=== PATIENT | female | born 1945 | race Hispanic/Latino ===

== ENCOUNTER → 2018-06-07 | Day surgery (SDC) | payer MEDICARE, OTHER ==
[2018-06-05 11:22] LABS: BASOPHILS # (AUTO) 0.1 (0.0-0.1); BASOPHILS % 0.6 % (0.0-1.0); EOSINOPHILS # (AUTO) 0.2 (0.0-0.4); EOSINOPHILS % 2.2 % (0.0-6.0); HEMATOCRIT 37.6 % (34.2-44.1); HEMOGLOBIN 12.5 g/dL (12.0-16.0); LYMPHOCYTES # (AUTO) 2.5 (1.0-3.2); LYMPHOCYTES % 31.5 % (18.0-39.1); MEAN CORPUSCULAR HEMOGLOBIN 33.2 pg (28-32); MEAN CORPUSCULAR HGB CONC 33.2 g/dL (31-35); MONOCYTES # (AUTO) 0.6 (0.2-0.8); MONOCYTES % 8.1 % (4.4-11.3); NEUTROPHILS # (AUTO) 4.5 (2.1-6.9); NEUTROPHILS % 57.3 % (38.7-80.0); PLATELET COUNT 207 x10e3/uL (140-360); RED BLOOD COUNT 3.76 x10e6/uL (3.6-5.1); RED CELL DISTRIBUTION WIDTH 12.2 % (11.7-14.4)
--- NOTE | 2018-06-05 11:22 | Diagnostic Imaging Report ---
EXAMINATION: PA and lateral views of the chest. COMPARISON: None CLINICAL HISTORY: Preoperative evaluation, urologic surgery DISCUSSION: Lines/tubes: None. Lungs: The lungs are well inflated and clear. No pneumonia or pulmonary edema. Pleura: No pleural effusion or pneumothorax. Heart and mediastinum: The cardiomediastinal silhouette is normal. Bones and soft tissues: No acute bony abnormalities. IMPRESSION: No acute cardiopulmonary abnormalities. Signed by: Dr. Taqueria Daniels M.D. on 06/05/2018 11:18 AM
[2018-06-05 11:39] LABS: ANION GAP 15.4 mmol/L (8-16); CALCIUM 9.4 mg/dL (8.4-10.2); CREATININE, SERUM 1.09 mg/dL (0.57-1.11); POTASSIUM 4.4 mmol/L (3.5-5.1)
[~2018-06-07] MED LIST: ATORVASTATIN CA20 MG PO; CALCIUM CARBON500 MG PO; CEFTRIAXONE SOD 1 GM VIAL ONE; CIPRO500 MG PO; DEXILANT60 MG PO; FAMOTIDINE20 MG PO; FOLIC ACID1 MG PO; GABAPENTIN600 MG PO; GLIMEPIRIDE2 MG PO; IOPAMIDOL 610MG/1ML 300 MG/ML VIAL IV ONE; LANTUS 3ML100 UNITS/ SC; PROPOFOL IV EMULSION 10 MG/ML 20 ML VIAL ONE; SEVOFLURANE INHAL SOLN 250 ML PEN BTL ONE; VITAMIN B-12500 MCG PO; VITAMIN D250000 UNIT PO
--- NOTE | 2018-06-07 07:34 | Operative Report ---
DATE OF PROCEDURE: June 07, 2018 PREOPERATIVE DIAGNOSES 1. Multiple chronic urinary tract infections. 2. Clinical signs and symptoms of interstitial cystitis without hematuria. POSTOPERATIVE DIAGNOSES 1. Multiple chronic urinary tract infections. 2. Clinical signs and symptoms of interstitial cystitis without hematuria. 3. Grade 2 cystocele. 4. Vaginal atrophy. PROCEDURES 1. Cystourethroscopy with hydrodistention (entirely separate procedure for the clinical signs and symptoms of interstitial cystitis). 2. Cystourethroscopy with left ureter catheterization and left retrograde pyelogram (separate procedure for multiple chronic urinary tract infections). 3. Cystoscopy with right ureteral catheterization and right retrograde pyelogram (separate procedure for the multiple chronic urinary tract infections). 4. Supervision of fluoroscopy. 5. Interpretation of retrograde pyelography. ANESTHESIA: General. ESTIMATED BLOOD LOSS: Minimal. COMPLICATIONS: None. INDICATIONS FOR PROCEDURE: Ms. Bone is a 72-year-old female with multiple chronic urinary tract infections. She and I had a long discussion about alternatives, risks and benefits including doing nothing, cystoscopy, IVP, retrograde pyelograms, renal ultrasound, and hydrodistention. She voiced understanding of the options, alternatives, risks, and benefits, and nephrotoxic risk of dye. She elected to avoid intravenous dye. PROCEDURE IN DETAIL: After informed consent was obtained, the patient was taken to the operating suite and placed supine on the table, and underwent general anesthesia by the anesthesia service. She was then placed in the dorsal lithotomy position and sterilely prepped and draped in the standard fashion for cystoscopy. Severe vaginal atrophy was noted, as well as introital stenosis. There was a grade 2 cystocele. The urethra was catheterized with a 22.5-Portuguese cystoscope, and panendoscopy of the bladder revealed some squamous metaplasia, mild cystitis cystica. There were no tumors. There were no stones. Hydrodistention was performed and revealed a capacity of 800 mL. No glomerulations. No Orestes's ulcers. Bilateral retrograde pyelograms were performed, which were normal. The bladder was drained. The patient was awakened from anesthesia and transported to the recovery room in excellent condition. SUPERVISION OF FLUOROSCOPY, INTERPRETATION OF RETROGRADE URETERAL PYELOGRAPHY: I was present throughout the entire procedure and I supervised the use of fluoroscopy as there was no radiologist present at any time during this procedure. Attention was turned toward the left and right ureteral orifices. They were catheterized with an 8-Portuguese cone-tipped catheter. Bilateral retrograde pyelograms were performed revealing delicate ureters, delicate pelviceal systems. No evidence of filling defects. No evidence of hydronephrosis. IMPRESSION: Normal retrograde pyelograms. Job#: [id number]
[2018-06-07 08:20] VITALS: BP 141/73
--- OUTSIDE RECORDS SUMMARY | 2018-06-18 11:04 | XMS REPORT | Continuity of Care Document ---
Author Author [facility] Interface Address Unknown Phone Unavailable Problems Problem Status Onset Date Classification Date Reported Comments Source ABDOMINAL PAI0, ACUTE, NAUSEA, VOMITING Active 03/24/2017 [facility] ABDOMINAL PAIN Active 03/24/2017 [facility] DIAPHRAGMATIC HERNIA WITHOUT OBSTRUCTIO Active 03/01/2017 [facility] K44.9 DIAPHRAGMATIC HERNIA WITHOUT OBSTR Active 11/07/2016 [facility] K44.9 DIAPHRAGMATIC HERNIA, K21.9 GERD Active 11/07/2016 [facility] GERD K21.9, ABD PAIN R10.13, K22.70 MONTEZ Active 09/18/2016 [facility] CHRONIC K21.9, ABD PAIN R10.13 Active 09/18/2016 [facility] Z12.31 SCREENING MAMMOGRAM Active 08/25/2016 [facility] ABDOMINAL PAIN EPIGASTRIC, R10.13 Active 07/05/2016 [facility] ABDOMINAL PAIN EPIGASTRIC Active 07/05/2016 [facility] ABD PAIN Active 07/05/2016 [facility] M25.519 / Active 05/18/2016 [facility] HYPOTENSION Active 03/13/2016 [facility] FALL Active 03/13/2016 [facility] FALL, DEHYDRATION, URINARY TRACT INFECTI Active 03/13/2016 [facility] LEFT LOWER QUAD ABDOMINAL PAIN Active 02/20/2014 [facility] CHEST PAIN Active 08/14/2012 [facility] FALL, VARIOUS INJURY Active 05/19/2012 [facility] 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 [facility] BILATERAL KNEE ARTHRITIS Active 05/16/2011 [facility] Knee replacement<sup>1</sup> Active 05/16/2011 Problem 08/16/2012 1right total knee replacement [facility] Knee replacement<sup>1</sup> Active 05/16/2011 Problem 02/23/2014 1right total knee replacement [facility] Knee replacement<sup>2</sup> Active 05/16/2011 Problem 03/29/2017 right total knee replacement [facility] Osteoarthritis of knee<sup>3</sup> Active 02/06/2011 Problem 03/29/2017 Data migrated from [facility] on 01/30/15. [facility] CHANGE IN BOWEL HABITS, ABDOMINAL PAIN Active 03/03/2010 [facility] RT DISTAL URETERAL OBSTRUCTION Active 01/03/2010 [facility] Diabetes mellitus Active Problem 08/16/2012 [facility] GERD - Gastro-esophageal reflux disease Active Problem 08/16/2012 [facility] Hypercholesterolemia Active Problem 08/16/2012 [facility] Pain Active Problem 08/16/2012 [facility] Diabetes mellitus Active Problem 03/29/2017 [facility] GERD - Gastro-esophageal reflux disease Active Problem 03/29/2017 [facility] Hypercholesterolemia Active Problem 03/29/2017 [facility] Pain Active Problem 03/29/2017 [facility] Diabetes Active Problem 03/29/2017 [facility] Diverticulitis Resolved Problem 03/29/2017 [facility] Esophageal hernia Resolved Problem 03/29/2017 [facility] Hypercholesteremia Active Problem 03/29/2017 [facility] Anemia Active Problem 03/29/2017 [facility] Acid reflux Active Problem 03/29/2017 [facility] Hernia, hiatal Active Problem 03/29/2017 [facility] Peripheral neuropathy Active Problem 03/29/2017 [facility] Type 2 diabetes mellitus without complication, without long-term current use of insulin Active Diagnosis 02/21/2017 [facility] Hypercholesterolemia Active Diagnosis 02/21/2017 [facility] Obesity Active Diagnosis 02/21/2017 [facility] PVD Active Diagnosis 02/21/2017 [facility] Abnormal ECG Active Diagnosis 02/21/2017 [facility] Preop cardiovascular exam Active Diagnosis 02/21/2017 [facility] Nonrheumatic mitral valve regurgitation Active Diagnosis 02/21/2017 [facility] ANEMIA NOS Active [facility] GLUTATHIONE DIS ANEMIA Active [facility] URIN TRACT INFECTION NOS Active [facility] ARTHROPATHY NEC-UNSPEC Active [facility] ADMINISTRTVE ENCOUNT NOS Active [facility] ABDMNAL PAIN LT LWR QUAD Active [facility] HYPOTENSION, UNSPECIFIED Active [facility] PAIN IN UNSPECIFIED SHOULDER Active [facility] PAIN IN RIGHT KNEE Active [facility] PAIN IN LEFT KNEE Active [facility] EPIGASTRIC PAIN Active [facility] ENCNTR SCREEN MAMMOGRAM FOR MALIGNANT NE Active [facility] GASTRO-ESOPHAGEAL REFLUX DISEASE WITHOUT Active [facility] 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2017 [facility] Metronidazole 500 MG Oral Tablet [Flagyl] 500 mg=1 tab, PO, Q8H, X 7 day, # 21 tab, 0 Refill(s), Pharmacy: [facility]/pharmacy #[id number] Active 03/26/2017 [facility] Magnesium Oxide 400 mg, 1 tab, Route: PO, Drug form: TAB, Daily, Dosing Weight 66.818, kg, Start date: 03/26/17 9:00:00 CDT, Duration: 30 day, Stop date: 04/24/17 9:00:00 CDTNotes: (Same as: Mag-Ox 400) Magnesium ox gerhard [id number] elemental magnesium Dose=____mg magnesium oxide (___mg elemental magnesium) Inactive 03/26/2017 [facility] heparin 5,000 unit, 1 mL, Route: SUB-Q, Drug form: INJ, Q12H, Dosing Weight 66.818, kg, Start date: 03/25/17 9:00:00 CDT, Duration: 30 day, Stop date: 04/23/17 21:00:00 CDTNotes: porcine heparin No Longer Active 03/25/2017 [facility] Metronidazole 500 mg, 100 mL, Route: IVPB, Drug form: INJ, [id number], Dosing Weight 67.727, kg, Start date: 03/25/17 9:00:00 CDT, Duration: 10 day, Stop date: 04/04/17 1:00:00 CDT, ABX Indication: Infectious Diarrhea Notes: (Same as: Flagyl) Avoid alcohol. No Longer Active 03/25/2017 [facility] Insulin, Aspart, Human 4 unit, 0.04 mL, Route: SUB-Q, Drug form: SOLN, Sliding Scale, Dosing Weight 66.818, kg, PRN Blood Glucose Results, Start date: 03/25/17 6:41:00 CDT, Duration: 30 day, Stop date: 04/24/17 6:40:00 CDTNotes: Roll in palms of hands gently; Do not shake vigorously. (Same as: NovoLOG) "single patient use only" WASTE: F/P - Black; E - Municipal Trash Bin Stable for 28 days at room temperature. Expires in days from Date No Longer Active 03/25/2017 [facility] Dextrose 50% Syringe 12.5 gm, 25 mL, Route: IVP, Drug Form: INJ, Dosing Weight 66.818, kg, PRN, PRN Blood Glucose Results, Start date: 03/25/17 6:41:00 CDT, Duration: 30 day, Stop date: 04/24/17 6:40:00 CDT No Longer Active 03/25/2017 [facility] Glucagon 1 mg, Route: IM, Drug form: PDR/INJ, PRN, Dosing Weight 66.818, kg, PRN Blood Glucose Results, Start date: 03/25/17 6:41:00 CDT, Duration: 30 day, Stop date: 04/24/17 6:40:00 CDT No Longer Active 03/25/2017 [facility] Magnesium Sulfate 2 gm, 50 mL, Route: IV, Drug form: INJ, ONCE, Dosing Weight 66.818, kg, Priority: Routine, Start date: 03/25/17 6:39:00 CDT, Stop date: 03/25/17 6:39:00 CDTNotes: WASTE: F/P - Sink; E - Municipal Tra sh Bin Inactive 03/25/2017 [facility] Acetaminophen 650 mg, 2 tab, Route: PO, Drug form: TAB, Q4H, Dosing Weight 67.727, kg, PRN Pain 1-3/Temp > 100.4 F, Start date: 03/25/17 2:07:00 CDT, Duration: 30 day, Stop date: 04/24/17 2:06:00 CDTNotes: Do not exceed 4 gm/day. (Same as: Tylenol) No Longer Active 03/25/2017 [facility] Morphine 2 mg, 1 mL, Route: IVP, Drug form: INJ, Q4H, Dosing Weight 67.727, kg, PRN Pain Score 7-10, Start date: 03/25/17 2:07:00 CDT, Duration: 30 day, Stop date: 04/24/17 2:06:00 CDTNotes: (Same as:MORPhine Sulfate) No Longer Active 03/25/2017 [facility] Saline Flush 0.9% 10 ml, Route: IVP, Drug Form: INJ, Dosing Weight 67.727, kg, PRN, PRN Line Flush, Start date: 03/25/17 2:07:00 CDT, Duration: 30 day, Stop date: 04/24/17 2:06:00 CDTNotes: Same as: BD Posiflush Sterile No Longer Active 03/25/2017 [facility] sodium chloride 0.9% 1000 ml INJ 1,000 mL 1,000 mL, Rate: 100 ml/hr, Infuse over: 10 hr, Route: IV, Dosing Weight 67.727 kg, Total Volume: 1,000, Start date: 03/25/17 2:07:00 CDT, Duration: 1 day, Stop date: 03/26/17 2:06:00 CDT No Longer Active 03/25/2017 [facility] Ceftriaxone 1 gm, Route: IVPB, Drug form: PDR/INJ, [id number], Dosing Weight 67.727, kg, Start date: 03/25/17 2:00:00 CDT, Duration: 10 day, Stop date: 04/03/17 2:00:00 CDT, ABX Indication: Infectious DiarrheaNotes: (Same As: Rocephin). Use with 100 mL NS and infuse over 30 min MEDICATION WASTE Product Size: 1000 mg Product Wasted: ___ mg No Longer Active 03/25/2017 [facility] Zofran 4 mg, 2 mL, Route: IV, Drug form: INJ, Q4H, Dosing Weight 67.727, kg, PRN as needed for nausea/vomiting, Start date: 03/25/17 1:09:00 CDT, Duration: 30 day, Stop date: 04/24/17 1:08:00 CDTNotes: (Same as: Zofran) MEDICATION WASTE Product Size: 4 mg Product Wasted: ___ mg No Longer Active 03/25/2017 [facility] Flagyl 500 mg, 100 mL, Route: IVPB, Drug form: INJ, ONCE, Dosing Weight 67.727, kg, Priority: STAT, Start date: 03/25/17 1:07:00 CDT, Duration: 1 doses or times, Stop date: 03/25/17 1:07:00 CDT, ABX Indication: Intra-abdominal InfectionNotes: (Same as: Flagyl) Avoid alcohol. Inactive 03/25/2017 [facility] sodium chloride 0.9% 1000 ml INJ 1,000 mL 1,000 mL, Rate: 125 ml/hr, Infuse over: 8 hr, Route: IV, Dosing Weight 67.727 kg, Total Volume: 1,000, Start date: 03/25/17 0:33:00 CDT, Duration: 30 day, Stop date: 04/24/17 0:32:00 CDT Inactive 03/25/2017 [facility] Cipro 400 mg, 200 mL, Route: IVPB, Drug form: INJ, ONCE, Dosing Weight 67.727, kg, Priority: STAT, Start date: 03/24/17 22:40:00 CDT, Duration: 1 doses or times, Stop date: 03/24/17 22:40:00 CDT, ABX Indication: Urinary Tract InfectionNotes: Do not refrigerate Inactive 03/25/2017 [facility] Zofran 4 mg, 2 mL, Route: IVP, Drug form: INJ, ONCE, Dosing Weight 67.727, kg, Priority: STAT, Start date: 03/24/17 21:13:00 CDT, Stop date: 03/24/17 21:13:00 CDTNotes: (Same as: Zofran) MEDICATION WASTE Product Size: 4 mg Product Wasted: ___ mg Inactive 03/25/2017 [facility] Morphine 2 mg, 1 mL, Route: IVP, Drug form: INJ, ONCE, Dosing Weight 67.727, kg, Priority: STAT, Start date: 03/24/17 21:12:00 CDT, Stop date: 03/24/17 21:12:00 CDTNotes: (Same as:MORPhine Sulfate) Inactive 03/25/2017 [facility] NS (Bolus) IV 1,000 mL, 1,000 ml/hr, Infuse Over: 1 hr, Route: IV, 1,000, Drug form: INJ, ONCE, Priority: STAT, Dosing Weight 67.727 kg, Start date: 03/24/17 21:12:00 CDT, Duration: 1 doses or times, Stop date: 21:12:00 CDT Inactive 03/25/2017 [facility] potassium chloride 20 mEq oral tablet, extended release 20 mEq, 1 tab, Route: PO, Drug form: ERTAB, ONCE, Dosing Weight 72.045, kg, Start date: 03/14/17 10:59:00 CDT, Stop date: 03/14/17 10:59:00 CDTNotes: (Same as: K-Dur 20) "Do Not Crush" With food and full glass of water Inactive 03/14/2017 [facility] Magnesium Sulfate 4 gm, 100 mL, Route: IVPB, Drug form: INJ, ONCE, Dosing Weight 72.045, kg, Start date: 03/14/17 10:54:00 CDT, Duration: 2 hr, Stop date: 03/14/17 10:54:00 CDTNotes: WASTE: F/P - Sink; E - Municipal Trash Bin Inactive 03/14/2017 [facility] Docusate Sodium 100 MG Oral Capsule [Colace] 100 mg, 1 cap, Route: PO, Drug form: CAP, BID, Dosing Weight 72.045, kg, Start date: 03/14/17 9:00:00 CDT, Duration: 30 day, Stop date: 04/12/17 17:00:00 CDTNotes: (Same as: Colace) (Do Not Crush) Inactive 03/14/2017 [facility] Tylenol with Codeine 120 mg-12 mg/5 mL oral liquid 15 ml, Route: PO, Drug Form: LIQ, Dosing Weight 72.045, kg, Q6H, PRN Pain Score 1-3, Start date: 03/13/17 20:34:00 CDT, Duration: 30 day, Stop date: 04/12/17 20:33:00 CDTNotes: (acetaminophen-codeine 120-12 mg/5 ml oral liq) Do not exceed 4gm/day of acetaminophen. (Same as: Tylenol w/Codeine) No Longer Active 03/14/2017 [facility] Reglan 10 mg, 2 mL, Route: IVP, Drug form: INJ, Q6H, Dosing Weight 72.045, kg, Start date: 03/13/17 18:00:00 CDT, Duration: 30 day, Stop date: 04/12/17 12:00:00 CDTNotes: (Same as: Reglan) No Longer Active 03/13/2017 [facility] phenol 1 spray, Route: TOP, Daily, Drug form: SPRY, PRN Sore Throat, Start date: 03/13/17 14:27:00 CDT, Duration: 30 day, Stop date: 04/12/17 14:26:00 CDTNotes: Chloraseptic [place] (Same as: Chloraseptic, Sore Throat [place]) WASTE: F/P - Black; E - Municipal Trash Bin No Longer Active 03/13/2017 [facility] Dextrose 50% in Water IV 50 mL, Route: IVP, Start date: 03/13/17 12:42:00 CDT, Duration: 30 day, Stop date: 04/12/17 12:41:00 CDT, PRN Blood Glucose Results No Longer Active 03/13/2017 [facility] insulin aspart 10 unit, 0.1 mL, Route: SUB-Q, Drug form: SOLN, Sliding Scale, PRN Blood Glucose Results, Start date: 03/13/17 12:42:00 CDT, Duration: 30 day, Stop date: 04/12/17 12:41:00 CDTNotes: Roll in palms of hands gently; Do not shake vigorously. (Same as: NovoLOG) "single patient use only" WASTE: F/P - Black; E - Municipal Trash Bin Stable for 28 days at room temperature. Expires in days from Date No Longer Active 03/13/2017 [facility] insulin aspart 2 unit, 0.02 mL, Route: SUB-Q, Drug form: SOLN, Sliding Scale, PRN Blood Glucose Results, Start date: 03/13/17 12:41:00 CDT, Duration: 30 day, Stop date: 04/12/17 12:40:00 CDTNotes: Roll in palms of hands gently; Do not shake vigorously. (Same as: NovoLOG) "single patient use only" WASTE: F/P - Black; E - Municipal Trash Bin Stable for 28 days at room temperature. Expires in days from Date No Longer Active 03/13/2017 [facility] Tylenol 650 mg, 20.3 mL, Route: PO, Drug form: LIQ, Q6H, PRN Pain Score 1-3, Start date: 03/13/17 12:27:00 CDT, Duration: 30 day, Stop date: 04/12/17 12:26:00 CDT No Longer Active 03/13/2017 [facility] Tylenol 650 mg, 2 tab, Route: PO, Drug form: TAB, Q6H, Dosing Weight 72.045, kg, PRN Pain Score 1-3, Start date: 03/13/17 11:11:00 CDT, Duration: 30 day, Stop date: 04/12/17 11:10:00 CDTNotes: Do not exceed 4 gm/day. (Same as: Tylenol) Inactive 03/13/2017 [facility] pantoprazole 40 mg, 1 tab, Route: PO, Drug form: ECTAB, Daily, Dosing Weight 72.045, kg, Start date: 03/13/17 9:00:00 CDT, Duration: 30 day, Stop date: 04/11/17 9:00:00 CDTNotes: Tablet should not be chewed or cr ushed. (Same as: Protonix) No Longer Active 03/13/2017 [facility] Enoxaparin 40 mg, 0.4 mL, Route: SUB-Q, Drug form: INJ, [id number], Dosing Weight 72.045, kg, Start date: 03/13/17 8:00:00 CDT, Duration: 30 day, Stop date: 04/11/17 8:00:00 CDTNotes: (Same as: Lovenox) No Longer Active 03/13/2017 [facility] Cefoxitin 2 gm, Route: IVPB, [id number], Dosing Weight 72.045, kg, Start date: 03/12/17 18:00:00 CDT, Duration: 24 hr, Stop date: 03/13/17 6:00:00 CDT, ABX Indication: Surgical ProphylaxisNotes: (Same As: Mefoxin) MEDICATION WASTE Product Size: 2000 mg Product Wasted: ___ mg No Longer Active 03/12/2017 [facility] Morphine 2 mg, 1 mL, Route: IVP, Drug form: INJ, ONCE, Dosing Weight 72.045, kg, Start date: 03/12/17 16:42:00 CDT, Stop date: 03/12/17 16:42:00 CDTNotes: (Same as:MORPhine Sulfate) Inactive 03/12/2017 [facility] Ondansetron 4 mg, 2 mL, Route: IVP, Drug form: INJ, ONCE, Dosing Weight 72.045, kg, PRN Nausea & Vomiting, Start date: 03/12/17 16:36:00 CDTNotes: (Same as: Zofran) MEDICATION WASTE Product Size: 4 mg Product Wasted: ___ mg Inactive 03/12/2017 [facility] Promethazine 6.25 mg, 0.25 mL, Route: IVPB, ONCE, Dosing Weight 72.045, kg, PRN Nausea & Vomiting, Start date: 03/12/17 16:36:00 CDTNotes: Do not give IV push. (Same as: Phenergan) Inactive 03/12/2017 [facility] Meperidine 12.5 mg, 0.5 mL, Route: IVP, Drug form: INJ, Q30Min, Dosing Weight 72.045, kg, PRN Other -See Comment, For shivering, Start date: 03/12/17 16:36:00 CDT, Duration: 2 doses or times, Stop date: Limited # of timesNotes: (Same as: Demerol) "Use Precaution in Elderly, Seizure disorders, and Renal impairment" Inactive 03/12/2017 [facility] Diphenhydramine 12.5 mg, 0.25 mL, Route: IVP, Drug form: INJ, Q6H, Dosing Weight 72.045, kg, PRN Itching, Start date: 03/12/17 16:36:00 CDT, Duration: 30 day, Stop date: 04/11/17 16:35:00 CDTNotes: (Same as: Ciara yeung) Inactive 03/12/2017 [facility] Albuterol 0.83 MG/ML Inhalant Solution 2.49 mg, 3 mL, Route: NEB, Drug form: SOLN, Q20Min, Dosing Weight 72.045, kg, PRN Wheezing, Priority: STAT, Start date: 03/12/17 16:36:00 CDT, Duration: 30 day, Stop date: 04/11/17 16:35:00 CDTNotes: SEE RT DOCUMENTATION (Same as: Proventil) Inactive 03/12/2017 [facility] Naloxone 0.4 mg, 1 mL, Route: IVP, Drug form: INJ, Q2MIN, Dosing Weight 72.045, kg, PRN Narcotic Reversal, Start date: 03/12/17 16:36:00 CDT, Duration: 8 doses or times, Stop date: Limited # of timesNotes: Same as Narcan Inactive 03/12/2017 [facility] Flumazenil 0.2 mg, 2 mL, Route: IVP, Drug form: INJ, PRN, Dosing Weight 72.045, kg, PRN Benzodiazepine Reversal, Initial dose, Start date: 03/12/17 16:36:00 CDT, Duration: 30 day, Stop date: 04/11/17 16:35:00 C DTNotes: (Same as: Romazicon) Inactive 03/12/2017 [facility] Morphine 4 mg, 1 mL, Route: IVP, Drug form: INJ, Q5Min, Dosing Weight 72.045, kg, PRN Pain Score 7-10, Start date: 03/12/17 16:36:00 CDT, Duration: 3 doses or times, Stop date: Limited # of timesNotes: (Same as:MORPhine Sulfate) Inactive 03/12/2017 [facility] Fentanyl 25 microgram, 0.5 mL, Route: IVP, Drug form: INJ, Q5Min, Dosing Weight 72.045, kg, PRN Pain Score 4-6, Priority: Routine, Start date: 03/12/17 16:36:00 CDT, Duration: 4 doses or times, Stop date: Limited # of timesNotes: (Same as: Sublimaze) Preservative free. Inactive 03/12/2017 [facility] Labetalol 10 mg, 2 mL, Route: IVP, Drug form: INJ, Q5Min, Dosing Weight 72.045, kg, PRN Elevated BP, Start date: 03/12/17 16:36:00 CDT, Duration: 5 doses or times, Stop date: Limited # of times Inactive 03/12/2017 [facility] esmolol 10 mg, 1 mL, Route: IVP, Drug form: INJ, Q5Min, Dosing Weight 72.045, kg, PRN Other -See Comment, Start date: 03/12/17 16:36:00 CDT, Duration: 5 doses or times, Stop date: Limited # of timesNotes: (Same as: Brevibloc) Inactive 03/12/2017 [facility] Hydralazine 10 mg, 0.5 mL, Route: IVP, Drug form: INJ, Q20Min, Dosing Weight 72.045, kg, PRN Elevated BP, Start date: 03/12/17 16:36:00 CDT, Duration: 2 doses or times, Stop date: Limited # of timesNotes: (Same as: Apresoline) Push over 5 minutes Inactive 03/12/2017 [facility] Calcium Chloride 0.0014 MEQ/ML / Potassium Chloride 0.004 MEQ/ML / Sodium Chloride 0.103 MEQ/ML / Sodium Lactate 0.028 MEQ/ML Injectable Solution 1,000 mL, Rate: 125 ml/hr, Infuse over: 8 hr, Route: IV, Dosing Weight 72.045 kg, Total Volume: 1,000, Start date: 03/12/17 16:36:00 CDT, Duration: 30 day, Stop date: 04/11/17 16:35:00 CDT Inactive 03/12/2017 [facility] Ondansetron 4 mg, 2 mL, Route: IVP, Drug form: INJ, Q6H, Dosing Weight 72.045, kg, PRN Nausea & Vomiting, Start date: 03/12/17 16:01:00 CDT, Duration: 30 day, Stop date: 04/11/17 16:00:00 CDTNotes: (Same as: Zofran) MEDICATION WASTE Product Size: 4 mg Product Wasted: ___ mg No Longer Active 03/12/2017 [facility] Morphine 4 mg, 1 mL, Route: IVP, Drug form: INJ, Q3H, Dosing Weight 72.045, kg, PRN Pain Score 4-6, Start date: 03/12/17 16:01:00 CDT, Duration: 30 day, Stop date: 04/11/17 16:00:00 CDTNotes: (Same as:MORPhine Sulfate) No Longer Active 03/12/2017 [facility] Calcium Chloride 0.0014 MEQ/ML / Potassium Chloride 0.004 MEQ/ML / Sodium Chloride 0.103 MEQ/ML / Sodium Lactate 0.028 MEQ/ML Injectable Solution 1,000 mL, Rate: 125 ml/hr, Infuse over: 8 hr, Route: IV, Dosing Weight 72.045 kg, Total Volume: 1,000, Start date: 03/12/17 16:01:00 CDT, Duration: 30 day, Stop date: 04/11/17 16:00:00 CDT No Longer Active 03/12/2017 [facility] ondansetron (ANES) Route: IV, Drug form: INJ, ONCE, Stop date: 03/12/17 15:29:00 CDT Inactive 03/12/2017 [facility] glycopyrrolate (ANES) Route: IV, Drug form: INJ, ONCE, Stop date: 03/12/17 15:29:00 CDT Inactive 03/12/2017 [facility] morphine Sulfate (ANES) Route: IV, Drug form: INJ, ONCE, Stop date: 03/12/17 15:29:00 CDT Inactive 03/12/2017 [facility] neostigmine (ANES) Route: IV, Drug form: INJ, ONCE, Stop date: 03/12/17 15:29:00 CDT Inactive 03/12/2017 [facility] fentaNYL (ANES) Route: IV, Drug form: INJ, ONCE, Stop date: 03/12/17 12:38:00 CDT Inactive 03/12/2017 [facility] norepinephrine (ANES) Route: IV, Drug form: INJ, ONCE, Stop date: 03/12/17 12:23:00 CDT Inactive 03/12/2017 [facility] acetaminophen (ANES) Route: IV, Drug form: INJ, ONCE, Stop date: 03/12/17 12:06:00 CDT Inactive 03/12/2017 [facility] norepinephrine (ANES) Route: IV, Drug form: INJ, ONCE, Stop date: 03/12/17 11:56:00 CDT Inactive 03/12/2017 [facility] propofol (ANES) Route: IV, Drug form: INJ, ONCE, Stop date: 03/12/17 11:51:00 CDT Inactive 03/12/2017 [facility] fentaNYL (ANES) Route: IV, Drug form: INJ, ONCE, Stop date: 03/12/17 11:51:00 CDT Inactive 03/12/2017 [facility] vecuronium (ANES) Route: IV, Drug form: INJ, ONCE, Stop date: 03/12/17 11:51:00 CDT Inactive 03/12/2017 [facility] lidocaine (ANES) Route: IV, Drug form: INJ, ONCE, Stop date: 03/12/17 11:46:00 CDT Inactive 03/12/2017 [facility] famotidine (ANES) Route: IV, Drug form: INJ, ONCE, Stop date: 03/12/17 11:41:00 CDT Inactive 03/12/2017 [facility] metoclopramide (ANES) Route: IV, Drug form: INJ, ONCE, Stop date: 03/12/17 11:41:00 CDT Inactive 03/12/2017 [facility] piperacillin-tazobactam (ANES) (ANES) Route: IV, Drug form: INJ, Start date: 03/12/17 10:50:00 CDT, Stop date: 03/12/17 11:50:00 CDT Inactive 03/12/2017 [facility] LR 1000 mL INJ (ANES) Route: IV, Total Volume: 1,000, Start date: 03/12/17 10:45:00 CDT, Stop date: 03/12/17 11:45:00 CDT Inactive 03/12/2017 [facility] Albuterol 0.833 MG/ML / Ipratropium [place] 0.167 MG/ML Inhalant Solution 3 mL, Route: NEB, Drug Form: SOLN, Dosing Weight 72.045, kg, ONCE, STAT, Start date: 03/12/17 7:20:00 CDT, Stop date: 03/12/17 7:20:00 CDTNotes: (Same as: Duoneb) Inactive 03/12/2017 [facility] Calcium Chloride 0.0014 MEQ/ML / Potassium Chloride 0.004 MEQ/ML / Sodium Chloride 0.103 MEQ/ML / Sodium Lactate 0.028 MEQ/ML Injectable Solution 1,000 mL, Rate: 25 ml/hr, Infuse over: 40 hr, Route: IV, Dosing Weight 72.045 kg, Total Volume: 1,000, Start date: 03/12/17 7:20:00 CDT, Duration: 1 day, Stop date: 03/13/17 7:19:00 CDT Inactive 03/12/2017 [facility] Vitamin D2 50,000 intl units oral capsule 50,000 IntlUnit=1 cap, PO, every other week, 0 Refill(s) Active 03/08/2017 [facility] gabapentin 300 MG Oral Capsule 300 mg=1 cap, PO, QAM, 0 Refill(s) Active 03/08/2017 [facility] glimepiride 4 MG Oral Tablet [Amaryl] 4 mg=1 tab, PO, BID, # 30 tab, 0 Refill(s) Active 03/08/2017 [facility] B Complex 100 1 tab, PO, Daily, 0 Refill(s) Active 03/08/2017 [facility] omeprazole 40 mg oral delayed release capsule 40 mg=1 cap, PO, Daily, # 30 cap, 0 Refill(s) Active 03/08/2017 [facility] atorvastatin 40 MG Oral Tablet [Lipitor] 40 mg=1 tab, PO, Bedtime, # 30 tab, 0 Refill(s) Active 03/08/2017 [facility] 24 HR Metformin hydrochloride 1000 MG / sitagliptin 50 MG Extended Release Tablet [Janumet ] 1 tab, PO, BID-Meals, # 60 tab, 3 Refill(s) Active 03/08/2017 [facility] Omnipaque 300 100 mL, 100 ml/hr, Route: IV, Drug Form: LEELA MORGANALL, Start date: 07/21/16 15:00:00 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 WASTE: F/P - Black; E - Municipal Trash Bin Inactive 07/21/2016 [facility] Potassium Chloride 20 MEQ Extended Release Tablet 20 mEq=1 tab, PO, Daily, # 7 tab, 0 Refill(s) Active 03/17/2016 [facility] magnesium oxide 500 mg oral tablet 500 mg=1 tab, PO, Daily, X 7 day, # 7 tab, 0 Refill(s) Active 03/17/2016 [facility] ciprofloxacin 500 mg oral tablet 500 mg=1 tab, PO, [id number], X 10 day, # 20 tab, 0 Refill(s) Active 03/17/2016 [facility] Calcium Carbonate 1500 MG / Cholecalciferol 400 UNT Oral Tablet 1 tab, Route: PO, Drug Form: TAB, Dosing Weight 81.818, kg, BID, Start date: 03/17/16 9:00:00 CDT, Duration: 30 day, Stop date: 04/15/16 17:00:00 CDTNotes: (Same As: Citracal Caplets Plus D) Inactive 03/17/2016 [facility] Magnesium Sulfate 2 gm, 50 mL, Route: IVPB, Drug form: INJ, ONCE, Dosing Weight 81.818, kg, Total dose=2 gm, Start date: 03/17/16 8:29:00 CDT, Duration: 1 doses or times, Stop date: 03/17/16 8:29:00 CDTNotes: WASTE: F/P - Sink; E - [employer] Trash Bin Inactive 03/17/2016 [facility] Ciprofloxacin 500 mg, 1 tab, Route: PO, Drug form: TAB, [id number], Dosing Weight 81.818, kg, Start date: 03/16/16 18:00:00 CDT, Duration: 10 day, Stop date: 03/26/16 6:00:00 CDTNotes: May interfere w/enteral feedings - Take 1 hr before or 2 hrs after antacids, dairy pdt & minerals. On empty stomach. No Longer Active 03/16/2016 [facility] Ibuprofen 400 MG Oral Tablet 400 mg, 1 tab, Route: PO, Drug form: TAB, Q4H, Dosing Weight 81.818, kg, PRN See Nurse's Notes, Start date: 03/16/16 17:28:00 CDT, Duration: 30 day, Stop date: 04/15/16 17:27:00 CDT, Headache 4-10Notes: (Same as: Motrin) "Do Not Crush" Give with food. No Longer Active 03/16/2016 [facility] Potassium Chloride 20 MEQ Extended Release Tablet 40 mEq, 2 tab, Route: PO, Drug form: ERTAB, ONCE, Dosing Weight 81.818, kg, Start date: 03/16/16 11:24:00 CDT, Stop date: 03/16/16 11:24:00 CDTNotes: (Same as: K-Dur 20) "Do Not Crush" With food and full glass of water Inactive 03/16/2016 [facility] Methocarbamol 500 mg, 1 tab, Route: PO, Drug form: TAB, TID, Dosing Weight 81.818, kg, PRN Muscle Spasms, Start date: 03/16/16 11:16:00 CDT, Duration: 30 day, Stop date: 04/15/16 11:15:00 CDTNotes: (Same as:Robaxin) No Longer Active 03/16/2016 [facility] Neutra-Phos 1 pkt, Route: PO, Drug Form: PDR/REC, Dosing Weight 81.818, kg, BID-Meals, Start date: 03/15/16 14:30:00 CDT, Duration: 2 day, Stop date: 03/17/16 8:00:00 CDTNotes: (Same as: Neutra-Phos) Each 1.25 gm pkt has 250mg phosphorous. Mix w/2.5oz water and stir. No Longer Active 03/15/2016 [facility] Potassium Chloride 20 MEQ Extended Release Tablet 40 mEq, 2 tab, Route: PO, Drug form: ERTAB, ONCE, Dosing Weight 81.818, kg, Start date: 03/15/16 13:26:00 CDT, Stop date: 03/15/16 13:26:00 CDTNotes: (Same as: K-Dur 20) "Do Not Crush" With food and full glass of water Inactive 03/15/2016 [facility] cefepime 1 gm, Route: IVPB, Drug form: INJ, [id number], Dosing Weight 81.818, kg, (CrCl >/=50 ml/min), Start date: 03/14/16 23:00:00 CDT, Duration: 30 day, Stop date: 04/13/16 15:00:00 CDTNotes: (Same As: Maxipime) MEDICATION WASTE Product Size: 1000 mg Product Wasted: ___ mg No Longer Active 03/15/2016 [facility] insulin detemir 15 unit, 0.15 mL, Route: SUB-Q, Drug form: INJ, Daily, Dosing Weight 81.818, kg, Start date: 03/14/16 9:00:00 CDT, Duration: 30 day, Stop date: 04/12/16 9:00:00 CDTNotes: Same as Levemir Do not hold insulin without contacting prescriber WASTE: F/P - Black; E - [employer] Trash Bin "single patient use only" No Longer Active 03/14/2016 [facility] Magnesium Sulfate 2 gm, 50 mL, Route: IVPB, Drug form: INJ, ONCE, Dosing Weight 81.818, kg, Start date: 03/14/16 5:36:00 CDT, Duration: 2 hr, Stop date: 03/14/16 5:36:00 CDTNotes: WASTE: F/P - Sink; E - [employer] Trash Bin Inactive 03/14/2016 [facility] Monobasic potassium phosphate 155 MG / Sodium Phosphate, Monobasic 350 MG Oral Tablet 2 tab, Route: PO, Drug Form: PDR/REC, Dosing Weight 81.818, kg, ONCE, Start date: 03/14/16 5:36:00 CDT, Stop date: 03/14/16 5:36:00 CDTNotes: (Same as: Neutra-Phos) Each 1.25 gm pkt has 250mg phosphorous. Mix w/2.5oz water and stir. Inactive 03/14/2016 [facility] Insulin, Aspart, Human 8 unit, 0.08 mL, Route: SUB-Q, Drug form: SOLN, TID-Before Meals, Dosing Weight 81.818, kg, PRN Blood Glucose Results, Start date: 03/14/16 2:12:00 CDT, Duration: 30 day, Stop date: 04/13/16 2:11:00 CDTNotes: Roll in palms of hands gently; Do not shake vigorously. (Same as: NovoLOG) "single patient use only" WASTE: F/P - Black; E - [employer] Trash Bin Stable for 28 days at room temperature. Expires in days from Date No Longer Active 03/14/2016 [facility] Dextrose 50% Syringe 25 gm, 50 mL, Route: IVP, Drug Form: INJ, Dosing Weight 81.818, kg, PRN, PRN Blood Glucose Results, Start date: 03/14/16 2:12:00 CDT, Duration: 30 day, Stop date: 04/13/16 2:11:00 CDT No Longer Active 03/14/2016 [facility] Glucagon 1 mg, Route: IM, Drug form: PDR/INJ, PRN, Dosing Weight 81.818, kg, PRN Blood Glucose Results, Start date: 03/14/16 2:12:00 CDT, Duration: 30 day, Stop date: 04/13/16 2:11:00 CDT No Longer Active 03/14/2016 [facility] Esomeprazole 40 mg, PO, Daily, 0 Refill(s) Active 03/14/2016 [facility] ranitidine 300 mg oral tablet 300 mg=1 tab, PO, Bedtime, 0 Refill(s) Active 03/14/2016 [facility] ferrous sulfate 325 mg, PO, TID, 0 Refill(s) Active 03/14/2016 [facility] Metformin hydrochloride 1000 MG Oral Tablet 1,000 mg=1 tab, PO, BID, 0 Refill(s) Active 03/14/2016 [facility] Calcium 600 +D oral tablet 1 tab, PO, Daily, 0 Refill(s) Active 03/14/2016 [facility] Simvastatin 20 mg, 1 tab, Route: PO, Drug form: TAB, Bedtime, Dosing Weight 81.818, kg, Priority: NOW, Start date: 03/14/16 2:11:00 CDT, Duration: 30 day, Stop date: 04/12/16 21:00:00 CDTNotes: (Same as: Zocor) No Longer Active 03/14/2016 [facility] tolterodine 2 mg, PO, BID, 0 Refill(s) Active 03/14/2016 [facility] gabapentin 100 MG Oral Capsule 200 mg=2 cap, PO, TID, 0 Refill(s) Active 03/14/2016 [facility] Aspirin 325 MG Enteric Coated Tablet 325 mg, 1 tab, Route: PO, Drug form: ECTAB, Daily, Dosing Weight 81.818, kg, Priority: NOW, Start date: 03/14/16 2:10:00 CDT, Duration: 30 day, Stop date: 04/12/16 9:00:00 CDTNotes: (Do Not Crush) Do not crush or chew. No Longer Active 03/14/2016 [facility] Enoxaparin 40 mg, 0.4 mL, Route: SUB-Q, Drug form: INJ, [id number], Dosing Weight 81.818, kg, Start date: 03/14/16 2:00:00 CDT, Duration: 30 day, Stop date: 04/12/16 2:00:00 CDTNotes: (Same as: Lovenox) No Longer Active 03/14/2016 [facility] Sodium Chloride 0.154 MEQ/ML Injectable Solution 1,000 mL, Rate: 125 ml/hr, Infuse over: 8 hr, Route: IV, Dosing Weight 81.818 kg, Total Volume: 1,000, Start date: 03/14/16 1:44:00 CDT, Duration: 30 day, Stop date: 04/13/16 1:43:00 CDT No Longer Active 03/14/2016 [facility] Saline Flush 0.9% 10 ml, Route: IVP, Drug Form: INJ, Dosing Weight 81.818, kg, PRN, PRN Line Flush, Start date: 03/14/16 1:44:00 CDT, Duration: 30 day, Stop date: 04/13/16 1:43:00 CDTNotes: Same as: BD Posiflush Sterile No Longer Active 03/14/2016 [facility] Acetaminophen 325 MG / Hydrocodone Bitartrate 5 MG Oral Tablet 1 tab, Route: PO, Drug Form: TAB, Dosing Weight 81.818, kg, Q4H, PRN Pain Score 4-6, Start date: 03/14/16 1:44:00 CDT, Duration: 30 day, Stop date: 04/13/16 1:43:00 CDTNotes: (Same as: [place] 325/5) Do not exceed 4gm/day of acetaminophen. No Longer Active 03/14/2016 [facility] Acetaminophen 650 mg, 2 tab, Route: PO, Drug form: TAB, Q4H, Dosing Weight 81.818, kg, PRN Pain 1-3/Temp > 100.4 F, Start date: 03/14/16 1:44:00 CDT, Duration: 30 day, Stop date: 04/13/16 1:43:00 CDTNotes: Do not exceed 4 gm/day. (Same as: Tylenol) No Longer Active 03/14/2016 [facility] Ondansetron 4 mg, 2 mL, Route: IVP, Drug form: INJ, Q6H, Dosing Weight 81.818, kg, PRN Nausea & Vomiting, Start date: 03/14/16 1:44:00 CDT, Duration: 30 day, Stop date: 04/13/16 1:43:00 CDTNotes: (Same as: Barron) MEDICATION WASTE Product Size: 4 mg Product Wasted: ___ mg No Longer Active 03/14/2016 [facility] Docusate 100 mg, 1 cap, Route: PO, Drug form: CAP, BID, Dosing Weight 81.818, kg, PRN Constipation, Start date: 03/14/16 1:44:00 CDT, Duration: 30 day, Stop date: 04/13/16 1:43:00 CDTNotes: (Same as: Colace) (Do Not Crush) No Longer Active 03/14/2016 [facility] Acetaminophen 650 mg, 2 tab, Route: PO, Drug form: TAB, Q4H, Dosing Weight 81.818, kg, PRN Pain 1-3/Temp > 100.4 F, Start date: 03/14/16 0:32:00 CDT, Duration: 30 day, Stop date: 04/13/16 0:31:00 CDTNotes: Do not exceed 4 gm/day. (Same as: Tylenol) Inactive 03/14/2016 [facility] Acetaminophen 325 MG / Hydrocodone Bitartrate 5 MG Oral Tablet 1 tab, Route: PO, Drug Form: TAB, Dosing Weight 81.818, kg, Q4H, PRN Pain Score 4-6, Start date: 03/14/16 0:32:00 CDT, Duration: 30 day, Stop date: 04/13/16 0:31:00 CDTNotes: (Same as: [place] 325/5) Do not exceed 4gm/day of acetaminophen. Inactive 03/14/2016 [facility] Ondansetron 4 mg, 2 mL, Route: IVP, Drug form: INJ, Q6H, Dosing Weight 81.818, kg, PRN Nausea & Vomiting, Start date: 03/14/16 0:32:00 CDT, Duration: 30 day, Stop date: 04/13/16 0:31:00 CDTNotes: (Same as: Zofran) MEDICATION WASTE Product Size: 4 mg Product Wasted: ___ mg Inactive 03/14/2016 [facility] Morphine 2 mg, 1 mL, Route: IVP, Drug form: INJ, Q4H, Dosing Weight 81.818, kg, PRN Pain Score 7-10, Start date: 03/14/16 0:32:00 CDT, Duration: 30 day, Stop date: 04/13/16 0:31:00 CDTNotes: (Same as:MORPhine Sulfate) Inactive 03/14/2016 [facility] Ceftriaxone 1 gm, Route: IVPB, Drug form: PDR/INJ, Daily, Dosing Weight 81.818, kg, Priority: STAT, Start date: 03/13/16 22:35:00 CDT, Duration: 30 day, Stop date: 04/12/16 9:00:00 CDTNotes: (Same As: Rocephin). U se with 100 mL NS and infuse over 30 min MEDICATION WASTE Product Size: 1000 mg Product Wasted: ___ mg No Longer Active 03/14/2016 [facility] Sodium Chloride 0.154 MEQ/ML Injectable Solution 1,000 mL, 1,000 ml/hr, Infuse Over: 1 hr, Route: IV, 1,000, Drug form: INJ, ONCE, Priority: STAT, Dosing Weight 81.818 kg, Start date: 03/13/16 18:49:00 CDT, Duration: 1 doses or times, Stop date: 03/13/16 18:49:00 CDT Inactive 03/13/2016 [facility] Carafate 1 g oral tablet 1 gm, 1 tab, PO, QID-Before Meals, 120 tab, Substitution Allowed PO Active [place] 08/14/2012 [facility] acetaminophen 975 mg, 30.45 mL, Route: PO, Drug form: LIQ, ONCE, Dosing Weight 75.455, kg, Priority: STAT, Start date: 05/19/12 9:37:00, Stop date: 05/19/12 9:37:00 PO No Longer Active Yo[place] 05/19/2012 [facility] Glucophage 1,000 mg, 2 tab, Route: PO, Drug form: TAB, BID, Start date: 05/24/11 8:00:00, Duration: 30 day, Stop date: 06/22/11 20:00:00 PO No Longer Active [facility] 05/24/2011 [facility] acetaminophen-hydrocodone 325 mg-7.5 mg oral tablet 2 tab, Route: PO, Drug Form: TAB, BID, Start date: 05/22/11 12:00:00, Stop date: 06/21/11 7:00:00 PO No Longer Active [facility] 05/22/2011 [facility] ferrous sulfate 325 mg, 1 tab, Route: PO, Drug form: ECTAB, BID-Meals, Start date: 05/21/11 8:00:00, Duration: 30 day, Stop date: 06/20/11 7:00:00 PO No Longer Active Marisol 05/21/2011 [facility] Senokot S 2 tab, Route: PO, Drug Form: TAB, Bedtime, Start date: 05/20/11 21:00:00, Duration: 30 day, Stop date: 06/18/11 21:00:00 PO No Longer Active [facility] 05/21/2011 [facility] Protonix 40 mg, 1 tab, Route: PO, Drug form: ECTAB, Before Dinner, Start date: 05/20/11 16:30:00, Duration: 30 day, Stop date: 06/18/11 16:30:00 PO No Longer Active [facility] 05/20/2011 [facility] aspirin 81 mg tablet, enteric coated 81 mg, 1 tab, Route: PO, Drug form: ECTAB, Daily, Start date: 05/20/11 8:00:00, Duration: 30 day, Stop date: 06/18/11 8:00:00 PO No Longer Active [facility] 05/20/2011 [facility] DiaBeta 10 mg, 2 tab, Route: PO, Drug form: TAB, Daily, Start date: 05/20/11 8:00:00, Duration: 30 day, Stop date: 06/18/11 8:00:00 PO No Longer Active [facility] 05/20/2011 [facility] Actos 30 mg, 1 tab, Route: PO, Drug form: TAB, Daily, Start date: 05/20/11 8:00:00, Duration: 30 day, Stop date: 06/18/11 8:00:00 PO No Longer Active [facility] 05/20/2011 [facility] Glucophage 1,000 mg, 2 tab, Route: PO, Drug form: TAB, Daily, Start date: 05/20/11 8:00:00, Duration: 30 day, Stop date: 06/18/11 8:00:00 PO No Longer Active [facility] 05/20/2011 [facility] Neurontin 300 mg, 1 cap, Route: PO, Drug form: CAP, TID, Start date: 05/20/11 8:00:00, Duration: 30 day, Stop date: 06/18/11 17:00:00 PO No Longer Active [facility] 05/20/2011 [facility] TriCor 145 mg, 1 tab, Route: PO, Drug form: TAB, Daily, Start date: 05/20/11 8:00:00, Duration: 30 day, Stop date: 06/18/11 8:00:00 PO No Longer Active [facility] 05/20/2011 [facility] Lovenox 40 mg, 0.4 mL, Route: SUB-Q, Drug form: INJ, [id number], Start date: 05/20/11 8:00:00, Duration: 30 day, Stop date: 06/18/11 8:00:00 SUB-Q No Longer Active [facility] 05/20/2011 [facility] docusate sodium 100 mg oral capsule 100 mg, 1 cap, Route: PO, Drug form: CAP, Daily, Start date: 05/20/11 8:00:00, Duration: 30 day, Stop date: 06/18/11 8:00:00 PO No Longer Active [facility] 05/20/2011 [facility] ketorolac 30 mg/mL injectable solution 15 mg, 0.5 mL, Route: IV, Drug form: INJ, Q6H, Start date: 05/20/11 0:00:00, Stop date: 05/22/11 6:00:00 IV No Longer Active [facility] 05/20/2011 [facility] bimatoprost 0.03% ophthalmic solution 1 drp, Route: BOTH EYES, Bedtime, Drug form: SOLN, Start date: 05/19/11 22:00:00, Duration: 30 day, Stop date: 06/18/11 21:00:00 BOTH EYES No Longer Active [facility] 05/20/2011 [facility] Zocor 10 mg, 1 tab, Route: PO, Drug form: TAB, Bedtime, Start date: 05/19/11 22:00:00, Duration: 30 day, Stop date: 06/18/11 21:00:00 PO No Longer Active [facility] 05/20/2011 [facility] Restoril 15 mg, 1 cap, Route: PO, Drug form: CAP, Bedtime, PRN Sleep, Start date: 05/19/11 21:52:00, Duration: 30 day, Stop date: 06/18/11 21:51:00 PO No Longer Active [facility] 05/20/2011 [facility] Zofran ODT 4 mg, 1 tab, Route: SL, Drug form: TABDIS, Q6H, PRN Nausea, Start date: 05/19/11 21:51:00, Duration: 30 day, Stop date: 06/18/11 21:50:00 SL No Longer Active [facility] 05/20/2011 [facility] Benadryl 25 mg, 0.5 mL, Route: IV, Drug form: INJ, Q6H, PRN Itching, Start date: 05/19/11 21:50:00, Duration: 30 day, Stop date: 06/18/11 21:49:00 IV No Longer Active [facility] 05/20/2011 [facility] acetaminophen-hydrocodone 325 mg-7.5 mg oral tablet 2 tab, Route: PO, Drug Form: TAB, Q4H, PRN Pain Score 4-6, Start date: 05/19/11 21:49:00, Duration: 30 day, Stop date: 06/18/11 21:48:00 PO No Longer Active [facility] 05/20/2011 [facility] acetaminophen-hydrocodone 325 mg-7.5 mg oral tablet 1 tab, Route: PO, Drug Form: TAB, Q4H, PRN Pain Score 4-6, Start date: 05/19/11 21:48:00, Duration: 30 day, Stop date: 06/18/11 21:47:00 PO No Longer Active [facility] 05/20/2011 [facility] Dextrose 50% in Water IV 50 mL, Route: IVP, PRN, Blood Glucose Results, Start date: 05/19/11 21:47:00, Duration: 30 day, Stop date: 06/18/11 21:46:00 IVP No Longer Active [facility] 05/20/2011 [facility] NovoLog FlexPen 15 unit, 0.15 mL, Route: SUB-Q, Drug form: SOLN, Sliding Scale, PRN Blood Glucose Results, Start date: 05/19/11 21:46:00, Duration: 30 day, Stop date: 06/18/11 21:45:00 SUB-Q No Longer Active [facility] 05/20/2011 [facility] Tylenol 650 mg, 2 tab, Route: PO, Drug form: TAB, Q4H, PRN Pain, Start date: 05/19/11 21:45:00, Duration: 30 day, Stop date: 06/18/11 21:44:00 PO No Longer Active [facility] 05/20/2011 [facility] Maalox Plus 30 mL, Route: PO, Drug Form: SUSP, Q4H, PRN Indigestion, Start date: 05/19/11 21:45:00, Duration: 30 day, Stop date: 06/18/11 21:44:00 PO No Longer Active [facility] 05/20/2011 [facility] Dulcolax Laxative 10 mg, 1 supp, Route: NJ, Drug form: SUPP, PRN, PRN Constipation, Start date: 05/19/11 21:45:00, Duration: 30 day, Stop date: 06/18/11 21:44:00 NJ No Longer Active [facility] 05/20/2011 [facility] Milk of Magnesia 30 mL, Route: PO, Drug Form: SUSP, Bedtime, PRN Constipation, Start date: 05/19/11 21:45:00, Duration: 30 day, Stop date: 06/18/11 21:44:00 PO No Longer Active Michelle Fair 05/20/2011 [facility] Milk of Magnesia 30 mL, Route: PO, Drug Form: SUSP, ONCE, Start date: 05/18/11 16:00:00, Stop date: 05/18/11 16:00:00 PO No Longer Active Anish 05/18/2011 [facility] ketorolac 30 mg/mL injectable solution 30 mg, 1 mL, Route: IV, Drug form: INJ, ONCE, Start date: 05/18/11 11:00:00, Stop date: 05/18/11 11:00:00 IV No Longer Active Anish 05/18/2011 [facility] ketorolac 30 mg/mL injectable solution 15 mg, 0.5 mL, Route: IV, Drug form: INJ, Q6H, Start date: 05/17/11 18:00:00, Stop date: 05/19/11 12:00:00 IV No Longer Active Anish 05/17/2011 [facility] ketorolac 30 mg/mL injectable solution 30 mg, 1 mL, Route: IM, Drug form: INJ, ONCE, Start date: 05/17/11 14:00:00, Stop date: 05/17/11 14:00:00 IM No Longer Active Anish 05/17/2011 [facility] TriCor 145 mg, 1 tab, Route: PO, Drug form: TAB, Daily, Start date: 05/17/11 9:00:00, Duration: 30 day, Stop date: 06/15/11 9:00:00 PO No Longer Active Anish 05/17/2011 [facility] Actos 30 mg, 1 tab, Route: PO, Drug form: TAB, Daily, Start date: 05/17/11 9:00:00, Duration: 30 day, Stop date: 06/15/11 9:00:00 PO No Longer Active Anish 05/17/2011 [facility] aspirin 81 mg tablet, enteric coated 81 mg, 1 tab, Route: PO, Drug form: ECTAB, Daily, Start date: 05/17/11 9:00:00, Duration: 30 day, Stop date: 06/15/11 9:00:00 PO No Longer Active Anish 05/17/2011 [facility] Glucophage 1,000 mg, 2 tab, Route: PO, Drug form: TAB, Daily, Start date: 05/17/11 9:00:00, Duration: 30 day, Stop date: 06/15/11 9:00:00 PO No Longer Active [place] 05/17/2011 [facility] Lovenox 40 mg, 0.4 mL, Route: SUB-Q, Drug form: INJ, Daily, Start date: 05/17/11 8:00:00, Duration: 30 day, Stop date: 06/15/11 8:00:00 SUB-Q No Longer Active [facility] 05/17/2011 [facility] Senokot S 2 tab, Route: PO, Drug Form: TAB, Bedtime, Start date: 05/16/11 21:00:00, Duration: 30 day, Stop date: 06/14/11 21:00:00 PO No Longer Active [facility] 05/17/2011 [facility] Zocor 10 mg, 1 tab, Route: PO, Drug form: TAB, Bedtime, Start date: 05/16/11 21:00:00, Duration: 30 day, Stop date: 06/14/11 21:00:00 PO No Longer Active [facility] 05/17/2011 [facility] bimatoprost 0.03% ophthalmic solution 1 drp, Route: BOTH EYES, Bedtime, Drug form: SOLN, Start date: 05/16/11 21:00:00, Duration: 30 day, Stop date: 06/14/11 21:00:00 BOTH EYES No Longer Active [place] 05/17/2011 [facility] Cyklokapron 1,000 mg, 10 mL, Route: IV, Drug form: INJ, ONCE, Start date: 05/16/11 20:00:00, Stop date: 05/16/11 20:00:00 IV No Longer Active [place] 05/17/2011 [facility] docusate sodium 100 mg oral capsule 100 mg, 1 cap, Route: PO, Drug form: CAP, BID, Start date: 05/16/11 17:00:00, Duration: 30 day, Stop date: 06/15/11 9:00:00 PO No Longer Active [place] 05/16/2011 [facility] Neurontin 300 mg, 1 cap, Route: PO, Drug form: CAP, TID, Start date: 05/16/11 17:00:00, Duration: 30 day, Stop date: 06/15/11 13:00:00 PO No Longer Active [place] 05/16/2011 [facility] Protonix 40 mg + BD Posiflush SF 5 mL Route: IVP, Before Dinner, Start date: 05/16/11 16:30:00, Duration: 30 day, Stop date: 06/14/11 16:30:00 IVP No Longer Active [place] 05/16/2011 [facility] Protonix 40 mg, 1 tab, Route: PO, Drug form: ECTAB, Before Dinner, Start date: 05/16/11 16:30:00, Duration: 30 day, Stop date: 06/14/11 16:30:00 PO No Longer Active [place] 05/16/2011 [facility] cefazolin 1 gm, Route: IVPB, [id number], Start date: 05/16/11 16:00:00, Duration: 3 doses or times, Stop date: 05/17/11 8:00:00 IVPB No Longer Active [place] 05/16/2011 [facility] Dextrose 50% in Water IV 25 mL, Route: IVP, PRN, Blood Glucose Results, Start date: 05/16/11 15:02:00, Duration: 30 day, Stop date: 06/15/11 15:01:00 IVP No Longer Active [place] 05/16/2011 [facility] NovoLog FlexPen 15 unit, 0.15 mL, Route: SUB-Q, Drug form: SOLN, Sliding Scale, PRN Blood Glucose Results, Start date: 05/16/11 15:01:00, Duration: 30 day, Stop date: 06/15/11 15:00:00 SUB-Q No Longer Active [place] 05/16/2011 [facility] NovoLog FlexPen 6 unit, 0.06 mL, Route: SUB-Q, Drug form: SOLN, Sliding Scale, PRN Blood Glucose Results, Start date: 05/16/11 15:00:00, Duration: 30 day, Stop date: 06/15/11 14:59:00 SUB-Q No Longer Active [place] 05/16/2011 [facility] NovoLog FlexPen 4 unit, 0.04 mL, Route: SUB-Q, Drug form: SOLN, Sliding Scale, PRN Blood Glucose Results, Start date: 05/16/11 14:59:00, Duration: 30 day, Stop date: 06/15/11 14:58:00 SUB-Q No Longer Active [place] 05/16/2011 [facility] Lactated Ringers Injection IV 1,000 mL 1,000 mL, Rate: 80 ml/hr, Infuse over: 12.5 hr, Route: IV, Total Volume: 1,000, Start date: 05/16/11 14:34:00, Duration: 30 day, Stop date: 06/15/11 14:33:00 IV No Longer Active [place] 05/16/2011 [facility] Zofran 4 mg, 1 tab, Route: PO, Drug form: TAB, Q6H, PRN Nausea & Vomiting, Start date: 05/16/11 14:19:00, Duration: 30 day, Stop date: 06/15/11 14:18:00 PO No Longer Active [place] 05/16/2011 [facility] Tylenol 650 mg, 1 supp, Route: NJ, Drug form: SUPP, Q4H, PRN Pain Score 1-3, Start date: 05/16/11 14:18:00, Duration: 30 day, Stop date: 06/15/11 14:17:00 NJ No Longer Active [place] 05/16/2011 [facility] Zofran 4 mg, 1 tab, Route: PO, Drug form: TAB, Q6H, PRN Nausea, Start date: 05/16/11 14:17:00, Duration: 30 day, Stop date: 06/15/11 14:16:00 PO No Longer Active [place] 05/16/2011 [facility] Cepastat 1 lozenge, Route: MUCOUS MEM, PRN, Drug form: JERONIMO PRN Sore Throat, Start date: 05/16/11 14:14:00, Duration: 30 day, Stop date: 06/15/11 14:13:00 MUCOUS MEM No Longer Active [place] 05/16/2011 [facility] Dulcolax Laxative 10 mg, 1 supp, Route: NJ, Drug form: SUPP, Daily, PRN Constipation, Start date: 05/16/11 14:12:00, Duration: 30 day, Stop date: 06/15/11 14:11:00 NJ No Longer Active [place] 05/16/2011 [facility] Milk of Magnesia 30 mL, Route: PO, Drug Form: SUSP, Q12H, PRN Constipation, Start date: 05/16/11 14:10:00, Duration: 30 day, Stop date: 06/15/11 14:09:00 PO No Longer Active [place] 05/16/2011 [facility] Maalox Plus 30 mL, Route: PO, Drug Form: SUSP, Q4H, PRN Indigestion, Start date: 05/16/11 14:10:00, Duration: 30 day, Stop date: 06/15/11 14:09:00 PO No Longer Active [place] 05/16/2011 [facility] Restoril 15 mg, 1 cap, Route: PO, Drug form: CAP, Bedtime, PRN Sleep, Start date: 05/16/11 14:09:00, Duration: 30 day, Stop date: 06/15/11 14:08:00 PO No Longer Active [place] 05/16/2011 [facility] Restoril 30 mg, 1 cap, Route: PO, Drug form: CAP, Bedtime, PRN Sleep, Start date: 05/16/11 14:08:00, Duration: 30 day, Stop date: 06/15/11 14:07:00 PO No Longer Active [place] 05/16/2011 [facility] Tylenol 650 mg, 2 tab, Route: PO, Drug form: TAB, Q4H, PRN Pain Score 1-3, Start date: 05/16/11 14:05:00, Duration: 30 day, Stop date: 06/15/11 14:04:00 PO No Longer Active [place] 05/16/2011 [facility] Benadryl 25 mg, 0.5 mL, Route: IV, Drug form: INJ, Q6H, PRN Itching, Start date: 05/16/11 14:03:00, Duration: 30 day, Stop date: 06/15/11 14:02:00 IV No Longer Active [place] 05/16/2011 [facility] Zofran 4 mg, 2 mL, Route: IVP, Drug form: INJ, Q6H, PRN Nausea, Start date: 05/16/11 14:01:00, Duration: 30 day, Stop date: 06/15/11 14:00:00 IVP No Longer Active [place] 05/16/2011 [facility] acetaminophen-hydrocodone 325 mg-7.5 mg oral tablet 2 tab, Route: PO, Drug Form: TAB, Q4H, PRN Pain Score 4-6, Start date: 05/16/11 14:00:00, Duration: 30 day, Stop date: 06/15/11 13:59:00 PO No Longer Active [place] 05/16/2011 [facility] DiaBeta 10 mg, 2 tab, Route: PO, Drug form: TAB, Daily, Start date: 05/16/11 14:00:00, Duration: 30 day, Stop date: 06/15/11 9:00:00 PO No Longer Active [place] 05/16/2011 [facility] pneumococcal 23-valent vaccine 0.5 ml, Route: IM, Drug Form: INJ, ONCALL, Start date: 05/16/11 13:57:09, Stop date: 06/15/11 13:52:09 IM No Longer Active [facility] 05/16/2011 [facility] morphine Sulfate 4 mg, 1 mL, Route: IVP, Drug form: INJ, Q2H, PRN Breakthrough Pain, Start date: 05/16/11 13:54:00, Duration: 30 day, Stop date: 06/15/11 13:53:00 IVP No Longer Active [place] 05/16/2011 [facility] morphine Sulfate 2 mg, Route: IVP, ONCE, Start date: 05/16/11 12:05:00, Stop date: 05/16/11 12:05:00 IVP No Longer Active [facility] 05/16/2011 [facility] ketorolac 15 mg, Route: IVP, ONCE, Start date: 05/16/11 12:04:00, Stop date: 05/16/11 12:04:00 IVP No Longer Active [facility] 05/16/2011 [facility] morphine Sulfate 2 mg, 1 mL, Route: IVP, Drug form: INJ, ONCE, Start date: 05/16/11 11:40:00, Stop date: 05/16/11 11:40:00 IVP Active [facility] 05/16/2011 [facility] morphine Sulfate 2 mg, Route: IVP, ONCE, Start date: 05/16/11 11:38:00, Stop date: 05/16/11 11:38:00 IVP No Longer Active [place] 05/16/2011 [facility] morphine Sulfate 2 mg, Route: IVP, ONCE, Start date: 05/16/11 11:25:00, Stop date: 05/16/11 11:25:00 IVP No Longer Active [facility] 05/16/2011 [facility] Cyklokapron 1,000 mg, 10 mL, Route: IV, Drug form: INJ, ONCE, Start date: 05/16/11 7:16:00, Stop date: 05/16/11 7:16:00 IV Active [place] 05/16/2011 [facility] Vitamin D (Ergocalciferol) 1 capsule Orally Active [address] [facility] Cardiology Cons Gabapentin 1 capsule Orally Active 300 MG Orally Once a day [facility] Cardiology Cons Atorvastatin Calcium 1 tablet Orally Active 40 MG Orally Once a day [facility] Cardiology Cons B Complete not defined Orally Active - Orally [facility] Cardiology Cons Janumet XR 1 tablet with evening meal Orally Active 50-1000 MG Orally twice a day [facility] Cons Glimepiride 1 tablet with breakfast or the first main meal of the day Orally Active 4 MG Orally Twice a day [facility] Cardiology Cons Pantoprazole Sodium 1 tablet Orally Active 40 MG Orally Once a day [facility] Cardiology Cons Allergies, Adverse Reactions, Alerts Substance Category Reaction Severity Reaction type Status Date Reported Comments Source N.K.D.A. Adverse Reaction Info Not Available Adverse Reaction Active 02/20/2017 Cardiology Cons Immunizations Immunization Date Given Site Status Last Updated Comments Source pneumococcal 13-valent vaccine 03/14/2017 Not Given [facility] pneumococcal 23-valent vaccine 05/18/2011 jose l Saez [facility] pneumococcal 23-valent vaccine 05/18/2011 Left deltoid completed Se [facility] Results Order Name Results Value Reference Range Date Interpretation Comments Source MOLECULAR DIAGNOSTIC C difficile DNA Negative (03/26/17 10:03 AM) Negative 03/26/2017 [facility] URINE AND STOOL Fecal Leukocyte None Seen (03/26/17 9:22 AM) 03/26/2017 [facility] CHEM PANEL Phosphorus 2.7 mg/dL 2.5 - 4.5 03/25/2017 [facility] CHEM PANEL Magnesium Lvl 1.4 mg/dL 1.8 - 2.4 03/25/2017 [facility] CHEM PANEL eGFR 43 mL/min/1.73m2 03/25/2017 Result Comment: The eGFR is calculated using the CKD-EPI formula. In most young, healthy individuals the eGFR will be >90 mL/min/1.73m2. The eGFR declines with age. An eGFR of 60-89 may be normal in some populations, particularly the elderly, for whom the CKD-EPI formula has not been extensively validated. Use of the eGFR is not recommended in the following populations: Individuals with unstable creatinine concentrations, including patients and those with serious co-morbid conditions. Patients with extremes in muscle mass or diet. The data above are obtained from the National Kidney Disease Education Program (NKDEP) which additionally recommends that when the eGFR is used in patients with extremes of body mass index for purposes of drug dosing, the eGFR should be multiplied by the estimated BMI. [facility] CHEM PANEL Potassium Lvl 3.7 meq/L 3.5 - 5.1 03/25/2017 [facility] CHEM PANEL Creatinine Lvl 1.26 mg/dL 0.50 - 1.40 03/25/2017 [facility] CHEM PANEL Chloride Lvl 109 meq/L 95 - 109 03/25/2017 [facility] CHEM PANEL AGAP 13.7 meq/L 10.0 - 20.0 03/25/2017 [facility] CHEM PANEL Calcium Lvl 7.4 mg/dL 8.5 - 10.5 03/25/2017 [facility] CHEM PANEL BUN 20 mg/dL 7 - 22 03/25/2017 [facility] CHEM PANEL Glucose Lvl 90 mg/dL 70 - 99 03/25/2017 [facility] CHEM PANEL Sodium Lvl 141 meq/L 135 - 145 03/25/2017 [facility] CHEM PANEL CO2 22 meq/L 24 - 32 03/25/2017 [facility] HEMATOLOGY MPV 8.3 fL 7.4 - 10.4 03/25/2017 [facility] HEMATOLOGY RDW 13.1 % 11.5 - 14.5 03/25/2017 [facility] HEMATOLOGY Platelet 365 K/CMM 133 - 450 03/25/2017 [facility] HEMATOLOGY MCV 97.9 fL 80.0 - 98.0 03/25/2017 [facility] HEMATOLOGY Hct 31.0 % 36.0 - 48.0 03/25/2017 [facility] HEMATOLOGY MCHC 34.9 g/dL 32.0 - 36.0 03/25/2017 [facility] HEMATOLOGY RBC 3.17 M/CMM 4.20 - 5.40 03/25/2017 [facility] HEMATOLOGY Hgb 10.8 g/dL 12.0 - 16.0 03/25/2017 [facility] HEMATOLOGY MCH 34.1 pg 27.0 - 31.0 03/25/2017 [facility] HEMATOLOGY WBC 10.7 K/CMM 3.7 - 10.4 03/25/2017 [facility] HEMATOLOGY Monocytes # 0.7 K/CMM 0.0 - 0.8 03/25/2017 [facility] HEMATOLOGY Eosinophils # 0.3 K/CMM 0.0 - 0.5 03/25/2017 [facility] HEMATOLOGY Basophils # 0.1 K/CMM 0.0 - 0.2 03/25/2017 [facility] HEMATOLOGY Basophils 0.5 % 0.0 - 1.0 03/25/2017 [facility] HEMATOLOGY Segs-Bands # 7.1 K/CMM 1.5 - 8.1 03/25/2017 [facility] HEMATOLOGY Eosinophils 2.6 % 0.0 - 4.0 03/25/2017 [facility] HEMATOLOGY Lymphocytes # 2.5 K/CMM 1.0 - 5.5 03/25/2017 [facility] HEMATOLOGY Segs 66.3 % 45.0 - 75.0 03/25/2017 [facility] HEMATOLOGY Monocytes 6.9 % 2.0 - 12.0 03/25/2017 [facility] HEMATOLOGY Lymphocytes 23.7 % 20.0 - 40.0 03/25/2017 [facility] CHEM PANEL Lipase Lvl 472 unit/L 73 - 393 03/25/2017 [facility] CHEM PANEL ALT 40 unit/L 0 - 65 03/25/2017 [facility] CHEM PANEL CO2 21 meq/L 24 - 32 03/25/2017 [facility] CHEM PANEL Chloride Lvl 104 meq/L 95 - 109 03/25/2017 [facility] CHEM PANEL Total Protein 8.2 g/dL 6.4 - 8.4 03/25/2017 [facility] CHEM PANEL Calcium Lvl 9.4 mg/dL 8.5 - 10.5 03/25/2017 [facility] CHEM PANEL Bili Total 0.4 mg/dL 0.2 - 1.3 03/25/2017 [facility] CHEM PANEL Alk Phos 84 unit/L 39 - 136 03/25/2017 [facility] CHEM PANEL AST 25 unit/L 0 - 37 03/25/2017 [facility] CHEM PANEL Potassium Lvl 4.0 meq/L 3.5 - 5.1 03/25/2017 [facility] CHEM PANEL BUN 26 mg/dL 7 - 22 03/25/2017 [facility] CHEM PANEL Sodium Lvl 138 meq/L 135 - 145 03/25/2017 [facility] CHEM PANEL Creatinine Lvl 1.79 mg/dL 0.50 - 1.40 03/25/2017 [facility] CHEM PANEL Albumin Lvl 3.2 g/dL 3.5 - 5.0 03/25/2017 [facility] CHEM PANEL eGFR 28 mL/min/1.73m2 03/25/2017 Result Comment: The eGFR is calculated using the CKD-EPI formula. In most young, healthy individuals the eGFR will be >90 mL/min/1.73m2. The eGFR declines with age. An eGFR of 60-89 may be normal in some populations, particularly the elderly, for whom the CKD-EPI formula has not been extensively validated. Use of the eGFR is not recommended in the following populations: Individuals with unstable creatinine concentrations, including patients and those with serious co-morbid conditions. Patients with extremes in muscle mass or diet. The data above are obtained from the National Kidney Disease Education Program (NKDEP) which additionally recommends that when the eGFR is used in patients with extremes of body mass index for purposes of drug dosing, the eGFR should be multiplied by the estimated BMI. [facility] CHEM PANEL Glucose Lvl 142 mg/dL 70 - 99 03/25/2017 [facility] CHEM PANEL AGAP 17.0 meq/L 10.0 - 20.0 03/25/2017 [facility] CHEM PANEL Globulin 5.0 g/dL 2.7 - 4.2 03/25/2017 [facility] CHEM PANEL B/C Ratio 15 6 - 25 03/25/2017 [facility] CHEM PANEL A/G Ratio 0.6 0.7 - 1.6 03/25/2017 [facility] HEMATOLOGY Basophils # 0.1 K/CMM 0.0 - 0.2 03/25/2017 [facility] HEMATOLOGY Eosinophils # 0.2 K/CMM 0.0 - 0.5 03/25/2017 [facility] HEMATOLOGY Monocytes # 0.7 K/CMM 0.0 - 0.8 03/25/2017 [facility] HEMATOLOGY Lymphocytes # 1.9 K/CMM 1.0 - 5.5 03/25/2017 [facility] HEMATOLOGY Segs-Bands # 10.2 K/CMM 1.5 - 8.1 03/25/2017 [facility] HEMATOLOGY Basophils 0.6 % 0.0 - 1.0 03/25/2017 [facility] HEMATOLOGY Eosinophils 1.5 % 0.0 - 4.0 03/25/2017 [facility] HEMATOLOGY Monocytes 5.4 % 2.0 - 12.0 03/25/2017 [facility] HEMATOLOGY Lymphocytes 14.7 % 20.0 - 40.0 03/25/2017 [facility] HEMATOLOGY Segs 77.8 % 45.0 - 75.0 03/25/2017 [facility] HEMATOLOGY MPV 8.5 fL 7.4 - 10.4 03/25/2017 [facility] HEMATOLOGY Platelet 427 K/CMM 133 - 450 03/25/2017 [facility] HEMATOLOGY RDW 12.9 % 11.5 - 14.5 03/25/2017 [facility] HEMATOLOGY MCHC 34.0 g/dL 32.0 - 36.0 03/25/2017 [facility] HEMATOLOGY MCH 33.1 pg 27.0 - 31.0 03/25/2017 [facility] HEMATOLOGY MCV 97.6 fL 80.0 - 98.0 03/25/2017 [facility] HEMATOLOGY Hct 36.9 % 36.0 - 48.0 03/25/2017 [facility] HEMATOLOGY Hgb 12.5 g/dL 12.0 - 16.0 03/25/2017 [facility] HEMATOLOGY RBC 3.78 M/CMM 4.20 - 5.40 03/25/2017 [facility] HEMATOLOGY WBC 13.1 K/CMM 3.7 - 10.4 03/25/2017 [facility] URINE AND STOOL UA Bacteria Moderate /HPF None Seen /HPF 03/25/2017 [facility] URINE AND STOOL UA WBC 11-20 /HPF None Seen /HPF 03/25/2017 [facility] URINE AND STOOL UA Mucus Few /LPF None Seen /LPF 03/25/2017 [facility] URINE AND STOOL UA Color Yellow *NA* (03/24/17 9:32 PM) Yellow 03/25/2017 [facility] URINE AND STOOL UA Spec Grav 1.025 <=1.030 03/25/2017 [facility] URINE AND STOOL UA Turbidity Slight Cloudy (03/24/17 9:32 PM) Clear 03/25/2017 [facility] URINE AND STOOL UA Protein 100 mg/dL Negative mg/dL 03/25/2017 [facility] URINE AND STOOL UA pH 5.5 5.0 - 8.0 03/25/2017 [facility] URINE AND STOOL UA Ketones Trace *ABN* (03/24/17 9:32 PM) Negative 03/25/2017 [facility] URINE AND STOOL UA Glucose Negative (03/24/17 9:32 PM) Negative 03/25/2017 [facility] URINE AND STOOL UA Blood Trace *ABN* (03/24/17 9:32 PM) Negative 03/25/2017 [facility] URINE AND STOOL UA Bili Small 1 *ABN* (03/24/17 9:32 PM) Negative 03/25/2017 Result Comment: Interpret positive bilirubin results with caution. Confirmatory testing not possible due to the unavailability of reagent. Correlation with serum chemistry results recommended. [facility] URINE AND STOOL UA Urobilinogen 0.2 EU/dL 0.1 - 1.0 03/25/2017 [facility] URINE AND STOOL UA Nitrite Negative (03/24/17 9:32 PM) Negative 03/25/2017 [facility] URINE AND STOOL Micro? Performed (03/24/17 9:32 PM) 03/25/2017 [facility] URINE AND STOOL UA RBC 0-2 /HPF 0 - 2 03/25/2017 [facility] URINE AND STOOL UA Sq Epi Moderate /LPF Few /LPF 03/25/2017 [facility] URINE AND STOOL UA Leuk Est Moderate *ABN* (03/24/17 9:32 PM) Negative 03/25/2017 [facility] Abdomen/Pelvis wo IV contrast CT Abdomen/Pelvis wo IV contrast CT CT ABD PELVIS W/O Study: CT of the abdomen and pelvis without intravenous contrast History: Nausea and vomiting. Comments: CT of the abdomen and pelvis was obtained utilizing multiple axial images from the lung bases to the ishial tuberosities. Intravenous contrast was not given. Lack of intravenous contrast limits evaluation of solid organ, vessels and certain processes. Total exam DLP is 1184 mgy-cm. Lower chest: The lung bases are free of pneumonia. The heart is normal in size. Abdomen: The unenhanced liver, spleen, pancreas and adrenal glands are within normal limits. Tiny high density lesion in the right kidney may be due to hemorrhagic cyst. Cholecystectomy The small and large bowel loops are nondilated. No evidence of appendicitis or diverticulitis. The urinary bladder is within normal limits. There is no free air or fluid collections. Degenerative changes in the spine Impression: Colonic diverticulosis without acute diverticulitis. 03/24/2017 - - Read by: Sonja Hazel MD Dictated Date/time: 03/24/17 23:57 Electronically Signed by: Sonja Hazel MD 03/25/17 00:05 FINAL REPORT [facility] CHEM PANEL Magnesium Lvl 1.3 mg/dL 1.8 - 2.4 03/14/2017 [facility] CHEM PANEL eGFR 77 mL/min/1.73m2 03/14/2017 Result Comment: The eGFR is calculated using the CKD-EPI formula. In most young, healthy individuals the eGFR will be >90 mL/min/1.73m2. The eGFR declines with age. An eGFR of 60-89 may be normal in some populations, particularly the elderly, for whom the CKD-EPI formula has not been extensively validated. Use of the eGFR is not recommended in the following populations: Individuals with unstable creatinine concentrations, including patients and those with serious co-morbid conditions. Patients with extremes in muscle mass or diet. The data above are obtained from the National Kidney Disease Education Program (NKDEP) which additionally recommends that when the eGFR is used in patients with extremes of body mass index for purposes of drug dosing, the eGFR should be multiplied by the estimated BMI. [facility] CHEM PANEL AGAP 12.4 meq/L 10.0 - 20.0 03/14/2017 [facility] CHEM PANEL Calcium Lvl 8.2 mg/dL 8.5 - 10.5 03/14/2017 [facility] CHEM PANEL BUN 5 mg/dL 7 - 22 03/14/2017 [facility] CHEM PANEL Sodium Lvl 140 meq/L 135 - 145 03/14/2017 [facility] CHEM PANEL Creatinine Lvl 0.78 mg/dL 0.50 - 1.40 03/14/2017 [facility] CHEM PANEL Potassium Lvl 3.4 meq/L 3.5 - 5.1 03/14/2017 [facility] CHEM PANEL Glucose Lvl 208 mg/dL 70 - 99 03/14/2017 [facility] CHEM PANEL Chloride Lvl 102 meq/L 95 - 109 03/14/2017 [facility] CHEM PANEL CO2 29 meq/L 24 - 32 03/14/2017 [facility] HEMATOLOGY Segs 85.9 % 45.0 - 75.0 03/14/2017 [facility] HEMATOLOGY Monocytes 5.7 % 2.0 - 12.0 03/14/2017 [facility] HEMATOLOGY Lymphocytes 7.5 % 20.0 - 40.0 03/14/2017 [facility] HEMATOLOGY Eosinophils 0.8 % 0.0 - 4.0 03/14/2017 [facility] HEMATOLOGY Basophils 0.1 % 0.0 - 1.0 03/14/2017 [facility] HEMATOLOGY Segs-Bands # 9.1 K/CMM 1.5 - 8.1 03/14/2017 [facility] HEMATOLOGY Monocytes # 0.6 K/CMM 0.0 - 0.8 03/14/2017 [facility] HEMATOLOGY Lymphocytes # 0.8 K/CMM 1.0 - 5.5 03/14/2017 [facility] HEMATOLOGY Macrocyte 1+ *ABN* (03/14/17 6:56 AM) None Seen 03/14/2017 [facility] HEMATOLOGY Eosinophils # 0.1 K/CMM 0.0 - 0.5 03/14/2017 [facility] HEMATOLOGY RBC 3.24 M/CMM 4.20 - 5.40 03/14/2017 [facility] HEMATOLOGY WBC 10.6 K/CMM 3.7 - 10.4 03/14/2017 [facility] HEMATOLOGY RDW 13.3 % 11.5 - 14.5 03/14/2017 [facility] HEMATOLOGY MCHC 35.2 g/dL 32.0 - 36.0 03/14/2017 [facility] HEMATOLOGY Platelet 114 K/CMM 133 - 450 03/14/2017 [facility] HEMATOLOGY MPV 8.5 fL 7.4 - 10.4 03/14/2017 [facility] HEMATOLOGY Hgb 11.4 g/dL 12.0 - 16.0 03/14/2017 [facility] HEMATOLOGY Hct 32.3 % 36.0 - 48.0 03/14/2017 [facility] HEMATOLOGY MCH 35.1 pg 27.0 - 31.0 03/14/2017 [facility] HEMATOLOGY MCV 99.7 fL 80.0 - 98.0 03/14/2017 [facility] CHEM PANEL A/G Ratio 1.0 0.7 - 1.6 03/13/2017 [facility] CHEM PANEL Globulin 3.1 g/dL 2.7 - 4.2 03/13/2017 [facility] CHEM PANEL AGAP 11.8 meq/L 10.0 - 20.0 03/13/2017 [facility] CHEM PANEL B/C Ratio 9 6 - 25 03/13/2017 [facility] PANEL eGFR 69 mL/min/1.73m2 03/13/2017 Result Comment: The eGFR is calculated using the CKD-EPI formula. In most young, healthy individuals the eGFR will be >90 mL/min/1.73m2. The eGFR declines with age. An eGFR of 60-89 may be normal in some populations, particularly the elderly, for whom the CKD-EPI formula has not been extensively validated. Use of the eGFR is not recommended in the following populations: Individuals with unstable creatinine concentrations, including patients and those with serious co-morbid conditions. Patients with extremes in muscle mass or diet. The data above are obtained from the National Kidney Disease Education Program (NKDEP) which additionally recommends that when the eGFR is used in patients with extremes of body mass index for purposes of drug dosing, the eGFR should be multiplied by the estimated BMI. [facility] CHEM PANEL Bili Total 0.6 mg/dL 0.2 - 1.3 03/13/2017 [facility] CHEM PANEL Alk Phos 58 unit/L 39 - 136 03/13/2017 [facility] CHEM PANEL ALT 443 unit/L 0 - 65 03/13/2017 [facility] CHEM PANEL AST 534 unit/L 0 - 37 03/13/2017 [facility] CHEM PANEL Potassium Lvl 3.8 meq/L 3.5 - 5.1 03/13/2017 [facility] CHEM PANEL Chloride Lvl 103 meq/L 95 - 109 03/13/2017 [facility] CHEM PANEL Sodium Lvl 140 meq/L 135 - 145 03/13/2017 [facility] CHEM PANEL Creatinine Lvl 0.85 mg/dL 0.50 - 1.40 03/13/2017 [facility] CHEM PANEL Total Protein 6.2 g/dL 6.4 - 8.4 03/13/2017 [facility] CHEM PANEL Albumin Lvl 3.1 g/dL 3.5 - 5.0 03/13/2017 [facility] CHEM PANEL Calcium Lvl 8.2 mg/dL 8.5 - 10.5 03/13/2017 [facility] CHEM PANEL CO2 29 meq/L 24 - 32 03/13/2017 [facility] CHEM PANEL BUN 8 mg/dL 7 - 22 03/13/2017 [facility] CHEM PANEL Glucose Lvl 159 mg/dL 70 - 99 03/13/2017 [facility] CHEM PANEL Magnesium Lvl 1.1 mg/dL 1.8 - 2.4 03/13/2017 [facility] HEMATOLOGY Segs-Bands # 5.9 K/CMM 1.5 - 8.1 03/13/2017 [facility] HEMATOLOGY Basophils 0.2 % 0.0 - 1.0 03/13/2017 [facility] HEMATOLOGY Eosinophils 0.7 % 0.0 - 4.0 03/13/2017 [facility] HEMATOLOGY Lymphocytes 12.1 % 20.0 - 40.0 03/13/2017 [facility] HEMATOLOGY Monocytes 7.2 % 2.0 - 12.0 03/13/2017 [facility] HEMATOLOGY Segs 79.8 % 45.0 - 75.0 03/13/2017 [facility] HEMATOLOGY Macrocyte 1+ *ABN* (03/13/17 7:05 AM) None Seen 03/13/2017 [facility] HEMATOLOGY Eosinophils # 0.1 K/CMM 0.0 - 0.5 03/13/2017 [facility] HEMATOLOGY Monocytes # 0.5 K/CMM 0.0 - 0.8 03/13/2017 [facility] HEMATOLOGY Lymphocytes # 0.9 K/CMM 1.0 - 5.5 03/13/2017 [facility] HEMATOLOGY RDW 13.3 % 11.5 - 14.5 03/13/2017 [facility] HEMATOLOGY MCHC 34.2 g/dL 32.0 - 36.0 03/13/2017 [facility] HEMATOLOGY MCH 34.4 pg 27.0 - 31.0 03/13/2017 [facility] HEMATOLOGY MPV 8.3 fL 7.4 - 10.4 03/13/2017 [facility] HEMATOLOGY Platelet 128 K/CMM 133 - 450 03/13/2017 [facility] HEMATOLOGY RBC 3.35 M/CMM 4.20 - 5.40 03/13/2017 [facility] HEMATOLOGY WBC 7.4 K/CMM 3.7 - 10.4 03/13/2017 [facility] HEMATOLOGY MCV 100.6 fL 80.0 - 98.0 03/13/2017 [facility] HEMATOLOGY Hct 33.7 % 36.0 - 48.0 03/13/2017 [facility] HEMATOLOGY Hgb 11.5 g/dL 12.0 - 16.0 03/13/2017 [facility] SPECIAL CHEMISTRY Hgb A1C 7.3 % <=5.6 % 03/13/2017 [facility] Upper GI Series w water soluble DX Upper GI Series w water soluble DX Patient Name: CARLITO NEWSOME : 1945; Age: 71 years y/o Female MR: [id number] Study: Upper GI Series w water soluble DX dated 03/13/2017. Clinical Indication: - Status post repair of hiatal hernia rule out leak or obstruction at gastroesophageal junction in a.m.; Comparison: None Fluoroscopy time: 1 minute 19 seconds. The patient took a few swallows of Gastrografin. The contrast moved to the distal esophagus and then there was hang-up of contrast within the esophagus. Then periodically only a small amount of contrast passed through the markedly narrowed GE junction into the stomach. There is no leakage of contrast. The patient was then given some swallows of water to help facilitate passage of the Gastrografin into the stomach. At the end of the study, only a small amount of Gastrografin remained in the esophagus. Degenerative changes are noted about the thoracic spine. Aortic calcification noted. CONCLUSIONS: 1. No leakage of contrast. 2. After swallows of Gastrografin, the contrast hung up in the esophagus and then periodically had small passages of contrast through the markedly narrowed gastroesophageal junction into the stomach. SL: [id number] 03/13/2017 - - Read by: Gerber Patiño MD Dictated Date/time: 03/13/17 08:41 Electronically Signed by: Gerber Patiño MD 03/13/17 08:49 FINAL REPORT [facility] ELECTROLYTES AGAP 15.5 meq/L 10.0 - 20.0 03/08/2017 [facility] ELECTROLYTES eGFR 52 mL/min/1.73m2 03/08/2017 Result Comment: The eGFR is calculated using the CKD-EPI formula. In most young, healthy individuals the eGFR will be >90 mL/min/1.73m2. The eGFR declines with age. An eGFR of 60-89 may be normal in some populations, particularly the elderly, for whom the CKD-EPI formula has not been extensively validated. Use of the eGFR is not recommended in the following populations: Individuals with unstable creatinine concentrations, including patients and those with serious co-morbid conditions. Patients with extremes in muscle mass or diet. The data above are obtained from the National Kidney Disease Education Program (NKDEP) which additionally recommends that when the eGFR is used in patients with extremes of body mass index for purposes of drug dosing, the eGFR should be multiplied by the estimated BMI. [facility] ELECTROLYTES Creatinine Lvl 1.07 mg/dL 0.50 - 1.40 03/08/2017 [facility] ELECTROLYTES BUN 11 mg/dL 7 - 22 03/08/2017 [facility] ELECTROLYTES Glucose Lvl 75 mg/dL 70 - 99 03/08/2017 [facility] ELECTROLYTES Chloride Lvl 107 meq/L 95 - 109 03/08/2017 [facility] ELECTROLYTES Calcium Lvl 8.2 mg/dL 8.5 - 10.5 03/08/2017 [facility] ELECTROLYTES CO2 23 meq/L 24 - 32 03/08/2017 [facility] ELECTROLYTES Sodium Lvl 141 meq/L 135 - 145 03/08/2017 [facility] ELECTROLYTES Potassium Lvl 4.5 meq/L 3.5 - 5.1 03/08/2017 [facility] HEMATOLOGY Segs 56.6 % 45.0 - 75.0 03/08/2017 [facility] HEMATOLOGY Basophils 0.6 % 0.0 - 1.0 03/08/2017 [facility] HEMATOLOGY Lymphocytes 32.4 % 20.0 - 40.0 03/08/2017 [facility] HEMATOLOGY Eosinophils 2.3 % 0.0 - 4.0 03/08/2017 [facility] HEMATOLOGY Monocytes 8.1 % 2.0 - 12.0 03/08/2017 [facility] HEMATOLOGY Lymphocytes # 2.3 K/CMM 1.0 - 5.5 03/08/2017 [facility] HEMATOLOGY Monocytes # 0.6 K/CMM 0.0 - 0.8 03/08/2017 [facility] HEMATOLOGY Eosinophils # 0.2 K/CMM 0.0 - 0.5 03/08/2017 [facility] HEMATOLOGY Macrocyte 1+ *ABN* (03/08/17 4:55 PM) None Seen 03/08/2017 [facility] HEMATOLOGY Segs-Bands # 4.1 K/CMM 1.5 - 8.1 03/08/2017 [facility] HEMATOLOGY PTT 27.1 s 22.9 - 35.8 03/08/2017 [facility] HEMATOLOGY PT 12.8 s 12.0 - 14.7 03/08/2017 [facility] HEMATOLOGY INR 0.94 0.85 - 1.17 03/08/2017 [facility] HEMATOLOGY MCH 34.6 pg 27.0 - 31.0 03/08/2017 [facility] HEMATOLOGY Hct 36.2 % 36.0 - 48.0 03/08/2017 [facility] HEMATOLOGY MCV 101.1 fL 80.0 - 98.0 03/08/2017 [facility] HEMATOLOGY MCHC 34.2 g/dL 32.0 - 36.0 03/08/2017 [facility] HEMATOLOGY RDW 13.3 % 11.5 - 14.5 03/08/2017 [facility] HEMATOLOGY Platelet 201 K/CMM 133 - 450 03/08/2017 [facility] HEMATOLOGY MPV 8.7 fL 7.4 - 10.4 03/08/2017 [facility] HEMATOLOGY RBC 3.58 M/CMM 4.20 - 5.40 03/08/2017 [facility] HEMATOLOGY Hgb 12.4 g/dL 12.0 - 16.0 03/08/2017 [facility] HEMATOLOGY WBC 7.2 K/CMM 3.7 - 10.4 03/08/2017 [facility] Stomach emptying NM Stomach emptying NM Patient Name: CARLITO NEWSOME : 1945; Age: 71 years Female MR: [id number] Study: Stomach emptying NM 11/20/2016 8:18 AM CDT Clinical Indication: K44.9 Diaphragmatic hernia without obstruction or gangrene. Gastroesophageal reflux. COMPARISON: None TECHNIQUE: 1 mCi of sulfur colloid meal was administered orally. Images were performed in anterior projection and an excretion curve plotted. FINDINGS: There is prompt activity identified within the stomach and prompt excretion into the small bowel thereafter. The slope of the excretion curve demonstrates a peak at 19 minutes with normal excretion after. The T half life is 50 minutes. (Normal range of 45min- 110min). IMPRESSION: Normal gastric emptying study. SL: [id number] 11/20/2016 - - Read by: Gene Pugh MD Dictated Date/time: 11/20/16 10:51 Electronically Signed by: Gene Pugh MD 11/20/16 10:52 FINAL REPORT [facility] Upper GI series DX Upper GI series DX EXAM: FLUOROSCOPY BARIUM UPPER GI DOUBLE CONTRAST DATE: 09/25/2016 7:39 AM GASOLINE SERVICE ATTENDANT INDICATION: K21.9 Gastro-esophageal reflux disease without esophagitis ADDITIONAL INFORMATION: None. COMPARISON: None. TECHNIQUE: Upper GI was performed using double contrast technique via p.o. intake. FLUOROSCOPY TIME: About 32 seconds. DISCUSSION: Preliminary radiograph: Normal. Swallowing: Normal. Esophagus: Motility: Normal. Anatomy: No filling defects, mucosal irregularities, obstructions or extrinsic compressions identified. Hiatal hernia: Large hiatal hernia. Gastroesophageal reflux: Gastroesophageal reflux demonstrated during the examination. Stomach: Normal. Duodenum: Normal. IMPRESSION: 1. Large hiatal hernia with gastroesophageal reflux demonstrated during the examination. SL: [id number] 09/25/2016 - - Read by: Yossi Corral MD Dictated Date/time: 09/25/16 09:39 Electronically Signed by: Yossi Corral MD 09/25/16 09:41 FINAL REPORT [facility] Digital Mammo Screening Tyler MA Digital Mammo Screening Tyler MA - DIGITAL MAMMO SCREENING TYLER MA BILATERAL DIGITAL SCREENING MAMMOGRAM WITH CAD: 09/07/2016 CLINICAL: Z12.31 Encounter For Screening Mammogram For Malignant Neoplasm Of Breast. Current study was evaluated with a Computer Aided Detection (CAD) system. Comparison is made to exams dated: 10/12/2015 mammogram and 07/06/2014 mammogram - [facility]. Current study contains 6 films. There are scattered fibroglandular densities in both breasts. There are benign vascular calcifications and calcifications in both breasts. No significant masses, calcifications, or other findings are seen in either breast. There has been no significant interval change. IMPRESSION: BENIGN There is no mammographic evidence of malignancy. A 1 year screening mammogram is recommended. Benigno Hall sns/penrad:09/14/2016 16:31:33 Manager Group: Margo Talbert)(Liz[place]), [facility] This exam was dictated and interpreted by [id number] for [facility] Breast Ehrenberg, 12. letter sent: Normal exam Mammogram BI-RADS: 2 Benign 09/07/2016 - - Read by: Benigno Hall MD Dictated Date/time: 09/14/16 16:31 Electronically Signed by: Benigno Hall MD 09/14/16 16:31 FINAL REPORT [facility] CHEM PANEL eGFR 65 mL/min/1.73m2 07/21/2016 Result Comment: The eGFR is calculated using the CKD-EPI formula. In most young, healthy individuals the eGFR will be >90 mL/min/1.73m2. The eGFR declines with age. An eGFR of 60-89 may be normal in some populations, particularly the elderly, for whom the CKD-EPI formula has not been extensively validated. Use of the eGFR is not recommended in the following populations: Individuals with unstable creatinine concentrations, including patients and those with serious co-morbid conditions. Patients with extremes in muscle mass or diet. The data above are obtained from the National Kidney Disease Education Program (NKDEP) which additionally recommends that when the eGFR is used in patients with extremes of body mass index for purposes of drug dosing, the eGFR should be multiplied by the estimated BMI. [facility] CHEM PANEL POC Creatinine 0.9 mg/dL 0.5 - 1.4 07/21/2016 [facility] Abdomen/Pelvis w IV contrast CT Abdomen/Pelvis w IV contrast CT Study: Abdomen/Pelvis w IV contrast CT Clinical Indication: R10.13 Epigastric pain Comparison: CT abdomen and pelvis from 01/01/2010 TECHNIQUE: Multiple axial CT images of the abdomen and pelvis were acquired following the administration of intravenous contrast. Oral contrast was administered to the patient. Sagittal and coronal reformatted images were performed. CT Radiation Dose DLP 2157.56 mGy-cm FINDINGS: The visualized lung bases are clear bilaterally. Patient is status post cholecystectomy. Calcified hepatic granuloma is seen. Pancreas, spleen, adrenal glands, and kidneys are normal in appearance. No intrahepatic or extrahepatic biliary duct dilatation is seen. Urinary bladder is well-distended. Patient is status post hysterectomy. Sigmoid diverticula are seen without inflammatory change to suggest acute diverticulitis. Small to moderate-sized hiatal hernia is seen. The remaining visualized hollow viscera and appendix are unremarkable. No free air, free fluid, or pathologic adenopathy is seen. Diffuse arterial calcifications are present. Degenerative changes of the lower lumbar spine are seen. IMPRESSION: 1. No acute intra-abdominal/pelvic abnormality. 2. Sigmoid diverticulosis without acute diverticulitis. 3. Small to moderate-sized hiatal hernia. SL: [id number] 07/21/2016 - - Read by: Kwame Ayers MD Dictated Date/time: 07/21/16 15:19 Electronically Signed by: Kwame Ayers MD 07/21/16 15:24 FINAL REPORT [facility] Shoulder series DX Shoulder series DX Patient Name: CARLITO NEWSOME : 1945; Age: 70 years y/o Female MR: [id number] * LEFT SHOULDER, 3 views History: Left shoulder pain. Technique: The left shoulder was evaluated in frontal projection in internal and external rotation. An oblique transaxillary view was also obtained. FINDINGS: There is no evidence of fracture, dislocation, or acute change. There are no degenerative changes or other significant osseous abnormalities. Note is made of a small bone island in the left glenoid. IMPRESSION: 1. Negative left shoulder. SL: [id number] 05/18/2016 - - Read by: Denver Cevallos MD Dictated Date/time: 05/18/16 15:06 Electronically Signed by: Denver Cevallos MD 05/18/16 15:07 FINAL REPORT [facility] Knee 1-2 Views Bilateral DX Knee 1-2 Views Bilateral DX Study: Bilateral knees, 2 views Clinical Indication: Chronic bilateral knee pain Comparison: None FINDINGS: Right knee, 2 views: The components of a total joint arthroplasty are in anatomic alignment, without evidence of loosening. No acute osseous abnormality is seen. Left knee, 2 views: The components of a total joint arthroplasty are in anatomic alignment, without evidence of loosening. Moderate soft tissue swelling is noted about the knee. No acute osseous abnormality is seen. SL: [id number] 05/18/2016 - - Read by: Gagan Garcia MD Dictated Date/time: 05/18/16 15:06 Electronically Signed by: Gagan Garcia MD 05/18/16 15:09 FINAL REPORT [facility] CHEM PANEL eGFR 90 mL/min/1.73m2 03/17/2016 Result Comment: The eGFR is calculated using the CKD-EPI formula. In most young, healthy individuals the eGFR will be >90 mL/min/1.73m2. The eGFR declines with age. An eGFR of 60-89 may be normal in some populations, particularly the elderly, for whom the CKD-EPI formula has not been extensively validated. Use of the eGFR is not recommended in the following populations: Individuals with unstable creatinine concentrations, including patients and those with serious co-morbid conditions. Patients with extremes in muscle mass or diet. The data above are obtained from the National Kidney Disease Education Program (NKDEP) which additionally recommends that when the eGFR is used in patients with extremes of body mass index for purposes of drug dosing, the eGFR should be multiplied by the estimated BMI. [facility] CHEM PANEL Chloride Lvl 108 meq/L 95 - 109 03/17/2016 [facility] CHEM PANEL Potassium Lvl 3.7 meq/L 3.5 - 5.1 03/17/2016 [facility] CHEM PANEL CO2 26 meq/L 24 - 32 03/17/2016 [facility] CHEM PANEL Calcium Lvl 7.6 mg/dL 8.5 - 10.5 03/17/2016 [facility] CHEM PANEL AGAP 11.7 meq/L 10.0 - 20.0 03/17/2016 [facility] CHEM PANEL Glucose Lvl 133 mg/dL 70 - 99 03/17/2016 [facility] CHEM PANEL BUN 3 mg/dL 7 - 22 03/17/2016 [facility] CHEM PANEL Creatinine Lvl 0.64 mg/dL 0.50 - 1.40 03/17/2016 [facility] CHEM PANEL Sodium Lvl 142 meq/L 135 - 145 03/17/2016 [facility] CHEM PANEL Magnesium Lvl 1.5 mg/dL 1.8 - 2.4 03/17/2016 [facility] CHEM PANEL Phosphorus 2.6 mg/dL 2.5 - 4.5 03/16/2016 [facility] ELECTROLYTES Sodium Lvl 143 meq/L 135 - 145 03/16/2016 [facility] ELECTROLYTES Chloride Lvl 109 meq/L 95 - 109 03/16/2016 [facility] ELECTROLYTES Potassium Lvl 3.4 meq/L 3.5 - 5.1 03/16/2016 [facility] ELECTROLYTES CO2 24 meq/L 24 - 32 03/16/2016 [facility] ELECTROLYTES Calcium Lvl 7.4 mg/dL 8.5 - 10.5 03/16/2016 [facility] ELECTROLYTES AGAP 13.4 meq/L 10.0 - 20.0 03/16/2016 [facility] ELECTROLYTES eGFR 93 mL/min/1.73m2 03/16/2016 Result Comment: The eGFR is calculated using the CKD-EPI formula. In most young, healthy individuals the eGFR will be >90 mL/min/1.73m2. The eGFR declines with age. An eGFR of 60-89 may be normal in some populations, particularly the elderly, for whom the CKD-EPI formula has not been extensively validated. Use of the eGFR is not recommended in the following populations: Individuals with unstable creatinine concentrations, including patients and those with serious co-morbid conditions. Patients with extremes in muscle mass or diet. The data above are obtained from the National Kidney Disease Education Program (NKDEP) which additionally recommends that when the eGFR is used in patients with extremes of body mass index for purposes of drug dosing, the eGFR should be multiplied by the estimated BMI. [facility] ELECTROLYTES Creatinine Lvl 0.57 mg/dL 0.50 - 1.40 03/16/2016 [facility] ELECTROLYTES BUN 5 mg/dL 7 - 22 03/16/2016 [facility] ELECTROLYTES Glucose Lvl 166 mg/dL 70 - 99 03/16/2016 [facility] CHEM PANEL Magnesium Lvl 1.8 mg/dL 1.8 - 2.4 03/15/2016 [facility] CHEM PANEL Phosphorus 2.1 mg/dL 2.5 - 4.5 03/15/2016 [facility] CHEM PANEL eGFR 60 mL/min/1.73m2 03/15/2016 Result Comment: The eGFR is calculated using the CKD-EPI formula. In most young, healthy individuals the eGFR will be >90 mL/min/1.73m2. The eGFR declines with age. An eGFR of 60-89 may be normal in some populations, particularly the elderly, for whom the CKD-EPI formula has not been extensively validated. Use of the eGFR is not recommended in the following populations: Individuals with unstable creatinine concentrations, including patients and those with serious co-morbid conditions. Patients with extremes in muscle mass or diet. The data above are obtained from the National Kidney Disease Education Program (NKDEP) which additionally recommends that when the eGFR is used in patients with extremes of body mass index for purposes of drug dosing, the eGFR should be multiplied by the estimated BMI. [facility] CHEM PANEL CO2 23 meq/L 24 - 32 03/15/2016 [facility] CHEM PANEL Chloride Lvl 106 meq/L 95 - 109 03/15/2016 [facility] CHEM PANEL Calcium Lvl 8.0 mg/dL 8.5 - 10.5 03/15/2016 [facility] CHEM PANEL AGAP 13.3 meq/L 10.0 - 20.0 03/15/2016 [facility] CHEM PANEL Potassium Lvl 3.3 meq/L 3.5 - 5.1 03/15/2016 [facility] CHEM PANEL Sodium Lvl 139 meq/L 135 - 145 03/15/2016 [facility] CHEM PANEL Creatinine Lvl 0.95 mg/dL 0.50 - 1.40 03/15/2016 [facility] CHEM PANEL BUN 6 mg/dL 7 - 22 03/15/2016 [facility] CHEM PANEL Glucose Lvl 182 mg/dL 70 - 99 03/15/2016 [facility] Brain wo contrast MRI Brain wo contrast MRI EXAM: MRI BRAIN WITHOUT CONTRAST DATE: 03/14/2016 2:09 AM CDT INDICATION: Headache with Dizziness and Giddiness COMPARISON: CT head of 03/13/2016. TECHNIQUE: Multiplanar, mutisequence MRI of the brain without contrast. IV contrast: None. FINDINGS: Diffusion weighted images demonstrate no focal signal abnormality. Mild to moderate chronic small vessel ischemic change. 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 No acute intracranial hemorrhage detected. The ventricles are normal in size and symmetric. No extra-axial fluid collection identified. Mccollum-white distinction is preserved. No mass lesion or midline shift detected. Partial empty sella is present which is a normal variant. The intracranial arterial and venous structures demonstrate normal flow voids. Mild mucosal thickening of the ethmoid air cells. IMPRESSION: 1. No definite acute infarct or intracranial hemorrhage detected. 2. Mild to moderate chronic small vessel ischemic change. 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 SL: [id number] 03/14/2016 - - Read by: Yossi Corral MD Dictated Date/time: 03/14/16 23:25 Electronically Signed by: Yossi Corral MD 03/14/16 23:30 FINAL REPORT [facility] CHEM PANEL Phosphorus 1.1 mg/dL 2.5 - 4.5 03/14/2016 Result Comment: Critical Result(s) called deloris Bryant at _03/14/2016 05:20 by_btd. Read back OK. [facility] CHEM PANEL Magnesium Lvl 1.1 mg/dL 1.8 - 2.4 03/14/2016 [facility] HEMATOLOGY Segs 82.3 % 45.0 - 75.0 03/14/2016 [facility] HEMATOLOGY Lymphocytes 8.2 % 20.0 - 40.0 03/14/2016 [facility] HEMATOLOGY Basophils 0.3 % 0.0 - 1.0 03/14/2016 [facility] HEMATOLOGY Eosinophils 0.1 % 0.0 - 4.0 03/14/2016 [facility] HEMATOLOGY Monocytes 9.1 % 2.0 - 12.0 03/14/2016 [facility] HEMATOLOGY Lymphocytes # 0.6 K/CMM 1.0 - 5.5 03/14/2016 [facility] HEMATOLOGY Segs-Bands # 6.4 K/CMM 1.5 - 8.1 03/14/2016 [facility] HEMATOLOGY Macrocyte 1+ *ABN* (03/14/16 4:42 AM) None Seen 03/14/2016 [facility] HEMATOLOGY Monocytes # 0.7 K/CMM 0.0 - 0.8 03/14/2016 [facility] HEMATOLOGY MCHC 33.9 g/dL 32.0 - 36.0 03/14/2016 [facility] HEMATOLOGY RDW 13.1 % 11.5 - 14.5 03/14/2016 [facility] HEMATOLOGY MPV 8.6 fL 7.4 - 10.4 03/14/2016 [facility] HEMATOLOGY Platelet 138 K/CMM 133 - 450 03/14/2016 [facility] HEMATOLOGY MCH 34.4 pg 27.0 - 31.0 03/14/2016 [facility] HEMATOLOGY MCV 101.6 fL 80.0 - 98.0 03/14/2016 [facility] HEMATOLOGY Hct 35.9 % 36.0 - 48.0 03/14/2016 [facility] HEMATOLOGY RBC 3.53 M/CMM 4.20 - 5.40 03/14/2016 [facility] HEMATOLOGY Hgb 12.2 g/dL 12.0 - 16.0 03/14/2016 [facility] HEMATOLOGY WBC 7.8 K/CMM 3.7 - 10.4 03/14/2016 [facility] CHEM PANEL Lactic Acid Lvl 1.3 mMol/L 0.5 - 2.2 03/14/2016 [facility] URINE AND STOOL UA Spec Grav 1.010 <=1.030 03/14/2016 [facility] URINE AND STOOL UA Turbidity Cloudy *ABN* (03/13/16 9:36 PM) Clear 03/14/2016 [facility] URINE AND STOOL UA WBC 51-100 /HPF None Seen /HPF 03/14/2016 [facility] URINE AND STOOL UA Protein 100 mg/dL Negative mg/dL 03/14/2016 [facility] URINE AND STOOL UA Glucose Negative (03/13/16 9:36 PM) Negative 03/14/2016 [facility] URINE AND STOOL UA Mucus None Seen (03/13/16 9:36 PM) None Seen 03/14/2016 [facility] URINE AND STOOL UA Color Yellow *NA* (03/13/16 9:36 PM) Yellow 03/14/2016 [facility] URINE AND STOOL UA Sq Epi Rare /LPF Few /LPF 03/14/2016 [facility] URINE AND STOOL UA RBC 0-2 /HPF 0 - 2 03/14/2016 [facility] URINE AND STOOL UA Bacteria Many /HPF None Seen /HPF 03/14/2016 [facility] URINE AND STOOL UA Leuk Est Moderate *ABN* (03/13/16 9:36 PM) Negative 03/14/2016 [facility] URINE AND STOOL UA Blood Moderate *ABN* (03/13/16 9:36 PM) Negative 03/14/2016 [facility] URINE AND STOOL UA Urobilinogen 0.2 EU/dL 0.1 - 1.0 03/14/2016 [facility] URINE AND STOOL UA Nitrite Negative (03/13/16 9:36 PM) Negative 03/14/2016 [facility] URINE AND STOOL UA pH 6.5 5.0 - 8.0 03/14/2016 [facility] URINE AND STOOL UA Ketones Negative *NA* (03/13/16 9:36 PM) Negative 03/14/2016 [facility] URINE AND STOOL UA Bili Negative *NA* (03/13/16 9:36 PM) Negative 03/14/2016 [facility] CARDIAC ENZYMES CK MB Index null 0.0 - 2.5 03/14/2016 [facility] CARDIAC ENZYMES Troponin-I null 0.00 - 0.40 03/14/2016 [facility] CARDIAC ENZYMES CK MB null 0.5 - 3.6 03/14/2016 [facility] CARDIAC ENZYMES Total CK 47 unit/L 12 - 191 03/14/2016 [facility] CHEM PANEL Alk Phos 73 unit/L 39 - 136 03/14/2016 [facility] CHEM PANEL Bili Total 0.5 mg/dL 0.2 - 1.3 03/14/2016 [facility] CHEM PANEL B/C Ratio 9 6 - 25 03/14/2016 [facility] CHEM PANEL A/G Ratio 0.7 0.7 - 1.6 03/14/2016 [facility] CHEM PANEL Globulin 4.3 g/dL 2.0 - 4.0 03/14/2016 [facility] CHEM PANEL AST 17 unit/L 0 - 37 03/14/2016 [facility] CHEM PANEL ALT 19 unit/L 0 - 65 03/14/2016 [facility] CHEM PANEL Total Protein 7.5 g/dL 6.4 - 8.4 03/14/2016 [facility] CHEM PANEL Albumin Lvl 3.2 g/dL 3.5 - 5.0 03/14/2016 [facility] HEMATOLOGY Segs 84.5 % 45.0 - 75.0 03/14/2016 [facility] HEMATOLOGY Monocytes # 0.8 K/CMM 0.0 - 0.8 03/14/2016 [facility] HEMATOLOGY Lymphocytes # 0.7 K/CMM 1.0 - 5.5 03/14/2016 [facility] HEMATOLOGY Monocytes 8.5 % 2.0 - 12.0 03/14/2016 [facility] HEMATOLOGY Basophils 0.1 % 0.0 - 1.0 03/14/2016 [facility] HEMATOLOGY Eosinophils 0.1 % 0.0 - 4.0 03/14/2016 [facility] HEMATOLOGY Lymphocytes 6.8 % 20.0 - 40.0 03/14/2016 [facility] HEMATOLOGY Macrocyte 2+ *ABN* (03/13/16 7:13 PM) None Seen 03/14/2016 [facility] HEMATOLOGY Segs-Bands # 8.2 K/CMM 1.5 - 8.1 03/14/2016 [facility] HEMATOLOGY Platelet 155 K/CMM 133 - 450 03/14/2016 [facility] HEMATOLOGY RDW 13.2 % 11.5 - 14.5 03/14/2016 [facility] HEMATOLOGY MPV 8.8 fL 7.4 - 10.4 03/14/2016 [facility] HEMATOLOGY MCV 104.9 fL 80.0 - 98.0 03/14/2016 [facility] HEMATOLOGY MCHC 32.6 g/dL 32.0 - 36.0 03/14/2016 [facility] HEMATOLOGY MCH 34.2 pg 27.0 - 31.0 03/14/2016 [facility] HEMATOLOGY WBC 9.7 K/CMM 3.7 - 10.4 03/14/2016 [facility] HEMATOLOGY RBC 3.91 M/CMM 4.20 - 5.40 03/14/2016 [facility] HEMATOLOGY Hct 41.0 % 36.0 - 48.0 03/14/2016 [facility] HEMATOLOGY Hgb 13.4 g/dL 12.0 - 16.0 03/14/2016 [facility] Brain wo contrast CT Brain wo contrast CT PROCEDURE: CT head without contrast INDICATION: Weakness , headache COMPARISON: None. TECHNIQUE: Noncontrast head CT with multiplanar reformats. COMMENTS: Brain: No intracranial hemorrhage. No mass. Intracranial atherosclerotic calcifications. Supratentorial white matter areas of low attenuation are nonspecific but likely represent chronic microangiopathic changes. Basal ganglia and left posterior internal capsule lacunar hypodensities. Soft tissues and orbits: Unremarkable. Calvarium and skull base: No acute or suspicious findings. Paranasal sinuses and mastoids: Essentially clear. [employer]: Non contributory. IMPRESSION: 1. No intracranial hemorrhage. 2. 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 Basal ganglia and left posterior internal capsule limb lacunar age indeterminate infarcts are favored to be chronic. MRI available as warranted. SL: [id number] 03/13/2016 - - Read by: Mushtaq Herrera MD Dictated Date/time: 03/13/16 23:45 Electronically Signed by: Mushtaq Herrera MD 03/13/16 23:48 FINAL REPORT [facility] Chest 1view DX Chest 1view DX EXAM: Chest 1view DX DATE: 03/13/2016 6:49 PM CDT INDICATION: Chest pain COMPARISON: 08/14/2012. IMPRESSION: Stable prominent cardiac silhouette. No definite failure. Atherosclerotic thoracic aorta. No focal consolidation, significant pleural effusion or pneumothorax. SL: [id number] 03/13/2016 - - Read by: Yossi Corral MD Dictated Date/time: 03/13/16 19:13 Electronically Signed by: Yossi Corral MD 03/13/16 19:13 FINAL REPORT [facility] Hip 2/3 views uni DX Hip 2/3 views uni DX Study: Hip 2/3 views uni DX 03/13/2016 6:50 PM CDT Patient Name: CARLITO NEWSOME MR: [id number] : 1945; Age: 70 years y/o Female Ordering Physician: Wilbert Valentin DO Clinical Indication: Acute left hip pain after a fall. Comparison: None LEFT HIP, 2 views: 1. No acute fracture, dislocation, or suspicious focal osseous lesion. 2. 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 3. Mild primary osteoarthritis in the left SI joint. 4. Mild to moderate lumbosacral spondylosis and facet arthrosis. 5. The soft tissues are normal. SL: [facility] 03/13/2016 - - Read by: Stewart Rodriguez MD Dictated Date/time: 03/13/16 19:33 Electronically Signed by: Stewart Rodriguez MD 03/13/16 19:35 FINAL REPORT [facility] Bowel colon Barium enema Bowel colon Barium enema STUDY: Single contrast barium enema examination DIAGNOSIS: Scattered diverticula throughout the colon but no evidence of diverticulitis or acute abnormality COMMENT: Single contrast enema was performed. Multiple images of the colon were obtained in multiple projections and there is excellent visualization of the entire colon and terminal ileum. Scattered diverticula are seen predominantly throughout the sigmoid colon but some diverticula are also seen in the mid descending colon and the right side of the colon. The colon mucosa is otherwise unremarkable and I cannot identify any definite filling defects. The terminal ileum is normal and there is partial visualization of the appendix. The postevacuation film demonstrates normal mucosa throughout. There are clips in the right upper quadrant area compatible with previous cholecystectomy. SL: 12 02/20/2014 - - Read by: Wing Negrete MD Dictated Date/time: 02/20/14 11:26 Electronically Signed by: Wing Negrete MD 02/20/14 11:28 [facility] [facility] BEDSIDE GLUCOSE TESTING Comment2 Assess patient 05/26/2011 NA [facility] BEDSIDE GLUCOSE TESTING Gluc POC Lifscn 214.0 mg/dL 65 - 110 05/26/2011 [place] 1Interpretive Data: Upper Reportable Limit: 200 mg/dL. [facility] BEDSIDE GLUCOSE TESTING Comment1 Notify MIRANDA 05/26/2011 NA [facility] BEDSIDE GLUCOSE TESTING Comment1 Notify MIRANDA 05/26/2011 NA [facility] BEDSIDE GLUCOSE TESTING Gluc POC Lifscn 207.0 mg/dL 65 - 110 05/26/2011 [place] 2Interpretive Data: Upper Reportable Limit: 200 mg/dL. [facility] BEDSIDE GLUCOSE TESTING Gluc POC Lifscn 280.0 mg/dL 65 - 110 05/26/2011 PR 3Interpretive Data: Upper Reportable Limit: 200 mg/dL. [facility] BEDSIDE GLUCOSE TESTING Comment1 Notify RN/ 05/25/2011 NA [facility] HEMATOLOGY Eosinophils # 0.4 K/CMM 0.0 - 0.5 05/25/2011 Normal [facility] HEMATOLOGY Lymphocytes # 2.1 K/CMM 1.0 - 5.5 05/25/2011 Normal [facility] HEMATOLOGY Monocytes # 0.8 K/CMM 0.0 - 0.8 05/25/2011 Normal [facility] HEMATOLOGY Segs-Bands # 3.4 K/CMM 1.5 - 8.1 05/25/2011 Normal [facility] HEMATOLOGY Basophils # 0.0 K/CMM 0.0 - 0.2 05/25/2011 Normal [facility] HEMATOLOGY Monocytes 12.3 % 2.0 - 12.0 05/25/2011 [facility] HEMATOLOGY Eosinophils 6.0 % 0.0 - 4.0 05/25/2011 [facility] HEMATOLOGY Lymphocytes 31.1 % 20.0 - 40.0 05/25/2011 Normal [facility] HEMATOLOGY Basophils 0.6 % 0.0 - 1.0 05/25/2011 Normal [facility] HEMATOLOGY Segs 50.0 % 45.0 - 75.0 05/25/2011 Normal [facility] HEMATOLOGY RBC 2.96 M/CMM 4.20 - 5.40 05/25/2011 LOW [facility] HEMATOLOGY Hgb 9.0 g/dL 12.0 - 16.0 05/25/2011 LOW [facility] HEMATOLOGY WBC 6.9 K/CMM 3.7 - 10.4 05/25/2011 Normal [facility] HEMATOLOGY RDW 15.3 % 11.5 - 14.5 05/25/2011 [facility] HEMATOLOGY MCH 30.3 pg 27.0 - 31.0 05/25/2011 Normal [facility] HEMATOLOGY MCHC 32.6 g/dL 32.0 - 36.0 05/25/2011 Normal [facility] HEMATOLOGY MCV 93.2 fL 81.0 - 99.0 05/25/2011 Normal [facility] HEMATOLOGY Hct 27.6 % 36.0 - 48.0 05/25/2011 LOW [facility] HEMATOLOGY MPV 7.6 fL 7.4 - 10.4 05/25/2011 Normal [facility] HEMATOLOGY Platelet 468.0 K/CMM 133 - 450 05/25/2011 HI [facility] BEDSIDE GLUCOSE TESTING Comment2 Assess patient 05/24/2011 NA [facility] BEDSIDE GLUCOSE TESTING Comment2 Assess patient 05/24/2011 NA [facility] CHEMISTRY Creatinine Lvl 0.9 mg/dL 0.5 - 1.4 05/22/2011 Normal [facility] CHEMISTRY Sodium Lvl 139.0 meq/L 135 - 145 05/22/2011 Normal [facility] CHEMISTRY BUN 14.0 mg/dL 7 - 22 05/22/2011 Normal [facility] CHEMISTRY Potassium Lvl 4.8 meq/L 3.5 - 5.1 05/22/2011 Normal [facility] CHEMISTRY Chloride Lvl 101.0 meq/L 95 - 109 05/22/2011 Normal [facility] CHEMISTRY Calcium Lvl 8.9 mg/dL 8.5 - 10.5 05/22/2011 Normal [facility] CHEMISTRY CO2 28.0 meq/L 24 - 32 05/22/2011 Normal [facility] CHEMISTRY Glucose Lvl 147.0 mg/dL 05/22/2011 NA 4Interpretive Data: Reference Ranges : 0 - 7 days : 41 - 90 mg/dL7 days - 150 yrs : 70 - 99 mg/dL (fasting), based on the clinical recommendations of the [place] [employer]. [facility] CHEMISTRY AGAP 14.8 meq/L 10.0 - 20.0 05/22/2011 Normal [facility] HEMATOLOGY RDW 14.1 % 11.5 - 14.5 05/22/2011 Normal [facility] HEMATOLOGY MCH 30.0 pg 27.0 - 31.0 05/22/2011 Normal [facility] HEMATOLOGY Hct 27.9 % 36.0 - 48.0 05/22/2011 LOW [facility] HEMATOLOGY MCHC 32.9 g/dL 32.0 - 36.0 05/22/2011 Normal [facility] HEMATOLOGY MPV 7.9 fL 7.4 - 10.4 05/22/2011 Normal [facility] HEMATOLOGY Platelet 317.0 K/CMM 133 - 450 05/22/2011 Normal [facility] HEMATOLOGY MCV 91.2 fL 81.0 - 99.0 05/22/2011 Normal [facility] HEMATOLOGY Hgb 9.2 g/dL 12.0 - 16.0 05/22/2011 LOW [facility] HEMATOLOGY RBC 3.06 M/CMM 4.20 - 5.40 05/22/2011 LOW [facility] HEMATOLOGY WBC 4.9 K/CMM 3.7 - 10.4 05/22/2011 Normal [facility] HEMATOLOGY Basophils # 0.0 K/CMM 0.0 - 0.2 05/22/2011 Normal [facility] HEMATOLOGY Eosinophils # 0.4 K/CMM 0.0 - 0.5 05/22/2011 Normal [facility] HEMATOLOGY Monocytes # 0.5 K/CMM 0.0 - 0.8 05/22/2011 Normal [facility] HEMATOLOGY Monocytes 10.3 % 2.0 - 12.0 05/22/2011 Normal [facility] HEMATOLOGY Segs-Bands # 2.4 K/CMM 1.5 - 8.1 05/22/2011 Normal [facility] HEMATOLOGY Lymphocytes 32.5 % 20.0 - 40.0 05/22/2011 Normal [facility] HEMATOLOGY Segs 49.5 % 45.0 - 75.0 05/22/2011 Normal [facility] HEMATOLOGY Eosinophils 7.4 % 0.0 - 4.0 05/22/2011 HI [facility] HEMATOLOGY Lymphocytes # 1.6 K/CMM 1.0 - 5.5 05/22/2011 Normal [facility] HEMATOLOGY Basophils 0.3 % 0.0 - 1.0 05/22/2011 Normal [facility] CHEMISTRY Chol 129.0 mg/dL 120 - 200 05/21/2011 Normal [facility] CHEMISTRY HDL 60.0 mg/dL >>=35 05/21/2011 Normal [facility] CHEMISTRY Trig 115.0 mg/dL 0 - 200 05/21/2011 Normal [facility] CHEMISTRY LDL 46.0 mg/dL 0 - 129 05/21/2011 Normal [facility] CHEMISTRY CHD Risk 2.15 3.90 - 5.80 05/21/2011 LOW [facility] CHEMISTRY Hgb A1C 6.9 % 05/21/2011 NA 5Interpretive Data: HbA1C% eAG(mg/dL) Interpretation 6.0 126 Very good control 6.5 140 Very good control 7.0 154 Good Control 7.5 169 Good Control 8.0 183 Marginal Control, take action to lower 8.5 197 Marginal Control, take action to lower 9.0 212 Poor Control, take action to lower 9.5 226 Poor Control, take action to lower10.0 240 Poor Control, take action to lower [facility] HEMATOLOGY Platelet 262.0 K/CMM 133 - 450 05/21/2011 Normal [facility] HEMATOLOGY RDW 15.0 % 11.5 - 14.5 05/21/2011 HI [facility] HEMATOLOGY Hct 25.6 % 36.0 - 48.0 05/21/2011 LOW [facility] HEMATOLOGY MPV 8.1 fL 7.4 - 10.4 05/21/2011 Normal [facility] HEMATOLOGY MCHC 33.2 g/dL 32.0 - 36.0 05/21/2011 Normal [facility] HEMATOLOGY MCV 91.5 fL 81.0 - 99.0 05/21/2011 Normal [facility] HEMATOLOGY MCH 30.4 pg 27.0 - 31.0 05/21/2011 Normal [facility] HEMATOLOGY Hgb 8.5 g/dL 12.0 - 16.0 05/21/2011 LOW [facility] HEMATOLOGY WBC 5.1 K/CMM 3.7 - 10.4 05/21/2011 Normal [facility] HEMATOLOGY RBC 2.8 M/CMM 4.20 - 5.40 05/21/2011 LOW [facility] HEMATOLOGY Basophils # 0.0 K/CMM 0.0 - 0.2 05/21/2011 Normal [facility] HEMATOLOGY Lymphocytes 35.4 % 20.0 - 40.0 05/21/2011 Normal [facility] HEMATOLOGY Segs 46.9 % 45.0 - 75.0 05/21/2011 Normal [facility] HEMATOLOGY Monocytes 11.1 % 2.0 - 12.0 05/21/2011 Normal [facility] HEMATOLOGY Basophils 0.5 % 0.0 - 1.0 05/21/2011 Normal [facility] HEMATOLOGY Monocytes # 0.6 K/CMM 0.0 - 0.8 05/21/2011 Normal [facility] HEMATOLOGY Eosinophils # 0.3 K/CMM 0.0 - 0.5 05/21/2011 Normal [facility] HEMATOLOGY Segs-Bands # 2.4 K/CMM 1.5 - 8.1 05/21/2011 Normal [facility] HEMATOLOGY Lymphocytes # 1.8 K/CMM 1.0 - 5.5 05/21/2011 Normal [facility] HEMATOLOGY Eosinophils 6.1 % 0.0 - 4.0 05/21/2011 [facility] BEDSIDE GLUCOSE TESTING Gluc POC Lifscn 200.0 mg/dL 65 - 110 05/19/2011 PR 2Interpretive Data: Upper Reportable Limit: 200 mg/dL. [facility] BEDSIDE GLUCOSE TESTING Comment1 Notify RN/ 05/19/2011 NA [facility] BEDSIDE GLUCOSE TESTING Comment2 Assess patient 05/19/2011 NA [facility] BEDSIDE GLUCOSE TESTING Gluc POC Lifscn 174.0 mg/dL 65 - 110 05/19/2011 PR 3Interpretive Data: Upper Reportable Limit: 200 mg/dL. [facility] BEDSIDE GLUCOSE TESTING Comment1 Notify RN/ 05/19/2011 NA [facility] BEDSIDE GLUCOSE TESTING Comment1 Notify RN/ 05/19/2011 NA [facility] BEDSIDE GLUCOSE TESTING Gluc POC Lifscn 187.0 mg/dL 65 - 110 05/19/2011 PR 4Interpretive Data: Upper Reportable Limit: 200 mg/dL. [facility] CHEMISTRY CO2 25.0 meq/L 24 - 32 05/18/2011 Normal [facility] CHEMISTRY Calcium Lvl 8.7 mg/dL 8.5 - 10.5 05/18/2011 Normal [facility] CHEMISTRY Creatinine Lvl 0.8 mg/dL 0.5 - 1.4 05/18/2011 Normal [facility] CHEMISTRY Sodium Lvl 138.0 meq/L 135 - 145 05/18/2011 Normal [facility] CHEMISTRY Chloride Lvl 104.0 meq/L 95 - 109 05/18/2011 Normal [facility] CHEMISTRY Potassium Lvl 4.5 meq/L 3.5 - 5.1 05/18/2011 Normal [facility] CHEMISTRY Glucose Lvl 162.0 mg/dL 05/18/2011 NA 5Interpretive Data: Reference Ranges : 0 - 7 days : 41 - 90 mg/dL7 days - 150 yrs : 70 - 99 mg/dL (fasting), based on the clinical recommendations of the [place] [employer]. [facility] CHEMISTRY BUN 11.0 mg/dL 7 - 22 05/18/2011 Normal [facility] CHEMISTRY AGAP 13.5 meq/L 10.0 - 20.0 05/18/2011 Normal [facility] HEMATOLOGY RDW 14.9 % 11.5 - 14.5 05/18/2011 HI [facility] HEMATOLOGY MCHC 33.7 g/dL 32.0 - 36.0 05/18/2011 Normal [facility] HEMATOLOGY RBC 3.19 M/CMM 4.20 - 5.40 05/18/2011 LOW [facility] HEMATOLOGY MPV 8.3 fL 7.4 - 10.4 05/18/2011 Normal [facility] HEMATOLOGY Platelet 207.0 K/CMM 133 - 450 05/18/2011 Normal [facility] HEMATOLOGY Hct 29.3 % 36.0 - 48.0 05/18/2011 LOW [facility] HEMATOLOGY Hgb 9.9 g/dL 12.0 - 16.0 05/18/2011 LOW [facility] HEMATOLOGY MCH 31.0 pg 27.0 - 31.0 05/18/2011 Normal [facility] HEMATOLOGY MCV 91.9 fL 81.0 - 99.0 05/18/2011 Normal [facility] HEMATOLOGY WBC 8.0 K/CMM 3.7 - 10.4 05/18/2011 Normal [facility] CHEMISTRY Calcium Lvl 7.9 mg/dL 8.5 - 10.5 05/17/2011 LOW [facility] CHEMISTRY CO2 28.0 meq/L 24 - 32 05/17/2011 Normal [facility] CHEMISTRY Sodium Lvl 142.0 meq/L 135 - 145 05/17/2011 Normal [facility] CHEMISTRY Creatinine Lvl 1.0 mg/dL 0.5 - 1.4 05/17/2011 Normal [facility] CHEMISTRY Chloride Lvl 107.0 meq/L 95 - 109 05/17/2011 Normal [facility] CHEMISTRY Potassium Lvl 4.5 meq/L 3.5 - 5.1 05/17/2011 Normal [facility] CHEMISTRY Glucose Lvl 110.0 mg/dL 05/17/2011 NA 6Interpretive Data: Reference Ranges : 0 - 7 days : 41 - 90 mg/dL7 days - 150 yrs : 70 - 99 mg/dL (fasting), based on the clinical recommendations of the [place] [employer]. [facility] CHEMISTRY BUN 9.0 mg/dL 7 - 22 05/17/2011 Normal [facility] CHEMISTRY AGAP 11.5 meq/L 10.0 - 20.0 05/17/2011 Normal [facility] HEMATOLOGY WBC 6.5 K/CMM 3.7 - 10.4 05/17/2011 Normal [facility] HEMATOLOGY RBC 3.37 M/CMM 4.20 - 5.40 05/17/2011 LOW [facility] HEMATOLOGY Hct 31.3 % 36.0 - 48.0 05/17/2011 LOW [facility] HEMATOLOGY MCHC 32.1 g/dL 32.0 - 36.0 05/17/2011 Normal [facility] HEMATOLOGY MCV 92.9 fL 81.0 - 99.0 05/17/2011 Normal [facility] HEMATOLOGY MCH 29.8 pg 27.0 - 31.0 05/17/2011 Normal [facility] HEMATOLOGY Hgb 10.0 g/dL 12.0 - 16.0 05/17/2011 LOW [facility] HEMATOLOGY Platelet 212.0 K/CMM 133 - 450 05/17/2011 Normal [facility] HEMATOLOGY MPV 8.1 fL 7.4 - 10.4 05/17/2011 Normal [facility] HEMATOLOGY RDW 14.7 % 11.5 - 14.5 05/17/2011 HI [facility] BACTERIAL - SEROLOGY MRSA by PCR Negative 1 (05/11/2011 08:20:00) ?? 05/11/2011 Normal 1Interpretive Data: INTERPRETATION: Negative......No MRSA DNA detected by PCR Positive......MRSA DNA detected by PCRASSAY LIMITATIONS:This is a screening test for colonization by MRSA. A positive test result indicates the patient is colonized by MRSA, but does not necessarily mean that an infection is present or that treatment is necessary. Likewise, a negative test does not exclude colonization or infection. Patients should be evaluatedclinically for symptoms and signs of infection before making therapeutic decisions. Routine decolonization is discouraged and should only be considered for select patients after consultation with an infectious diseases specialist. [facility] BLOOD BANK RESULTS Antibody Scrn Negative (05/11/2011 08:20:00) ?? 05/11/2011 Normal [facility] BLOOD BANK RESULTS ABO/Rh O POS 05/11/2011 Unknown [facility] CHEMISTRY ALT 25.0 U/L 0 - 65 05/11/2011 Normal [facility] CHEMISTRY Total Protein 7.3 g/dL 6.4 - 8.4 05/11/2011 Normal [facility] CHEMISTRY Calcium Lvl 8.9 mg/dL 8.5 - 10.5 05/11/2011 Normal [facility] CHEMISTRY Albumin Lvl 3.9 g/dL 3.5 - 5.0 05/11/2011 Normal [facility] CHEMISTRY Chloride Lvl 103.0 meq/L 95 - 109 05/11/2011 Normal [facility] CHEMISTRY CO2 30.0 meq/L 24 - 32 05/11/2011 Normal [facility] CHEMISTRY AST 18.0 U/L 0 - 37 05/11/2011 Normal [facility] CHEMISTRY Bili Total 0.3 mg/dL 0.2 - 1.3 05/11/2011 Normal [facility] CHEMISTRY Alk Phos 49.0 U/L 39 - 136 05/11/2011 Normal [facility] CHEMISTRY BUN 13.0 mg/dL 7 - 22 05/11/2011 Normal [facility] CHEMISTRY Glucose Lvl 118.0 mg/dL 05/11/2011 NA 7Interpretive Data: Reference Ranges : 0 - 7 days : 41 - 90 mg/dL7 days - 150 yrs : 70 - 99 mg/dL (fasting), based on the clinical recommendations of the [place] [employer]. [facility] CHEMISTRY Creatinine Lvl 0.8 mg/dL 0.5 - 1.4 05/11/2011 Normal [facility] CHEMISTRY Potassium Lvl 4.3 meq/L 3.5 - 5.1 05/11/2011 Normal [facility] CHEMISTRY Sodium Lvl 141.0 meq/L 135 - 145 05/11/2011 Normal [facility] CHEMISTRY AGAP 12.3 meq/L 10.0 - 20.0 05/11/2011 Normal [facility] CHEMISTRY Globulin 3.4 g/dL 2.0 - 4.0 05/11/2011 Normal [facility] CHEMISTRY B/C Ratio 16.0 6 - 25 05/11/2011 Normal [facility] CHEMISTRY A/G Ratio 1.1 0.7 - 1.6 05/11/2011 Normal [facility] HEMATOLOGY Eosinophils 2.4 % 0.0 - 4.0 05/11/2011 Normal [facility] HEMATOLOGY Monocytes 8.2 % 2.0 - 12.0 05/11/2011 Normal [facility] HEMATOLOGY Monocytes # 0.5 K/CMM 0.0 - 0.8 05/11/2011 Normal [facility] HEMATOLOGY Eosinophils # 0.1 K/CMM 0.0 - 0.5 05/11/2011 Normal [facility] HEMATOLOGY Basophils # 0.0 K/CMM 0.0 - 0.2 05/11/2011 Normal [facility] HEMATOLOGY Lymphocytes # 2.0 K/CMM 1.0 - 5.5 05/11/2011 Normal [facility] HEMATOLOGY Segs-Bands # 3.3 K/CMM 1.5 - 8.1 05/11/2011 Normal [facility] HEMATOLOGY Basophils 0.6 % 0.0 - 1.0 05/11/2011 Normal [facility] HEMATOLOGY Segs 55.5 % 45.0 - 75.0 05/11/2011 Normal [facility] HEMATOLOGY Lymphocytes 33.3 % 20.0 - 40.0 05/11/2011 Normal [facility] HEMATOLOGY PTT 28.2 s 22.9 - 35.8 05/11/2011 Normal 9Interpretive Data: Heparin Therapeutic Range: 57 - 92 Seconds [facility] HEMATOLOGY PT 12.4 s 12.0 - 14.7 05/11/2011 Normal [facility] HEMATOLOGY INR 0.92 0.85 - 1.17 05/11/2011 Normal 8Interpretive Data: RECOMMENDED RANGES FOR PROTIME INR: 2.0-3.0 for most medical and surgical thromboembolic states. 2.5-3.5 for artificial heart valves and recurrent embolism.INR SHOULD BE USED ONLY FOR PATIENTS ON STABLE ANTICOAGULANT THERAPY. [facility] HEMATOLOGY MPV 8.7 fL 7.4 - 10.4 05/11/2011 Normal [facility] HEMATOLOGY RBC 3.96 M/CMM 4.20 - 5.40 05/11/2011 LOW [facility] HEMATOLOGY WBC 5.9 K/CMM 3.7 - 10.4 05/11/2011 Normal [facility] HEMATOLOGY Hct 36.6 % 36.0 - 48.0 05/11/2011 Normal [facility] HEMATOLOGY Hgb 11.9 g/dL 12.0 - 16.0 05/11/2011 LOW [facility] HEMATOLOGY RDW 14.7 % 11.5 - 14.5 05/11/2011 HI [facility] HEMATOLOGY Platelet 289.0 K/CMM 133 - 450 05/11/2011 Normal [facility] HEMATOLOGY MCV 92.4 fL 81.0 - 99.0 05/11/2011 Normal [facility] HEMATOLOGY MCHC 32.7 g/dL 32.0 - 36.0 05/11/2011 Normal [facility] HEMATOLOGY MCH 30.2 pg 27.0 - 31.0 05/11/2011 Normal [facility] URINALYSIS UA Ketones Negative mg/dL *NA* (05/11/2011 08:20:00) ?? >Negative 05/11/2011 NA [facility] URINALYSIS UA pH 7.0 5.0 - 8.0 05/11/2011 Normal [facility] URINALYSIS UA Glucose Negative mg/dL (05/11/2011 08:20:00) ?? >Negative 05/11/2011 Normal [facility] URINALYSIS UA Protein Negative mg/dL (05/11/2011 08:20:00) ?? >Negative 05/11/2011 Normal [facility] URINALYSIS UA Turbidity Clear (05/11/2011 08:20:00) ?? >Clear 05/11/2011 Normal [facility] URINALYSIS UA Spec Grav 1.015 <<=1.030 05/11/2011 Normal [facility] URINALYSIS UA Color Yellow *NA* (05/11/2011 08:20:00) ?? >Yellow 05/11/2011 NA [facility] URINALYSIS UA Nitrite Negative (05/11/2011 08:20:00) ?? >Negative 05/11/2011 Normal [facility] URINALYSIS UA Leuk Est Negative (05/11/2011 08:20:00) ?? >Negative 05/11/2011 Normal [facility] URINALYSIS UA Blood Negative (05/11/2011 08:20:00) ?? >Negative 05/11/2011 Normal [facility] URINALYSIS UA Urobilinogen 0.2 EU/dL 0.1 - 1.0 05/11/2011 Normal [facility] URINALYSIS UA Bili Negative *NA* (05/11/2011 08:20:00) ?? >Negative 05/11/2011 NA [facility] URINALYSIS UA RBC 0-2 /HPF (05/11/2011 08:20:00) ?? >0 - 2 05/11/2011 Normal [facility] URINALYSIS UA Mucus Rare /LPF (05/11/2011 08:20:00) ?? >None Seen 05/11/2011 Normal [facility] URINALYSIS UA Bacteria Occasional /HPF (05/11/2011 08:20:00) ?? >None Seen 05/11/2011 Normal [facility] URINALYSIS UA WBC 0-2 /HPF (05/11/2011 08:20:00) ?? >None Seen 05/11/2011 Normal [facility] URINALYSIS UA Sq Epi Occasional /LPF (05/11/2011 08:20:00) ?? >Few 05/11/2011 Normal [facility] Vital Signs Vital Sign Value Date Comments Source Systolic (mm Hg) 144 03/26/2017 [facility] Diastolic (mm Hg) 64 03/26/2017 [facility] Temperature Oral (F) 97.8 F 03/26/2017 [facility] Heart Rate 88 03/26/2017 [facility] Respitory Rate 18 03/26/2017 [facility] Heart Rate 78 03/26/2017 [facility] Temperature Oral (F) 97.5 F 03/26/2017 [facility] Respitory Rate 18 03/26/2017 [facility] Systolic (mm Hg) 150 03/26/2017 [facility] Diastolic (mm Hg) 77 03/26/2017 [facility] Respitory Rate 18 03/26/2017 [facility] Temperature Oral (F) 98.1 F 03/26/2017 [facility] Heart Rate 79 03/26/2017 [facility] Systolic (mm Hg) 135 03/26/2017 [facility] Diastolic (mm Hg) 73 03/26/2017 [facility] Height 152.4 cm 03/25/2017 [facility] BMI Calculated 28.77 03/25/2017 [facility] Weight 66.818 03/25/2017 [facility] Weight 67.727 03/25/2017 [facility] Heart Rate 132 03/14/2017 [facility] Systolic (mm Hg) 152 03/14/2017 [facility] Diastolic (mm Hg) 77 03/14/2017 [facility] Temperature Oral (F) 98.4 F 03/14/2017 [facility] Respitory Rate 20 03/14/2017 [facility] Heart Rate 102 03/14/2017 [facility] Systolic (mm Hg) 159 03/14/2017 [facility] Diastolic (mm Hg) 81 03/14/2017 [facility] Respitory Rate 20 03/14/2017 [facility] Temperature Oral (F) 98.3 F 03/14/2017 [facility] Temperature Oral (F) 98.1 F 03/14/2017 [facility] Heart Rate 97 03/14/2017 [facility] Systolic (mm Hg) 165 03/14/2017 [facility] Diastolic (mm Hg) 71 03/14/2017 [facility] Respitory Rate 20 03/14/2017 [facility] Height 150.5 cm 03/08/2017 [facility] BMI Calculated 31.81 03/08/2017 [facility] Weight 72.045 03/08/2017 [facility] Weight 158 02/20/2017 [facility] Height 60 02/20/2017 [facility] Heart Rate 80 02/20/2017 [facility] Cons Diastolic (mm Hg) 70 02/20/2017 [facility] Cons Systolic (mm Hg) 108 02/20/2017 [facility] Cons Systolic (mm Hg) 140 03/17/2016 [facility] Diastolic (mm Hg) 88 03/17/2016 [facility] Respitory Rate 20 03/17/2016 [facility] Heart Rate 86 03/17/2016 [facility] Temperature Oral (F) 98 F 03/17/2016 [facility] Systolic (mm Hg) 149 03/17/2016 [facility] Diastolic (mm Hg) 77 03/17/2016 [facility] Respitory Rate 20 03/17/2016 [facility] Heart Rate 75 03/17/2016 [facility] Temperature Oral (F) 98.4 F 03/17/2016 [facility] Systolic (mm Hg) 149 03/17/2016 [facility] Diastolic (mm Hg) 59 03/17/2016 [facility] Heart Rate 81 03/17/2016 [facility] Temperature Oral (F) 98.5 F 03/17/2016 [facility] Respitory Rate 20 03/17/2016 [facility] BMI Calculated 35.23 03/14/2016 [facility] Weight 81.818 03/14/2016 [facility] Height 152.4 cm 03/14/2016 [facility] Height 152.4 cm 03/13/2016 [facility] BMI Calculated 35.23 03/13/2016 [facility] Weight 81.818 03/13/2016 [facility] Weight 75.455 05/19/2012 [facility] Height 152.40 cm 05/19/2012 [facility] Diastolic (mm Hg) 46.0 05/26/2011 [facility] Systolic (mm Hg) 102.0 05/26/2011 [facility] Temperature Oral (F) 98.2 F 05/26/2011 [facility] Heart Rate 75.0 05/26/2011 [facility] Respitory Rate 18.0 05/26/2011 [facility] Systolic (mm Hg) 123.0 05/25/2011 [facility] Respitory Rate 20.0 05/25/2011 [facility] Temperature Oral (F) 98.1 F 05/25/2011 [facility] Heart Rate 91.0 05/25/2011 [facility] Diastolic (mm Hg) 66.0 05/25/2011 [facility] Respitory Rate 18.0 05/25/2011 [facility] Heart Rate 75.0 05/25/2011 [facility] Systolic (mm Hg) 126.0 05/25/2011 [facility] Temperature Oral (F) 97.5 F 05/25/2011 [facility] Diastolic (mm Hg) 58.0 05/25/2011 [facility] Weight 79.099 05/20/2011 [facility] Height 152.4 cm 05/20/2011 [facility] Weight 79.176 05/19/2011 [facility] Height 152.4 cm 05/19/2011 [facility] Respitory Rate 20.0 05/19/2011 [facility] Systolic (mm Hg) 96.0 05/19/2011 [facility] Peripheral Pulse Rate 70.0 05/19/2011 [facility] Diastolic (mm Hg) 55.0 05/19/2011 [facility] Temperature Oral (F) 97.3 F 05/19/2011 [facility] Diastolic (mm Hg) 51.0 05/19/2011 [facility] Systolic (mm Hg) 84.0 05/19/2011 [facility] Temperature Oral (F) 98.0 F 05/19/2011 [facility] Respitory Rate 20.0 05/19/2011 [facility] Peripheral Pulse Rate 91.0 05/19/2011 [facility] Respitory Rate 18.0 05/19/2011 [facility] Peripheral Pulse Rate 111.0 05/19/2011 [facility] Temperature Oral (F) 99.0 F 05/19/2011 [facility] Diastolic (mm Hg) 58.0 05/19/2011 [facility] Systolic (mm Hg) 107.0 05/19/2011 [facility] Weight 75.0 05/11/2011 [facility] Height 152.4 cm 05/11/2011 [facility] Encounters Location Location Details Encounter Type Encounter Number Reason For Visit Attending Provider ADM Date DC Date Status Source [facility] DS [id number] RT DISTAL URETERAL OBSTRUCTION WILBERT ABDULLAHI 01/04/2010 01/04/2010 Active [facility] Inpatient [id number] HARSHAL ROSS 05/16/2011 05/19/2011 Active [facility] IR [id number] BILATERAL KNEE ARTHRITIS NAGI GUTIERREZ 05/19/2011 05/26/2011 Active [facility] [id number] JAIME GARRIDO 05/19/2012 05/19/2012 Active [facility] [facility] [id number] NAVARRO COFFEY 08/14/2012 08/14/[address] [facility] Outpatient [id number] Lizzie Es 02/20/2014 02/21/2014 [facility] Inpatient [id number] Neidaindira Moy 03/13/2016 03/17/2016 [facility] Outpatient [id number] Stewart Weems 05/18/2016 05/19/2016 [facility] Outpatient [id number] Lizzie Es 07/21/2016 07/22/2016 [facility] Outpatient [id number] Stewart Weems 09/07/2016 09/08/2016 [facility] Outpatient [id number] Lizzie Suggs 09/25/2016 09/26/2016 [facility] Outpatient [id number] Lizzie Suggs 11/20/2016 11/21/2016 [facility] Bedded Outpatient [id number] Corie Cameron 03/13/2017 03/14/2017 [facility] Observation [id number] Ayad Nguyen 03/25/2017 03/26/2017 [facility] Outpatient [id number] CHANGE IN BOWEL HABITS, ABDOMINAL PAIN LIZZIE SUGGS Active [facility] Procedures Procedure Code Date Perfomer Comments Source MRI of brain [id number] 03/14/2016 [facility] Knee replacement [id number] 03/14/2014 [facility] Bunionectomy [id number] 03/14/2001 [facility] Cataract surgery [id number] [facility] Cholecystectomy [id number] [facility] Hand repair [id number] [facility] Shoulder repair [id number] [facility] Uterus excision [id number] [facility] Hysterectomy [id number] [facility] Laparoscopic repair of inguinal hernia<sup>1</sup> [id number] hiatal hernia [facility]
--- OUTSIDE RECORDS SUMMARY | 2018-06-18 11:04 | XMS REPORT | Summary of Care ---
Author Author [facility] Organization [facility] Address Unknown Phone Unavailable Encounter HQ Nathalie(JAMES) [id number] Date(s): 03/13/17 - 03/14/17 [facility] [address] [place] [address]- [phone] Discharge Disposition: Home or Self Care Attending Physician: Corie Cameron MD Referring Physician: Corie Cameron MD Vital Signs 1 2 3 Most recent to oldest [Reference Range]: 150.5 cm (03/08/17 4:52 PM) Height 98.4 DegF (03/14/17 12:15 PM) 98.3 DegF (03/14/17 6:30 AM) 98.1 DegF (03/14/17 3:00 AM) Temperature Oral [96.4-99.1 DegF] 152/77 mmHg *HI* (03/14/17 12:15 PM) 159/81 mmHg *HI* (03/14/17 6:30 AM) 165/71 mmHg *HI* (03/14/17 3:00 AM) Blood Pressure [90-140/60-90 mmHg] 20 BRMIN (03/14/17 12:15 PM) 20 BRMIN (03/14/17 6:30 AM) 20 BRMIN (03/14/17 3:00 AM) Respiratory Rate [14-20 BRMIN] 132 bpm *HI* (03/14/17 12:15 PM) 102 bpm *HI* (03/14/17 6:30 AM) 97 bpm (03/14/17 3:00 AM) Peripheral Pulse Rate [60-100 bpm] 72.045 kg (03/08/17 4:52 PM) Weight 31.81 m2 (03/08/17 4:52 PM) Body Mass Index Problem List Condition Effective Dates Status Health Status Informant Anemia(Confirmed) Active Attention to 06/05/11 Active prosthetic replacement of articulation of bone1 Diabetes Active mellitus(Confirmed) Diabetes(Confirmed) Active Diverticulitis(Confi Resolved rmed) Esophageal Resolved hernia(Confirmed) GERD - Active Gastro-esophageal reflux disease(Confirmed) Acid Active reflux(Confirmed) Hypercholesteremia(C Active onfirmed) Hypercholesterolemia Active (Confirmed) Knee 05/16/11 Active replacement(Confirme d)2 Hernia, Active hiatal(Confirmed) Osteoarthritis of 02/06/11 Active knee3 Pain(Confirmed) Active Peripheral Active neuropathy(Confirmed ) 1Data migrated from [employer] on 01/30/15. 2right total knee replacement 3Data migrated from [employer] on 01/30/15. Allergies, Adverse Reactions, Alerts Substance Reaction Severity Status NKDA Active Medications acetaminophen (ANES) Route: IV, Drug form: INJ, ONCE, Stop date: 03/12/17 12:06:00 CDT Start Date: 03/12/17 Stop Date: 03/12/17 Status: Completed albuterol-ipratropium 2.5-0.5 mg inhalation solution 3 mL, Route: NEB, Drug Form: SOLN, Dosing Weight 72.045, kg, ONCE, STAT, Start d ate: 03/12/17 7:20:00 CDT, Stop date: 03/12/17 7:20:00 CDT Notes: (Same as: Deyanira) Start Date: 03/12/17 Stop Date: 03/12/17 Status: Discontinued Amaryl 4 mg oral tablet 4 mg=1 tab, PO, BID, # 30 tab, 0 Refill(s) Start Date: 03/08/17 Status: Ordered ANES albuterol 0.083% inhalation solution 2.49 mg, 3 mL, Route: NEB, Drug form: SOLN, Q20Min, Dosing Weight 72.045, kg, ND N Wheezing, Priority: STAT, Start date: 03/12/17 16:36:00 CDT, Duration: 30 day, Stop date: 04/11/17 16:35:00 CDT Notes: SEE RT DOCUMENTATION (Same as: Xochitl) Start Date: 03/12/17 Stop Date: 03/12/17 Status: Discontinued ANES diphenhydrAMINE 12.5 mg, 0.25 mL, Route: IVP, Drug form: INJ, Q6H, Dosing Weight 72.045, kg, PRN Itching, Start date: 03/12/17 16:36:00 CDT, Duration: 30 day, Stop date: 16:35:00 CDT Notes: (Same as: Benadryl) Start Date: 03/12/17 Stop Date: 03/12/17 Status: Discontinued ANES esmolol 10 mg, 1 mL, Route: IVP, Drug form: INJ, Q5Min, Dosing Weight 72.045, kg, PRN Ot her -See Comment, Start date: 03/12/17 16:36:00 CDT, Duration: 5 doses or times, Stop date: Limited # of times Notes: (Same as: Brevibloc) Start Date: 03/12/17 Stop Date: 03/12/17 Status: Discontinued ANES fentaNYL 25 microgram, 0.5 mL, Route: IVP, Drug form: INJ, Q5Min, Dosing Weight 72.045, k g, PRN Pain Score 4-6, Priority: Routine, Start date: 03/12/17 16:36:00 CDT, Dur ation: 4 doses or times, Stop date: Limited # of times Notes: (Same as: Sublimaze) Preservative free. Start Date: 03/12/17 Stop Date: 03/12/17 Status: Discontinued ANES flumazenil 0.2 mg, 2 mL, Route: IVP, Drug form: INJ, PRN, Dosing Weight 72.045, kg, PRN Madi zodiazepine Reversal, Initial dose, Start date: 03/12/17 16:36:00 CDT, Duration: 30 day, Stop date: 04/11/17 16:35:00 CDT Notes: (Same as: Romazicon) Start Date: 03/12/17 Stop Date: 03/12/17 Status: Discontinued ANES hydrALAZINE 10 mg, 0.5 mL, Route: IVP, Drug form: INJ, Q20Min, Dosing Weight 72.045, kg, PRN Elevated BP, Start date: 03/12/17 16:36:00 CDT, Duration: 2 doses or times, Stop date: Limited # of times Notes: (Same as: Apresoline)Push over 5 minutes Start Date: 03/12/17 Stop Date: 03/12/17 Status: Discontinued ANES labetalol 10 mg, 2 mL, Route: IVP, Drug form: INJ, Q5Min, Dosing Weight 72.045, kg, PRN El evated BP, Start date: 03/12/17 16:36:00 CDT, Duration: 5 doses or times, Stop d ate: Limited # of times Start Date: 03/12/17 Stop Date: 03/12/17 Status: Discontinued ANES meperidine 12.5 mg, 0.5 mL, Route: IVP, Drug form: INJ, Q30Min, Dosing Weight 72.045, kg, P RN Other -See Comment, For shivering, Start date: 03/12/17 16:36:00 CDT, Duratio n: 2 doses or times, Stop date: Limited # of times Notes: (Same as: Demerol) "Use Precaution in Elderly, Seizure disorders, and Re nal impairment" Start Date: 03/12/17 Stop Date: 03/12/17 Status: Discontinued ANES morphine Sulfate 4 mg, 1 mL, Route: IVP, Drug form: INJ, Q5Min, Dosing Weight 72.045, kg, PRN Elyssa n Score 7-10, Start date: 03/12/17 16:36:00 CDT, Duration: 3 doses or times, Sto p date: Limited # of times Notes: (Same as:MORPhine Sulfate) Start Date: 03/12/17 Stop Date: 03/12/17 Status: Discontinued ANES naloxone 0.4 mg, 1 mL, Route: IVP, Drug form: INJ, Q2MIN, Dosing Weight 72.045, kg, PRN N arcotic Reversal, Start date: 03/12/17 16:36:00 CDT, Duration: 8 doses or times, Stop date: Limited # of times Notes: Same as Narcan Start Date: 03/12/17 Stop Date: 03/12/17 Status: Discontinued ANES ondansetron 4 mg, 2 mL, Route: IVP, Drug form: INJ, ONCE, Dosing Weight 72.045, kg, PRN Naus ea & Vomiting, Start date: 03/12/17 16:36:00 CDT Notes: (Same as: Barron) MEDICATION WASTE Product Size: 4 mgProduct Was casie: ___ mg Start Date: 03/12/17 Stop Date: 03/12/17 Status: Discontinued ANES promethazine + sodium chloride 0.9% INJ 50 mL 6.25 mg, 0.25 mL, Route: IVPB, ONCE, Dosing Weight 72.045, kg, PRN Nausea & Vomiting, Start date: 03/12/17 16:36:00 CDT Notes: Do not give IV push. (Same as: Phenergan) Start Date: 03/12/17 Stop Date: 03/12/17 Status: Discontinued B Complex 100 1 tab, PO, Daily, 0 Refill(s) Start Date: 03/08/17 Status: Ordered cefOXitin (SCIP) + sodium chloride 0.9% INJ 100 mL 2 gm, Route: IVPB, [id number], Dosing Weight 72.045, kg, Start date: 03/12/17 18:00 :00 CDT, Duration: 24 hr, Stop date: 03/13/17 6:00:00 CDT, ABX Indication: Surgi jacquelyn Prophylaxis Notes: (Same As: Mefoxin) MEDICATION WASTE Product Size: 2000 mgProduct Wasted: ___ mg Start Date: 03/12/17 Stop Date: 03/13/17 Status: Completed Chloraseptic 1.4% spray 1 spray, Route: TOP, Daily, Drug form: SPRY, PRN Sore Throat, Start date: 14:27:00 CDT, Duration: 30 day, Stop date: 04/12/17 14:26:00 CDT Notes: Chloraseptic [place](Same as: Chloraseptic, Sore Throat [place])WASTE: F/P - Black; E - Municipal Trash Bin Start Date: 03/13/17 Stop Date: 03/14/17 Status: Discontinued Colace 100 mg oral capsule 100 mg, 1 cap, Route: PO, Drug form: CAP, BID, Dosing Weight 72.045, kg, Start d ate: 03/14/17 9:00:00 CDT, Duration: 30 day, Stop date: 04/12/17 17:00:00 CDT Notes: (Same as: Colace) (Do Not Crush) Start Date: 03/14/17 Stop Date: 03/14/17 Status: Discontinued Dextrose 50% in Water IV 50 mL, Route: IVP, Start date: 03/13/17 12:42:00 CDT, Duration: 30 day, Stop armando e: 04/12/17 12:41:00 CDT, PRN Blood Glucose Results Start Date: 03/13/17 Stop Date: 03/14/17 Status: Discontinued Dextrose 50% in Water IV 25 mL, Route: IVP, Start date: 03/13/17 12:42:00 CDT, Duration: 30 day, Stop armando e: 04/12/17 12:41:00 CDT, PRN Blood Glucose Results Start Date: 03/13/17 Stop Date: 03/14/17 Status: Discontinued enoxaparin 40 mg, 0.4 mL, Route: SUB-Q, Drug form: INJ, [id number], Dosing Weight 72.045, kg, Start date: 03/13/17 8:00:00 CDT, Duration: 30 day, Stop date: 04/11/17 8:00:00 CDT Notes: (Same as: Lovenox) Start Date: 03/13/17 Stop Date: 03/14/17 Status: Discontinued famotidine (ANES) Route: IV, Drug form: INJ, ONCE, Stop date: 03/12/17 11:41:00 CDT Start Date: 03/12/17 Stop Date: 03/12/17 Status: Completed fentaNYL (ANES) Route: IV, Drug form: INJ, ONCE, Stop date: 03/12/17 11:51:00 CDT Start Date: 03/12/17 Stop Date: 03/12/17 Status: Completed fentaNYL (ANES) Route: IV, Drug form: INJ, ONCE, Stop date: 03/12/17 12:38:00 CDT Start Date: 03/12/17 Stop Date: 03/12/17 Status: Completed gabapentin 300 mg oral capsule 300 mg=1 cap, PO, QAM, 0 Refill(s) Start Date: 03/08/17 Status: Ordered glycopyrrolate (ANES) Route: IV, Drug form: INJ, ONCE, Stop date: 03/12/17 15:29:00 CDT Start Date: 03/12/17 Stop Date: 03/12/17 Status: Completed insulin aspart 2 unit, 0.02 mL, Route: SUB-Q, Drug form: SOLN, Sliding Scale, PRN Blood Glucose Results, Start date: 03/13/17 12:41:00 CDT, Duration: 30 day, Stop date: 12:40:00 CDT Notes: Roll in palms of hands gently; Do not shake vigorously. (Same as: NovoDOUGLAS Meza)"single patient use only"WASTE: F/P - Black; E - Municipal Trash Bin Stable f or 28 days at room temperature.Expires in days from Date Start Date: 03/13/17 Stop Date: 03/14/17 Status: Discontinued insulin aspart 10 unit, 0.1 mL, Route: SUB-Q, Drug form: SOLN, Sliding Scale, PRN Blood Glucose Results, Start date: 03/13/17 12:42:00 CDT, Duration: 30 day, Stop date: 12:41:00 CDT Notes: Roll in palms of hands gently; Do not shake vigorously. (Same as: NovoDOUGLAS Meza)"single patient use only"WASTE: F/P - Black; E - Municipal Trash Bin Stable f or 28 days at room temperature.Expires in days from Date Start Date: 03/13/17 Stop Date: 03/14/17 Status: Discontinued insulin aspart 8 unit, 0.08 mL, Route: SUB-Q, Drug form: SOLN, Sliding Scale, PRN Blood Glucose Results, Start date: 03/13/17 12:41:00 CDT, Duration: 30 day, Stop date: 12:40:00 CDT Notes: Roll in palms of hands gently; Do not shake vigorously. (Same as: NovoDOUGLAS Meza)"single patient use only"WASTE: F/P - Black; E - Municipal Trash Bin Stable f or 28 days at room temperature.Expires in days from Date Start Date: 03/13/17 Stop Date: 03/14/17 Status: Discontinued insulin aspart 5 unit, 0.05 mL, Route: SUB-Q, Drug form: SOLN, Sliding Scale, PRN Blood Glucose Results, Start date: 03/13/17 12:41:00 CDT, Duration: 30 day, Stop date: 12:40:00 CDT Notes: Roll in palms of hands gently; Do not shake vigorously. (Same as: NovoLO G)"single patient use only"WASTE: F/P - Black; E - Municipal Trash Bin Stable f or 28 days at room temperature.Expires in days from Date Start Date: 03/13/17 Stop Date: 03/14/17 Status: Discontinued insulin aspart 3 unit, 0.03 mL, Route: SUB-Q, Drug form: SOLN, Sliding Scale, PRN Blood Glucose Results, Start date: 03/13/17 12:41:00 CDT, Duration: 30 day, Stop date: 12:40:00 CDT Notes: Roll in palms of hands gently; Do not shake vigorously. (Same as: Kalpesh Meza)"single patient use only"WASTE: F/P - Black; E - Municipal Trash Bin Stable f or 28 days at room temperature.Expires in days from Date Start Date: 03/13/17 Stop Date: 03/14/17 Status: Discontinued Janumet XR 50 mg-1000 mg oral tablet, extended release 1 tab, PO, BID-Meals, # 60 tab, 3 Refill(s) Start Date: 03/08/17 Status: Ordered Lactated Ringers 1,000 mL 1,000 mL, Rate: 125 ml/hr, Infuse over: 8 hr, Route: IV, Dosing Weight 72.045 kg , Total Volume: 1,000, Start date: 03/12/17 16:01:00 CDT, Duration: 30 day, Stop date: 04/11/17 16:00:00 CDT Start Date: 03/12/17 Stop Date: 03/14/17 Status: Discontinued Lactated Ringers 1,000 mL 1,000 mL, Rate: 125 ml/hr, Infuse over: 8 hr, Route: IV, Dosing Weight 72.045 kg , Total Volume: 1,000, Start date: 03/12/17 16:36:00 CDT, Duration: 30 day, Stop date: 04/11/17 16:35:00 CDT Start Date: 03/12/17 Stop Date: 03/12/17 Status: Discontinued Lactated Ringers 1,000 mL 1,000 mL, Rate: 25 ml/hr, Infuse over: 40 hr, Route: IV, Dosing Weight 72.045 kg , Total Volume: 1,000, Start date: 03/12/17 7:20:00 CDT, Duration: 1 day, Stop d ate: 03/13/17 7:19:00 CDT Start Date: 03/12/17 Stop Date: 03/12/17 Status: Discontinued lidocaine (ANES) Route: IV, Drug form: INJ, ONCE, Stop date: 03/12/17 11:46:00 CDT Start Date: 03/12/17 Stop Date: 03/12/17 Status: Completed Lipitor 40 mg oral tablet 40 mg=1 tab, PO, Bedtime, # 30 tab, 0 Refill(s) Start Date: 03/08/17 Status: Ordered LR 1000 mL INJ (ANES) Route: IV, Total Volume: 1,000, Start date: 03/12/17 10:45:00 CDT, Stop date: 11:45:00 CDT Start Date: 03/12/17 Stop Date: 03/12/17 Status: Completed magnesium sulfate 4 gm / 100 mL solution 4 gm, 100 mL, Route: IVPB, Drug form: INJ, ONCE, Dosing Weight 72.045, kg, Start date: 03/14/17 10:54:00 CDT, Duration: 2 hr, Stop date: 03/14/17 10:54:00 CDT Notes: WASTE: F/P - Sink; E - Municipal Trash Bin Start Date: 03/14/17 Stop Date: 03/14/17 Status: Completed metoclopramide (ANES) Route: IV, Drug form: INJ, ONCE, Stop date: 03/12/17 11:41:00 CDT Start Date: 03/12/17 Stop Date: 03/12/17 Status: Completed morphine Sulfate 2 mg, 1 mL, Route: IVP, Drug form: INJ, ONCE, Dosing Weight 72.045, kg, Start da te: 03/12/17 16:42:00 CDT, Stop date: 03/12/17 16:42:00 CDT Notes: (Same as:MORPhine Sulfate) Start Date: 03/12/17 Stop Date: 03/12/17 Status: Completed morphine Sulfate 4 mg, 1 mL, Route: IVP, Drug form: INJ, Q3H, Dosing Weight 72.045, kg, PRN Pain Score 4-6, Start date: 03/12/17 16:01:00 CDT, Duration: 30 day, Stop date: 04/11 16:00:00 CDT Notes: (Same as:MORPhine Sulfate) Start Date: 03/12/17 Stop Date: 03/14/17 Status: Discontinued morphine Sulfate (ANES) Route: IV, Drug form: INJ, ONCE, Stop date: 03/12/17 15:29:00 CDT Start Date: 03/12/17 Stop Date: 03/12/17 Status: Completed neostigmine (ANES) Route: IV, Drug form: INJ, ONCE, Stop date: 03/12/17 15:29:00 CDT Start Date: 03/12/17 Stop Date: 03/12/17 Status: Completed norepinephrine (ANES) Route: IV, Drug form: INJ, ONCE, Stop date: 03/12/17 11:56:00 CDT Start Date: 03/12/17 Stop Date: 03/12/17 Status: Completed norepinephrine (ANES) Route: IV, Drug form: INJ, ONCE, Stop date: 03/12/17 12:23:00 CDT Start Date: 03/12/17 Stop Date: 03/12/17 Status: Completed omeprazole 40 mg oral delayed release capsule 40 mg=1 cap, PO, Daily, # 30 cap, 0 Refill(s) Start Date: 03/08/17 Status: Ordered ondansetron 4 mg, 2 mL, Route: IVP, Drug form: INJ, Q6H, Dosing Weight 72.045, kg, PRN Nause a & Vomiting, Start date: 03/12/17 16:01:00 CDT, Duration: 30 day, Stop date: 04/11/17 16:00:00 CDT Notes: (Same as: Barron) MEDICATION WASTE Product Size: 4 mgProduct Was casie: ___ mg Start Date: 03/12/17 Stop Date: 03/14/17 Status: Discontinued ondansetron (ANES) Route: IV, Drug form: INJ, ONCE, Stop date: 03/12/17 15:29:00 CDT Start Date: 03/12/17 Stop Date: 03/12/17 Status: Completed pantoprazole 40 mg, 1 tab, Route: PO, Drug form: ECTAB, Daily, Dosing Weight 72.045, kg, Star t date: 03/13/17 9:00:00 CDT, Duration: 30 day, Stop date: 04/11/17 9:00:00 CDT Notes: Tablet should not be chewed or crushed.(Same as: Protonix) Start Date: 03/13/17 Stop Date: 03/14/17 Status: Discontinued piperacillin-tazobactam (ANES) (ANES) Route: IV, Drug form: INJ, Start date: 03/12/17 10:50:00 CDT, Stop date: 7 11:50:00 CDT Start Date: 03/12/17 Stop Date: 03/12/17 Status: Completed potassium chloride 20 mEq oral tablet, extended release 20 mEq, 1 tab, Route: PO, Drug form: ERTAB, ONCE, Dosing Weight 72.045, kg, Star t date: 03/14/17 10:59:00 CDT, Stop date: 03/14/17 10:59:00 CDT Notes: (Same as: K-Dur 20)"Do Not Crush" With food and full glass of water Start Date: 03/14/17 Stop Date: 03/14/17 Status: Completed propofol (ANES) Route: IV, Drug form: INJ, ONCE, Stop date: 03/12/17 11:51:00 CDT Start Date: 03/12/17 Stop Date: 03/12/17 Status: Completed Reglan 10 mg, 2 mL, Route: IVP, Drug form: INJ, Q6H, Dosing Weight 72.045, kg, Start da te: 03/13/17 18:00:00 CDT, Duration: 30 day, Stop date: 04/12/17 12:00:00 CDT Notes: (Same as: Reglan) Start Date: 03/13/17 Stop Date: 03/14/17 Status: Discontinued Tylenol 650 mg, 20.3 mL, Route: PO, Drug form: LIQ, Q6H, PRN Pain Score 1-3, Start date: 03/13/17 12:27:00 CDT, Duration: 30 day, Stop date: 04/12/17 12:26:00 CDT Start Date: 03/13/17 Stop Date: 03/14/17 Status: Discontinued Tylenol 650 mg, 2 tab, Route: PO, Drug form: TAB, Q6H, Dosing Weight 72.045, kg, PRN Elyssa n Score 1-3, Start date: 03/13/17 11:11:00 CDT, Duration: 30 day, Stop date: 06/19 11:10:00 CDT Notes: Do not exceed 4 gm/day. (Same as: Tylenol) Start Date: 03/13/17 Stop Date: 03/13/17 Status: Deleted Tylenol with Codeine 120 mg-12 mg/5 mL oral liquid 15 ml, Route: PO, Drug Form: LIQ, Dosing Weight 72.045, kg, Q6H, PRN Pain Score 1-3, Start date: 03/13/17 20:34:00 CDT, Duration: 30 day, Stop date: 04/12/17 20 :33:00 CDT Notes: (acetaminophen-codeine 120-12 mg/5 ml oral liq) Do not exceed 4gm/day of acetaminophen. (Same as: Tylenol w/Codeine) Start Date: 03/13/17 Stop Date: 03/14/17 Status: Discontinued vecuronium (ANES) Route: IV, Drug form: INJ, ONCE, Stop date: 03/12/17 11:51:00 CDT Start Date: 03/12/17 Stop Date: 03/12/17 Status: Completed Vitamin D2 50,000 intl units oral capsule 50,000 IntlUnit=1 cap, PO, every other week, 0 Refill(s) Start Date: 03/08/17 Status: Ordered Results ELECTROLYTES 1 2 3 Most recent to oldest [Reference Range]: 140 mEq/L (03/14/17 6:56 AM) 140 mEq/L (03/13/17 7:05 AM) 141 mEq/L (7/6/17 4:55 PM) Sodium Lvl [135-145 mEq/L] 3.4 mEq/L *LOW* (03/14/17 6:56 AM) 3.8 mEq/L (03/13/17 7:05 AM) 4.5 mEq/L (03/08/17 4:55 PM) Potassium Lvl [3.5-5.1 mEq/L] 102 mEq/L (03/14/17 6:56 AM) 103 mEq/L (03/13/17 7:05 AM) 107 mEq/L (03/08/17 4:55 PM) Chloride Lvl [95-109 mEq/L] 29 mEq/L (03/14/17 6:56 AM) 29 mEq/L (03/13/17 7:05 AM) 23 mEq/L *LOW* (03/08/17 4:55 PM) CO2 [24-32 mEq/L] 12.4 mEq/L (03/14/17 6:56 AM) 11.8 mEq/L (03/13/17 7:05 AM) 15.5 mEq/L (03/08/17 4:55 PM) AGAP [10.0-20.0 mEq/L] CHEM PANEL 1 2 3 Most recent to oldest [Reference Range]: 0.78 mg/dL (03/14/17 6:56 AM) 0.85 mg/dL (03/13/17 7:05 AM) 1.07 mg/dL (03/08/17 4:55 PM) Creatinine Lvl [0.50-1.40 mg/dL] 77 mL/min/1.73m2 1 *NA* (03/14/17 6:56 AM) 69 mL/min/1.73m2 2 *NA* (03/13/17 7:05 AM) 52 mL/min/1.73m2 3 *NA* (03/08/17 4:55 PM) eGFR 5 mg/dL *LOW* (03/14/17 6:56 AM) 8 mg/dL (03/13/17 7:05 AM) 11 mg/dL (03/08/17 4:55 PM) BUN [7-22 mg/dL] 9 (03/13/17 7:05 AM) B/C Ratio [6-25] 208 mg/dL *HI* (03/14/17 6:56 AM) 159 mg/dL *HI* (03/13/17 7:05 AM) 75 mg/dL (03/08/17 4:55 PM) Glucose Lvl [70-99 mg/dL] 6.2 g/dL *LOW* (03/13/17 7:05 AM) Total Protein [6.4-8.4 g/dL] 3.1 g/dL *LOW* (03/13/17 7:05 AM) Albumin Lvl [3.5-5.0 g/dL] 3.1 g/dL (03/13/17 7:05 AM) Globulin [2.7-4.2 g/dL] 1.0 (03/13/17 7:05 AM) A/G Ratio [0.7-1.6] 8.2 mg/dL *LOW* (03/14/17 6:56 AM) 8.2 mg/dL *LOW* (03/13/17 7:05 AM) 8.2 mg/dL *LOW* (03/08/17 4:55 PM) Calcium Lvl [8.5-10.5 mg/dL] 1.3 mg/dL *LOW* (03/14/17 6:56 AM) 1.1 mg/dL *LOW* (03/13/17 7:05 AM) Magnesium Lvl [1.8-2.4 mg/dL] 443 unit/L *HI* (03/13/17 7:05 AM) ALT [0-65 unit/L] 534 unit/L *HI* (03/13/17 7:05 AM) AST [0-37 unit/L] 58 unit/L (03/13/17 7:05 AM) Alk Phos [39-136 unit/L] 0.6 mg/dL (03/13/17 7:05 AM) Bili Total [0.2-1.3 mg/dL] 1Result Comment: The eGFR is calculated using the [...] from the National Kid[employer] Disease Education Program ( NKDEP) which additionally recommends that when the eGFR is used in patients with extremes of body mass index for purposes of drug dosing, the eGFR should be mul tiplied by the estimated BMI. 2Result Comment: The eGFR is calculated using the [...] from the National Kid[employer] Education Program ( NKDEP) which additionally recommends that when the eGFR is used in patients with extremes of body mass index for purposes of drug dosing, the eGFR should be mul tiplied by the estimated BMI. 3Result Comment: The eGFR is calculated using the [...] from the National Kid[employer] Disease Education Program ( NKDEP) which additionally recommends that when the eGFR is used in patients with extremes of body mass index for purposes of drug dosing, the eGFR should be mul tiplied by the estimated BMI. SPECIAL CHEMISTRY 1 2 3 Most recent to oldest [Reference Range]: 7.3 % *HI* (03/13/17 7:05 AM) Hgb A1C [<=5.6 %] HEMATOLOGY 1 2 3 Most recent to oldest [Reference Range]: 10.6 K/CMM *HI* (03/14/17 6:56 AM) 7.4 K/CMM (03/13/17 7:05 AM) 7.2 K/CMM (03/08/17 4:55 PM) WBC [3.7-10.4 K/CMM] 3.24 M/CMM *LOW* (03/14/17 6:56 AM) 3.35 M/CMM *LOW* (03/13/17 7:05 AM) 3.58 M/CMM *LOW* (03/08/17 4:55 PM) RBC [4.20-5.40 M/CMM] 11.4 g/dL *LOW* (03/14/17 6:56 AM) 11.5 g/dL *LOW* (03/13/17 7:05 AM) 12.4 g/dL (03/08/17 4:55 PM) Hgb [12.0-16.0 g/dL] 32.3 % *LOW* (03/14/17 6:56 AM) 33.7 % *LOW* (03/13/17 7:05 AM) 36.2 % (03/08/17 4:55 PM) Hct [36.0-48.0 %] 99.7 fL *HI* (03/14/17 6:56 AM) 100.6 fL *HI* (03/13/17 7:05 AM) 101.1 fL *HI* (03/08/17 4:55 PM) MCV [80.0-98.0 fL] 35.1 pg *HI* (03/14/17 6:56 AM) 34.4 pg *HI* (03/13/17 7:05 AM) 34.6 pg *HI* (03/08/17 4:55 PM) MCH [27.0-31.0 pg] 35.2 g/dL (03/14/17 6:56 AM) 34.2 g/dL (03/13/17 7:05 AM) 34.2 g/dL (03/08/17 4:55 PM) MCHC [32.0-36.0 g/dL] 13.3 % (03/14/17 6:56 AM) 13.3 % (03/13/17 7:05 AM) 13.3 % (03/08/17 4:55 PM) RDW [11.5-14.5 %] 114 K/CMM *LOW* (03/14/17 6:56 AM) 128 K/CMM *LOW* (03/13/17 7:05 AM) 201 K/CMM (03/08/17 4:55 PM) Platelet [133-450 K/CMM] 8.5 fL (03/14/17 6:56 AM) 8.3 fL (03/13/17 7:05 AM) 8.7 fL (03/08/17 4:55 PM) MPV [7.4-10.4 fL] 85.9 % *HI* (03/14/17 6:56 AM) 79.8 % *HI* (03/13/17 7:05 AM) 56.6 % (03/08/17 4:55 PM) Segs [45.0-75.0 %] 7.5 % *LOW* (03/14/17 6:56 AM) 12.1 % *LOW* (03/13/17 7:05 AM) 32.4 % (03/08/17 4:55 PM) Lymphocytes [20.0-40.0 %] 5.7 % (03/14/17 6:56 AM) 7.2 % (03/13/17 7:05 AM) 8.1 % (03/08/17 4:55 PM) Monocytes [2.0-12.0 %] 0.8 % (03/14/17 6:56 AM) 0.7 % (03/13/17 7:05 AM) 2.3 % (03/08/17 4:55 PM) Eosinophils [0.0-4.0 %] 0.1 % (03/14/17 6:56 AM) 0.2 % (03/13/17 7:05 AM) 0.6 % (03/08/17 4:55 PM) Basophils [0.0-1.0 %] 9.1 K/CMM *HI* (03/14/17 6:56 AM) 5.9 K/CMM (03/13/17 7:05 AM) 4.1 K/CMM (03/08/17 4:55 PM) Segs-Bands # [1.5-8.1 K/CMM] 0.8 K/CMM *LOW* (03/14/17 6:56 AM) 0.9 K/CMM *LOW* (03/13/17 7:05 AM) 2.3 K/CMM (03/08/17 4:55 PM) Lymphocytes # [1.0-5.5 K/CMM] 0.6 K/CMM (03/14/17 6:56 AM) 0.5 K/CMM (03/13/17 7:05 AM) 0.6 K/CMM (03/08/17 4:55 PM) Monocytes # [0.0-0.8 K/CMM] 0.1 K/CMM (03/14/17 6:56 AM) 0.1 K/CMM (03/13/17 7:05 AM) 0.2 K/CMM (03/08/17 4:55 PM) Eosinophils # [0.0-0.5 K/CMM] 1+ *ABN* (03/14/17 6:56 AM) 1+ *ABN* (03/13/17 7:05 AM) 1+ *ABN* (03/08/17 4:55 PM) Macrocyte [None Seen] 12.8 seconds (03/08/17 4:55 PM) PT [12.0-14.7 seconds] 0.94 (03/08/17 4:55 PM) INR [0.85-1.17] 27.1 seconds (03/08/17 4:55 PM) PTT [22.9-35.8 seconds] Immunizations Given and Recorded Vaccine Date Status Refusal Reason pneumococcal 23-valent vaccine 05/17/11 Given Not Given Vaccine Date Status Refusal Reason pneumococcal 13-valent vaccine 03/14/17 Not Given Patient Refuses Procedures Procedure Date Related Diagnosis Body Site MRI of brain 03/14/16 Knee replacement 03/14/14 Bunionectomy 03/14/01 Cataract surgery Cholecystectomy Hand repair Hysterectomy Laparoscopic repair of inguinal hernia1 Shoulder repair Uterus excision 1hiatal hernia Social History Social History Type Response Substance Abuse Use: None. Alcohol Never Smoking Status Never smoker; Ready to change: No; Concerns about tobacco use in household: No; Exposure to Tobacco Smoke None; Cigarette Smoking Last 365 Days No; Reg Smoking Cessation Counseling No Assessment and Plan Extracted from: Title: Progress Note * Author: Corie Cameron MD Date: 03/13/17 Impression and Plan Diagnosis: Patient with laparoscopic repair of large hiatal hernia not ready to be discharged Admit per case management P.o. stool softener Elixir Tylenol with codeine as needed for pain. Orders Admit per case management. Repeat CBC BMP in a.m.. The patient was seen and examined by me with the resident/TAILINGS MAN/PA and I agree with the History/Exam documented.
--- OUTSIDE RECORDS SUMMARY | 2018-06-18 11:04 | XMS REPORT | Summary of Care ---
Author Author [facility] Organization [facility] Address Unknown Phone Unavailable Encounter HQ Nathalie(JAMES) [id number] Date(s): 03/24/17 - 03/26/17 [facility] [address] [place] [address]- Discharge Disposition: Home or Self Care Attending Physician: Ayad Nguyen MD Admitting Physician: Ayad Nguyen MD Vital Signs 1 2 3 Most recent to oldest [Reference Range]: 152.4 cm (03/25/17 2:47 AM) Height 97.8 DegF (03/26/17 11:00 AM) 97.5 DegF (03/26/17 6:59 AM) 98.1 DegF (03/26/17 4:20 AM) Temperature Oral [96.4-99.1 DegF] 144/64 mmHg *HI* (03/26/17 11:00 AM) 150/77 mmHg *HI* (03/26/17 6:59 AM) 135/73 mmHg (03/26/17 4:20 AM) Blood Pressure [90-140/60-90 mmHg] 18 BRMIN (03/26/17 11:00 AM) 18 BRMIN (03/26/17 6:59 AM) 18 BRMIN (03/26/17 4:20 AM) Respiratory Rate [14-20 BRMIN] 88 bpm (03/26/17 11:00 AM) 78 bpm (03/26/17 6:59 AM) 79 bpm (03/26/17 4:20 AM) Peripheral Pulse Rate [60-100 bpm] 66.818 kg (03/25/17 2:47 AM) 67.727 kg (03/24/17 8:58 PM) Weight 28.77 m2 (03/25/17 2:47 AM) Body Mass Index Problem List Condition Effective [...] Peripheral Active neuropathy(Confirmed ) 1Data migrated from [employer] on 01/30/15. 2right total knee replacement 3Data migrated from [employer] on 01/30/15. Allergies, Adverse Reactions, Alerts Substance Reaction Severity Status NKDA Active Medications acetaminophen 650 mg, 2 tab, Route: PO, Drug form: TAB, Q4H, Dosing Weight 67.727, kg, PRN Elyssa n 1-3/Temp > 100.4 F, Start date: 03/25/17 2:07:00 CDT, Duration: 30 day, Stop date: 04/24/17 2:06:00 CDT Notes: Do not exceed 4 gm/day. (Same as: Tylenol) Start Date: 03/25/17 Stop Date: 03/26/17 Status: Discontinued cefTRIAXone + sodium chloride 0.9% INJ 100 mL 1 gm, Route: IVPB, Drug form: PDR/INJ, [id number], Dosing Weight 67.727, kg, Start date: 03/25/17 2:00:00 CDT, Duration: 10 day, Stop date: 04/03/17 2:00:00 CDT, A BX Indication: Infectious Diarrhea Notes: (Same As: Rocephin).Use with 100 mL NS and infuse over 30 min MEDICA TION WASTE Product Size: 1000 mgProduct Wasted: ___ mg Start Date: 03/25/17 Stop Date: 03/26/17 Status: Discontinued Cipro 400 mg, 200 mL, Route: IVPB, Drug form: INJ, ONCE, Dosing Weight 67.727, kg, Dara ority: STAT, Start date: 03/24/17 22:40:00 CDT, Duration: 1 doses or times, Stop date: 03/24/17 22:40:00 CDT, ABX Indication: Urinary Tract Infection Notes: Do not refrigerate Start Date: 03/24/17 Stop Date: 03/24/17 Status: Completed Cipro 500 mg oral tablet 500 mg=1 tab, PO, Q12H, for UTI, X 3 day, # 6 tab, 0 Refill(s), Pharmacy: [facility] #[id number] Start Date: 03/26/17 Stop Date: 03/29/17 Status: Ordered Dextrose 50% Syringe 12.5 gm, 25 mL, Route: IVP, Drug Form: INJ, Dosing Weight 66.818, kg, PRN, PRN B lood Glucose Results, Start date: 03/25/17 6:41:00 CDT, Duration: 30 day, Stop d ate: 04/24/17 6:40:00 CDT Start Date: 03/25/17 Stop Date: 03/26/17 Status: Discontinued Dextrose 50% Syringe 25 gm, 50 mL, Route: IVP, Drug Form: INJ, Dosing Weight 66.818, kg, PRN, PRN Blo od Glucose Results, Start date: 03/25/17 6:41:00 CDT, Duration: 30 day, Stop armando e: 04/24/17 6:40:00 CDT Start Date: 03/25/17 Stop Date: 03/26/17 Status: Discontinued Flagyl 500 mg, 100 mL, Route: IVPB, Drug form: INJ, ONCE, Dosing Weight 67.727, kg, Dara ority: STAT, Start date: 03/25/17 1:07:00 CDT, Duration: 1 doses or times, Stop date: 03/25/17 1:07:00 CDT, ABX Indication: Intra-abdominal Infection Notes: (Same as: Flagyl) Avoid alcohol. Start Date: 03/25/17 Stop Date: 03/25/17 Status: Completed Flagyl 500 mg oral tablet 500 mg=1 tab, PO, Q8H, X 7 day, # 21 tab, 0 Refill(s), Pharmacy: [facility]/pharmacy #[id number] Start Date: 03/26/17 Stop Date: 04/02/17 Status: Ordered glucagon 1 mg, Route: IM, Drug form: PDR/INJ, PRN, Dosing Weight 66.818, kg, PRN Blood Gl ucose Results, Start date: 03/25/17 6:41:00 CDT, Duration: 30 day, Stop date: 6:40:00 CDT Start Date: 03/25/17 Stop Date: 03/26/17 Status: Discontinued heparin 5,000 unit, 1 mL, Route: SUB-Q, Drug form: INJ, Q12H, Dosing Weight 66.818, kg, Start date: 03/25/17 9:00:00 CDT, Duration: 30 day, Stop date: 04/23/17 21:00:00 CDT Notes: porcine heparin Start Date: 03/25/17 Stop Date: 03/26/17 Status: Discontinued insulin aspart 4 unit, 0.04 mL, Route: SUB-Q, Drug form: SOLN, Sliding Scale, Dosing Weight 66. 818, kg, PRN Blood Glucose Results, Start date: 03/25/17 6:41:00 CDT, Duration: 30 day, Stop date: 04/24/17 6:40:00 CDT Notes: Roll in palms of hands gently; Do not shake vigorously. (Same as: Kalpesh Meza)"single patient use only"WASTE: F/P - Black; E - Municipal Trash Bin Stable f or 28 days at room temperature.Expires in days from Date Start Date: 03/25/17 Stop Date: 03/26/17 Status: Discontinued insulin aspart 6 unit, 0.06 mL, Route: SUB-Q, Drug form: SOLN, Sliding Scale, Dosing Weight 66. 818, kg, PRN Blood Glucose Results, Start date: 03/25/17 6:41:00 CDT, Duration: 30 day, Stop date: 04/24/17 6:40:00 CDT Notes: Roll in palms of hands gently; Do not shake vigorously. (Same as: Kalpesh Meza)"single patient use only"WASTE: F/P - Black; E - Municipal Trash Bin Stable f or 28 days at room temperature.Expires in days from Date Start Date: 03/25/17 Stop Date: 03/26/17 Status: Discontinued insulin aspart 8 unit, 0.08 mL, Route: SUB-Q, Drug form: SOLN, Sliding Scale, Dosing Weight 66. 818, kg, PRN Blood Glucose Results, Start date: 03/25/17 6:41:00 CDT, Duration: 30 day, Stop date: 04/24/17 6:40:00 CDT Notes: Roll in palms of hands gently; Do not shake vigorously. (Same as: Kalpesh Meza)"single patient use only"WASTE: F/P - Black; E - Municipal Trash Bin Stable f or 28 days at room temperature.Expires in days from Date Start Date: 03/25/17 Stop Date: 03/26/17 Status: Discontinued insulin aspart 10 unit, 0.1 mL, Route: SUB-Q, Drug form: SOLN, Sliding Scale, Dosing Weight 66. 818, kg, PRN Blood Glucose Results, Start date: 03/25/17 6:41:00 CDT, Duration: 30 day, Stop date: 04/24/17 6:40:00 CDT Notes: Roll in palms of hands gently; Do not shake vigorously. (Same as: Kalpesh Meza)"single patient use only"WASTE: F/P - Black; E - Municipal Trash Bin Stable f or 28 days at room temperature.Expires in days from Date Start Date: 03/25/17 Stop Date: 03/26/17 Status: Discontinued insulin aspart 2 unit, 0.02 mL, Route: SUB-Q, Drug form: SOLN, Sliding Scale, Dosing Weight 66. 818, kg, PRN Blood Glucose Results, Start date: 03/25/17 6:41:00 CDT, Duration: 30 day, Stop date: 04/24/17 6:40:00 CDT Notes: Roll in palms of hands gently; Do not shake vigorously. (Same as: Kalpesh Meza)"single patient use only"WASTE: F/P - Black; E - Municipal Trash Bin Stable f or 28 days at room temperature.Expires in days from Date Start Date: 03/25/17 Stop Date: 03/26/17 Status: Discontinued magnesium oxide 400 mg, 1 tab, Route: PO, Drug form: TAB, Daily, Dosing Weight 66.818, kg, Start date: 03/26/17 9:00:00 CDT, Duration: 30 day, Stop date: 04/24/17 9:00:00 CDT Notes: (Same as: Mag-Ox 400)Magnesium oxide [id number] elemental magnesiumDose= ____mg magnesium oxide (___mg elemental magnesium) Start Date: 03/26/17 Stop Date: 03/26/17 Status: Discontinued magnesium sulfate 2 gm in Water 50 ml 2 gm, 50 mL, Route: IV, Drug form: INJ, ONCE, Dosing Weight 66.818, kg, Priority : Routine, Start date: 03/25/17 6:39:00 CDT, Stop date: 03/25/17 6:39:00 CDT Notes: WASTE: F/P - Sink; E - Municipal Trash Bin Start Date: 03/25/17 Stop Date: 03/25/17 Status: Completed metroNIDAZOLE 500 mg, 100 mL, Route: IVPB, Drug form: INJ, ABXQ8H, Dosing Weight 67.727, kg, S tart date: 03/25/17 9:00:00 CDT, Duration: 10 day, Stop date: 04/04/17 1:00:00 C DT, ABX Indication: Infectious Diarrhea Notes: (Same as: Flagyl) Avoid alcohol. Start Date: 03/25/17 Stop Date: 03/26/17 Status: Discontinued morphine Sulfate 2 mg, 1 mL, Route: IVP, Drug form: INJ, Q4H, Dosing Weight 67.727, kg, PRN Pain Score 7-10, Start date: 03/25/17 2:07:00 CDT, Duration: 30 day, Stop date: 04/24 2:06:00 CDT Notes: (Same as:MORPhine Sulfate) Start Date: 03/25/17 Stop Date: 03/26/17 Status: Discontinued morphine Sulfate 2 mg, 1 mL, Route: IVP, Drug form: INJ, ONCE, Dosing Weight 67.727, kg, Priority : STAT, Start date: 03/24/17 21:12:00 CDT, Stop date: 03/24/17 21:12:00 CDT Notes: (Same as:MORPhine Sulfate) Start Date: 03/24/17 Stop Date: 03/24/17 Status: Completed NS (Bolus) IV 1,000 mL, 1,000 ml/hr, Infuse Over: 1 hr, Route: IV, 1,000, Drug form: INJ, ONCE , Priority: STAT, Dosing Weight 67.727 kg, Start date: 03/24/17 21:12:00 CDT, Du ration: 1 doses or times, Stop date: 03/24/17 21:12:00 CDT Start Date: 03/24/17 Stop Date: 03/24/17 Status: Completed Saline Flush 0.9% 10 ml, Route: IVP, Drug Form: INJ, Dosing Weight 67.727, kg, PRN, PRN Line Flush , Start date: 03/25/17 2:07:00 CDT, Duration: 30 day, Stop date: 04/24/17 2:06:0 0 CDT Notes: Same as: BD Posiflush Sterile Start Date: 03/25/17 Stop Date: 03/26/17 Status: Discontinued sodium chloride 0.9% 1000 ml INJ 1,000 mL 1,000 mL, Rate: 100 ml/hr, Infuse over: 10 hr, Route: IV, Dosing Weight 67.727 k g, Total Volume: 1,000, Start date: 03/25/17 2:07:00 CDT, Duration: 1 day, Stop date: 03/26/17 2:06:00 CDT Start Date: 03/25/17 Stop Date: 03/26/17 Status: Completed sodium chloride 0.9% 1000 ml INJ 1,000 mL 1,000 mL, Rate: 125 ml/hr, Infuse over: 8 hr, Route: IV, Dosing Weight 67.727 kg , Total Volume: 1,000, Start date: 03/25/17 0:33:00 CDT, Duration: 30 day, Stop date: 04/24/17 0:32:00 CDT Start Date: 03/25/17 Stop Date: 03/25/17 Status: Discontinued Zofran 4 mg, 2 mL, Route: IVP, Drug form: INJ, ONCE, Dosing Weight 67.727, kg, Priority : STAT, Start date: 03/24/17 21:13:00 CDT, Stop date: 03/24/17 21:13:00 CDT Notes: (Same as: Zofran) MEDICATION WASTE Product Size: 4 mgProduct Was casie: ___ mg Start Date: 03/24/17 Stop Date: 03/24/17 Status: Completed Zofran 4 mg, 2 mL, Route: IV, Drug form: INJ, Q4H, Dosing Weight 67.727, kg, PRN as nee ded for nausea/vomiting, Start date: 03/25/17 1:09:00 CDT, Duration: 30 day, Sto p date: 04/24/17 1:08:00 CDT Notes: (Same as: Zofran) MEDICATION WASTE Product Size: 4 mgProduct Was casie: ___ mg Start Date: 03/25/17 Stop Date: 03/26/17 Status: Discontinued Results ELECTROLYTES Most recent to 1 2 oldest [Reference Range]: Sodium Lvl [135-145 141 mEq/L 138 mEq/L mEq/L] (03/25/17 4:01 AM) (03/24/17 9:32 PM) Potassium Lvl 3.7 mEq/L 4.0 mEq/L [3.5-5.1 mEq/L] (03/25/17 4:01 AM) (03/24/17 9:32 PM) Chloride Lvl [95-109 109 mEq/L 104 mEq/L mEq/L] (03/25/17 4:01 AM) (03/24/17 9:32 PM) CO2 [24-32 mEq/L] 22 mEq/L 21 mEq/L *LOW* *LOW* (03/25/17 4:01 AM) (03/24/17 9:32 PM) AGAP [10.0-20.0 13.7 mEq/L 17.0 mEq/L mEq/L] (03/25/17 4:01 AM) (03/24/17 9:32 PM) CHEM PANEL Most recent to 1 2 oldest [Reference Range]: Creatinine Lvl 1.26 mg/dL 1.79 mg/dL [0.50-1.40 mg/dL] (03/25/17 4:01 AM) *HI* (03/24/17 9:32 PM) eGFR 43 mL/min/1.73m2 1 28 mL/min/1.73m2 2 *NA* *NA* (03/25/17 4:01 AM) (03/24/17 9:32 PM) BUN [7-22 mg/dL] 20 mg/dL 26 mg/dL (03/25/17 4:01 AM) *HI* (03/24/17 9:32 PM) B/C Ratio [6-25] 15 (03/24/17 9:32 PM) Glucose Lvl [70-99 90 mg/dL 142 mg/dL mg/dL] (03/25/17 4:01 AM) *HI* (03/24/17 9:32 PM) Total Protein 8.2 g/dL [6.4-8.4 g/dL] (03/24/17 9:32 PM) Albumin Lvl [3.5-5.0 3.2 g/dL g/dL] *LOW* (03/24/17 9:32 PM) Globulin [2.7-4.2 5.0 g/dL g/dL] *HI* (03/24/17 9:32 PM) A/G Ratio [0.7-1.6] 0.6 *LOW* (03/24/17 9:32 PM) Calcium Lvl 7.4 mg/dL 9.4 mg/dL [8.5-10.5 mg/dL] *LOW* (03/24/17 9:32 PM) (03/25/17 4:01 AM) Phosphorus [2.5-4.5 2.7 mg/dL mg/dL] (03/25/17 4:01 AM) Magnesium Lvl 1.4 mg/dL [1.8-2.4 mg/dL] *LOW* (03/25/17 4:01 AM) ALT [0-65 unit/L] 40 unit/L (03/24/17 9:32 PM) AST [0-37 unit/L] 25 unit/L (03/24/17 9:32 PM) Alk Phos [39-136 84 unit/L unit/L] (03/24/17 9:32 PM) Bili Total [0.2-1.3 0.4 mg/dL mg/dL] (03/24/17 9:32 PM) Lipase Lvl [73-393 472 unit/L unit/L] *HI* (03/24/17 9:32 PM) 1Result Comment: The eGFR is calculated using [...] be mul tiplied by the estimated BMI. URINE AND STOOL Most recent to 1 2 oldest [Reference Range]: UA Turbidity [Clear] Slight Cloudy (03/24/17 9:32 PM) UA Color [Yellow] Yellow *NA* (03/24/17 9:32 PM) UA pH [5.0-8.0] 5.5 (03/24/17 9:32 PM) UA Spec Grav 1.025 [<=1.030] (03/24/17 9:32 PM) UA Glucose Negative [Negative] (03/24/17 9:32 PM) UA Blood [Negative] Trace *ABN* (03/24/17 9:32 PM) UA Ketones Trace [Negative] *ABN* (03/24/17 9:32 PM) UA Protein [Negative 100 mg/dL mg/dL] *ABN* (03/24/17 9:32 PM) UA Urobilinogen 0.2 EU/dL [0.1-1.0 EU/dL] (03/24/17 9:32 PM) UA Bili [Negative] Small 1 *ABN* (03/24/17 9:32 PM) UA Leuk Est Moderate [Negative] *ABN* (03/24/17 9:32 PM) UA Nitrite Negative [Negative] (03/24/17 9:32 PM) UA WBC [None Seen 11-20 /HPF /HPF] *ABN* (03/24/17 9:32 PM) UA RBC [0-2 /HPF] 0-2 /HPF (03/24/17 9:32 PM) UA Bacteria [None Moderate /HPF Seen /HPF] (03/24/17 9:32 PM) UA Sq Epi [Few /LPF] Moderate /LPF *ABN* (03/24/17 9:32 PM) UA Mucus [None Seen Few /LPF /LPF] (03/24/17 9:32 PM) Micro? Performed (03/24/17 9:32 PM) Fecal Leukocyte None Seen (03/26/17 9:22 AM) 1Result Comment: Interpret positive bilirubin results with caution. Confirmatory testing not possible due to the unavailability of reagent. Correlation with serum chemistry results recommended. HEMATOLOGY Most recent to 1 2 oldest [Reference Range]: WBC [3.7-10.4 K/CMM] 10.7 K/CMM 13.1 K/CMM *HI* *HI* (03/25/17 4:01 AM) (03/24/17 9:32 PM) RBC [4.20-5.40 3.17 M/CMM 3.78 M/CMM M/CMM] *LOW* *LOW* (03/25/17 4:01 AM) (03/24/17 9:32 PM) Hgb [12.0-16.0 g/dL] 10.8 g/dL 12.5 g/dL *LOW* (03/24/17 9:32 PM) (03/25/17 4:01 AM) Hct [36.0-48.0 %] 31.0 % 36.9 % *LOW* (03/24/17 9:32 PM) (03/25/17 4:01 AM) MCV [80.0-98.0 fL] 97.9 fL 97.6 fL (03/25/17 4:01 AM) (03/24/17 9:32 PM) MCH [27.0-31.0 pg] 34.1 pg 33.1 pg *HI* *HI* (03/25/17 4:01 AM) (03/24/17:32 PM) MCHC [32.0-36.0 34.9 g/dL 34.0 g/dL g/dL] (03/25/17 4:01 AM) (03/24/17 9:32 PM) RDW [11.5-14.5 %] 13.1 % 12.9 % (03/25/17 4:01 AM) (03/24/17 9:32 PM) Platelet [133-450 365 K/CMM 427 K/CMM K/CMM] (03/25/17 4:01 AM) (03/24/17 9:32 PM) MPV [7.4-10.4 fL] 8.3 fL 8.5 fL (03/25/17 4:01 AM) (03/24/17 9:32 PM) Segs [45.0-75.0 %] 66.3 % 77.8 % (03/25/17 4:01 AM) *HI* (03/24/17 9:32 PM) Lymphocytes 23.7 % 14.7 % [20.0-40.0 %] (03/25/17 4:01 AM) *LOW* (03/24/17 9:32 PM) Monocytes [2.0-12.0 6.9 % 5.4 % %] (03/25/17 4:01 AM) (03/24/17 9:32 PM) Eosinophils [0.0-4.0 2.6 % 1.5 % %] (03/25/17 4:01 AM) (03/24/17 9:32 PM) Basophils [0.0-1.0 0.5 % 0.6 % %] (03/25/17 4:01 AM) (03/24/17 9:32 PM) Segs-Bands # 7.1 K/CMM 10.2 K/CMM [1.5-8.1 K/CMM] (03/25/17 4:01 AM) *HI* (03/24/17 9:32 PM) Lymphocytes # 2.5 K/CMM 1.9 K/CMM [1.0-5.5 K/CMM] (03/25/17 4:01 AM) (03/24/17 9:32 PM) Monocytes # [0.0-0.8 0.7 K/CMM 0.7 K/CMM K/CMM] (03/25/17 4:01 AM) (03/24/17 9:32 PM) Eosinophils # 0.3 K/CMM 0.2 K/CMM [0.0-0.5 K/CMM] (03/25/17 4:01 AM) (03/24/17 9:32 PM) Basophils # [0.0-0.2 0.1 K/CMM 0.1 K/CMM K/CMM] (03/25/17 4:01 AM) (03/24/17 9:32 PM) MOLECULAR DIAGNOSTIC Most recent to 1 2 oldest [Reference Range]: C difficile DNA Negative [Negative] (03/26/17 10:03 AM) Immunizations Given and Recorded Vaccine Date Status [...] Smoking Cessation Counseling No Assessment and Plan No data available for this section
--- OUTSIDE RECORDS SUMMARY | 2018-06-18 11:05 | XMS REPORT | Summary of Care ---
Author Author [facility] Organization [facility] Address Unknown Phone Unavailable Encounter EILEEN Zelaya(JAMES) [id number] Date(s): 07/21/16 - 07/21/16 [facility] [address] [place] [address]- Discharge Disposition: Home or Self Care Attending Physician: Milena Suggs MD Referring Physician: Milena Suggs MD Vital Signs No data available for this section Problem List Condition Effective Dates Status Health Status Informant Attention to 06/05/11 Active prosthetic replacement of articulation of bone1 Diabetes Active mellitus(Confirmed) Diabetes(Confirmed) Resolved Diverticulitis(Confi Resolved rmed) Esophageal Resolved hernia(Confirmed) GERD - Active Gastro-esophageal reflux disease(Confirmed) Hypercholesteremia(C Resolved onfirmed) Hypercholesterolemia Active (Confirmed) Knee 05/16/11 Active replacement(Confirme d)2 Osteoarthritis of 02/06/11 Active knee3 Pain(Confirmed) Active 1Data migrated from [employer] on 01/30/15. 2right total knee replacement 3Data migrated from [employer] on 01/30/15. 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 Immunizations Given and Recorded Vaccine Date Status Refusal Reason pneumococcal 23-valent vaccine 05/17/11 Given Procedures Procedure Date Related Diagnosis Body Site MRI of brain 03/14/16 Knee replacement 03/14/14 Bunionectomy 03/14/01 Cataract surgery Cholecystectomy Hand repair Shoulder repair Uterus excision Social History Social History Type Response Substance Abuse Use: None. Alcohol Never Smoking Status Never smoker; Ready to change: No; Concerns about tobacco use in household: No; Exposure to Tobacco Smoke None; Cigarette Smoking Last 365 Days No; Reg Smoking Cessation Counseling No Assessment and Plan No data available for this section
--- OUTSIDE RECORDS SUMMARY | 2018-06-18 11:05 | XMS REPORT | Summary of Care ---
Author Organization Unknown Address Unknown Phone Unavailable Encounter HQ Encntr_alireagan(FIN) [id number] Date(s): 02/20/14 - 02/20/[address] Discharge Disposition: Home Physician Attending: Milena Suggs MD Physician_Referring: Milena Suggs MD Reason for Visit LEFT LOWER QUAD ABDOMINAL PAIN Problem List Condition Effective Dates Status Health Status Informant Diabetes Active mellitus(Confirmed) GERD - Active Gastro-esophageal reflux disease(Confirmed) Hypercholesterolemia Active (Confirmed) Knee 05/16/11 Active replacement(Confirme d)1 Pain(Confirmed) Active 1right total knee replacement Allergies, Adverse Reactions, Alerts Substance Reaction Severity Status NKDA Active Medications No data available for this section Medications Administered During Your Visit No data available for this section Immunizations Vaccine Date Refusal Reason pneumococcal 23-valent vaccine 05/17/11 Social History Social History Type Response
--- OUTSIDE RECORDS SUMMARY | 2018-06-18 11:05 | XMS REPORT | Summary of Care ---
Author Author [facility] Organization [facility] Address Unknown Phone Unavailable Encounter HQ Nathalie(JAMES) [id number] Date(s): 09/25/16 - 09/25/16 [facility] [address] [place] [address]- [phone] Discharge Disposition: Home or Self Care Attending [...] Medications No data available for this section Results No data available for this section Immunizations Given and Recorded Vaccine Date Status [...]
--- OUTSIDE RECORDS SUMMARY | 2018-06-18 11:05 | XMS REPORT | Summary of Care ---
Author Author [facility] Organization [facility] Address Unknown Phone Unavailable Encounter EILEEN Zelaya(JAMES) [id number] Date(s): 05/18/16 - 05/18/16 [facility] [address] [place] [address]- [phone] Discharge Disposition: Home or Self Care Attending Physician: Stewart Weems MD Admitting Physician: Stewart Weems MD Vital Signs No data available for this section Problem List Condition Effective Dates Status Health Status Informant Attention to 06/05/11 Active prosthetic replacement of articulation of bone1 Diabetes(Confirmed) Resolved Diabetes Active mellitus(Confirmed) Diverticulitis(Confi Resolved rmed) Esophageal Resolved hernia(Confirmed) GERD [...]
--- OUTSIDE RECORDS SUMMARY | 2018-06-18 11:05 | XMS REPORT | Summary of Care ---
Author Author [facility] Organization [facility] Address Unknown Phone Unavailable Encounter HQ Nathalie(JAMES) [id number] Date(s): 03/13/16 - 03/17/16 [facility] [address] [place] [address]- Discharge Disposition: Home Attending Physician: Neida Moy MD Admitting Physician: Neida Moy MD Vital Signs 1 2 3 Most recent to oldest [Reference Range]: 152.4 cm (03/14/16 1:25 AM) 152.4 cm (03/13/16 6:23 PM) Height 98 DegF (03/17/16 11:19 AM) 98.4 DegF (03/17/16 7:42 AM) 98.5 DegF (03/17/16 3:38 AM) Temperature Oral [96.4-99.1 DegF] 140/88 mmHg (03/17/16 11:19 AM) 149/77 mmHg *HI* (03/17/16 7:42 AM) 149/59 mmHg *HI* (03/17/16 3:38 AM) Blood Pressure [90-140/60-90 mmHg] 20 BRMIN (03/17/16 11:19 AM) 20 BRMIN (03/17/16 7:42 AM) 20 BRMIN (03/17/16 3:38 AM) Respiratory Rate [14-20 BRMIN] 86 bpm (03/17/16 11:19 AM) 75 bpm (03/17/16 7:42 AM) 81 bpm (03/17/16 3:38 AM) Peripheral Pulse Rate [60-100 bpm] 81.818 kg (03/14/16 1:25 AM) 81.818 kg (03/13/16 6:23 PM) Weight 35.23 m2 (03/14/16 1:25 AM) 35.23 m2 (03/13/16 6:23 PM) Body Mass Index Problem List Condition [...] TAB, Q4H, Dosing Weight 81.818, kg, PRN Elyssa n 1-3/Temp > 100.4 F, Start date: 03/14/16 0:32:00 CDT, Duration: 30 day, Stop date: 04/13/16 0:31:00 CDT Notes: Do not exceed 4 gm/day. (Same as: Tylenol) Start Date: 03/14/16 Stop Date: 03/14/16 Status: Discontinued acetaminophen 650 mg, 2 tab, Route: PO, Drug form: TAB, Q4H, Dosing Weight 81.818, kg, PRN Elyssa n 1-3/Temp > 100.4 F, Start date: 03/14/16 1:44:00 CDT, Duration: 30 day, Stop date: 04/13/16 1:43:00 CDT Notes: Do not exceed 4 gm/day. (Same as: Tylenol) Start Date: 03/14/16 Stop Date: 03/17/16 Status: Discontinued acetaminophen-hydrocodone 325 mg-5 mg oral tablet 1 tab, Route: PO, Drug Form: TAB, Dosing Weight 81.818, kg, Q4H, PRN Pain Score 4-6, Start date: 03/14/16 0:32:00 CDT, Duration: 30 day, Stop date: 04/13/16 0:3 1:00 CDT Notes: (Same as: [place] 325/5) Do not exceed 4gm/day of acetaminophen. Start Date: 03/14/16 Stop Date: 03/14/16 Status: Discontinued acetaminophen-hydrocodone 325 mg-5 mg oral tablet 1 tab, Route: PO, Drug Form: TAB, Dosing Weight 81.818, kg, Q4H, PRN Pain Score 4-6, Start date: 03/14/16 1:44:00 CDT, Duration: 30 day, Stop date: 04/13/16 1:4 3:00 CDT Notes: (Same as: [place] 325/5) Do not exceed 4gm/day of acetaminophen. Start Date: 03/14/16 Stop Date: 03/17/16 Status: Discontinued aspirin 325 mg tablet, enteric coated 325 mg, 1 tab, Route: PO, Drug form: ECTAB, Daily, Dosing Weight 81.818, kg, Dara ority: NOW, Start date: 03/14/16 2:10:00 CDT, Duration: 30 day, Stop date: 04/12 9:00:00 CDT Notes: (Do Not Crush) Do not crush or chew. Start Date: 03/14/16 Stop Date: 03/17/16 Status: Discontinued Calcium 600 +D oral tablet 1 tab, PO, Daily, 0 Refill(s) Start Date: 03/14/16 Status: Ordered cefepime + sodium chloride 0.9% INJ 100 mL 1 gm, Route: IVPB, Drug form: INJ, [id number], Dosing Weight 81.818, kg, (CrCl >/=50 ml/min), Start date: 03/14/16 23:00:00 CDT, Duration: 30 day, Stop date: 15:00:00 CDT Notes: (Same As: Maxipime) MEDICATION WASTE Product Size: 1000 mgProduc t Wasted: ___ mg Start Date: 03/14/16 Stop Date: 03/16/16 Status: Discontinued cefTRIAXone + sodium chloride 0.9% INJ 100 mL 1 gm, Route: IVPB, Drug form: PDR/INJ, Daily, Dosing Weight 81.818, kg, Priority : STAT, Start date: 03/13/16 22:35:00 CDT, Duration: 30 day, Stop date: 04/12/16 9:00:00 CDT Notes: (Same As: Rocephin).Use with 100 mL NS and infuse over 30 min MEDICA TION WASTE Product Size: 1000 mgProduct Wasted: ___ mg Start Date: 03/13/16 Stop Date: 03/14/16 Status: Discontinued ciprofloxacin 500 mg, 1 tab, Route: PO, Drug form: TAB, [id number], Dosing Weight 81.818, kg, Sta rt date: 03/16/16 18:00:00 CDT, Duration: 10 day, Stop date: 03/26/16 6:00:00 CD T Notes: May interfere w/enteral feedings - Take 1 hr before or 2 hrs after anta cids, dairy pdt & minerals. On empty stomach. Start Date: 03/16/16 Stop Date: 03/17/16 Status: Discontinued ciprofloxacin 500 mg oral tablet 500 mg=1 tab, PO, [id number], X 10 day, # 20 tab, 0 Refill(s) Start Date: 03/17/16 Stop Date: 03/27/16 Status: Ordered Citracal + D 315 mg-250 intl units oral tablet 1 tab, Route: PO, Drug Form: TAB, Dosing Weight 81.818, kg, BID, Start date: 9:00:00 CDT, Duration: 30 day, Stop date: 04/15/16 17:00:00 CDT Notes: (Same As: Citracal Caplets Plus D) Start Date: 03/17/16 Stop Date: 03/17/16 Status: Discontinued Dextrose 50% Syringe 25 gm, 50 mL, Route: IVP, Drug Form: INJ, Dosing Weight 81.818, kg, PRN, PRN Blo od Glucose Results, Start date: 03/14/16 2:12:00 CDT, Duration: 30 day, Stop armando e: 04/13/16 2:11:00 CDT Start Date: 03/14/16 Stop Date: 03/17/16 Status: Discontinued Dextrose 50% Syringe 12.5 gm, 25 mL, Route: IVP, Drug Form: INJ, Dosing Weight 81.818, kg, PRN, PRN B lood Glucose Results, Start date: 03/14/16 2:12:00 CDT, Duration: 30 day, Stop d ate: 04/13/16 2:11:00 CDT Start Date: 03/14/16 Stop Date: 03/17/16 Status: Discontinued docusate 100 mg, 1 cap, Route: PO, Drug form: CAP, BID, Dosing Weight 81.818, kg, PRN Con stipation, Start date: 03/14/16 1:44:00 CDT, Duration: 30 day, Stop date: 1:43:00 CDT Notes: (Same as: Colace) (Do Not Crush) Start Date: 03/14/16 Stop Date: 03/17/16 Status: Discontinued enoxaparin 40 mg, 0.4 mL, Route: SUB-Q, Drug form: INJ, [id number], Dosing Weight 81.818, kg, Start date: 03/14/16 2:00:00 CDT, Duration: 30 day, Stop date: 04/12/16 2:00:00 CDT Notes: (Same as: Lovenox) Start Date: 03/14/16 Stop Date: 03/17/16 Status: Discontinued esomeprazole 40 mg, PO, Daily, 0 Refill(s) Start Date: 03/14/16 Status: Ordered ferrous sulfate 325 mg, PO, TID, 0 Refill(s) Start Date: 03/14/16 Status: Ordered gabapentin 100 mg oral capsule 200 mg=2 cap, PO, TID, 0 Refill(s) Start Date: 03/14/16 Status: Ordered glucagon 1 mg, Route: IM, Drug form: PDR/INJ, PRN, Dosing Weight 81.818, kg, PRN Blood Gl ucose Results, Start date: 03/14/16 2:12:00 CDT, Duration: 30 day, Stop date: 2:11:00 CDT Start Date: 03/14/16 Stop Date: 03/17/16 Status: Discontinued ibuprofen 400 mg oral tablet 400 mg, 1 tab, Route: PO, Drug form: TAB, Q4H, Dosing Weight 81.818, kg, PRN See Nurse's Notes, Start date: 03/16/16 17:28:00 CDT, Duration: 30 day, Stop date: 04/15/16 17:27:00 CDT, Headache 4-10 Notes: (Same as: Azam)"Do Not Crush" Give with food. Start Date: 03/16/16 Stop Date: 03/17/16 Status: Discontinued insulin aspart 8 unit, 0.08 mL, Route: SUB-Q, Drug form: SOLN, TID-Before Meals, Dosing Weight 81.818, kg, PRN Blood Glucose Results, Start date: 03/14/16 2:12:00 CDT, Duratio n: 30 day, Stop date: 04/13/16 2:11:00 CDT Notes: Roll in palms of hands gently; Do not shake vigorously. (Same as: Kalpesh Meza)"single patient use only"WASTE: F/P - Black; E - Municipal Trash Bin Stable f or 28 days at room temperature.Expires in days from Date Start Date: 03/14/16 Stop Date: 03/17/16 Status: Discontinued insulin aspart 6 unit, 0.06 mL, Route: SUB-Q, Drug form: SOLN, TID-Before Meals, Dosing Weight 81.818, kg, PRN Blood Glucose Results, Start date: 03/14/16 2:12:00 CDT, Duratio n: 30 day, Stop date: 04/13/16 2:11:00 CDT Notes: Roll in palms of hands gently; Do not shake vigorously. (Same as: Kalpesh Meza)"single patient use only"WASTE: F/P - Black; E - Municipal Trash Bin Stable f or 28 days at room temperature.Expires in days from Date Start Date: 03/14/16 Stop Date: 03/17/16 Status: Discontinued insulin aspart 4 unit, 0.04 mL, Route: SUB-Q, Drug form: SOLN, TID-Before Meals, Dosing Weight 81.818, kg, PRN Blood Glucose Results, Start date: 03/14/16 2:12:00 CDT, Duratio n: 30 day, Stop date: 04/13/16 2:11:00 CDT Notes: Roll in palms of hands gently; Do not shake vigorously. (Same as: NovoDOUGLAS G)"single patient use only"WASTE: F/P - Black; E - Municipal Trash Bin Stable f or 28 days at room temperature.Expires in days from Date Start Date: 03/14/16 Stop Date: 03/17/16 Status: Discontinued insulin aspart 2 unit, 0.02 mL, Route: SUB-Q, Drug form: SOLN, TID-Before Meals, Dosing Weight 81.818, kg, PRN Blood Glucose Results, Start date: 03/14/16 2:12:00 CDT, Duratio n: 30 day, Stop date: 04/13/16 2:11:00 CDT Notes: Roll in palms of hands gently; Do not shake vigorously. (Same as: NovoDOUGLAS G)"single patient use only"WASTE: F/P - Black; E - Municipal Trash Bin Stable f or 28 days at room temperature.Expires in days from Date Start Date: 03/14/16 Stop Date: 03/17/16 Status: Discontinued insulin aspart 10 unit, 0.1 mL, Route: SUB-Q, Drug form: SOLN, TID-Before Meals, Dosing Weight 81.818, kg, PRN Blood Glucose Results, Start date: 03/14/16 2:12:00 CDT, Duratio n: 30 day, Stop date: 04/13/16 2:11:00 CDT Notes: Roll in palms of hands gently; Do not shake vigorously. (Same as: NovoDOUGLAS G)"single patient use only"WASTE: F/P - Black; E - Municipal Trash Bin Stable f or 28 days at room temperature.Expires in days from Date Start Date: 03/14/16 Stop Date: 03/17/16 Status: Discontinued insulin aspart 1 unit, 0.01 mL, Route: SUB-Q, Drug form: SOLN, Bedtime, Dosing Weight 81.818, k g, PRN Blood Glucose Results, Start date: 03/14/16 2:12:00 CDT, Duration: 30 day , Stop date: 04/13/16 2:11:00 CDT Notes: Roll in palms of hands gently; Do not shake vigorously. (Same as: Kalpesh Meza)"single patient use only"WASTE: F/P - Black; E - Municipal Trash Bin Stable f or 28 days at room temperature.Expires in days from Date Start Date: 03/14/16 Stop Date: 03/17/16 Status: Discontinued insulin aspart 2 unit, 0.02 mL, Route: SUB-Q, Drug form: SOLN, Bedtime, Dosing Weight 81.818, k g, PRN Blood Glucose Results, Start date: 03/14/16 2:12:00 CDT, Duration: 30 day , Stop date: 04/13/16 2:11:00 CDT Notes: Roll in palms of hands gently; Do not shake vigorously. (Same as: Kalpesh Meza)"single patient use only"WASTE: F/P - Black; E - Municipal Trash Bin Stable f or 28 days at room temperature.Expires in days from Date Start Date: 03/14/16 Stop Date: 03/17/16 Status: Discontinued insulin aspart 4 unit, 0.04 mL, Route: SUB-Q, Drug form: SOLN, Bedtime, Dosing Weight 81.818, k g, PRN Blood Glucose Results, Start date: 03/14/16 2:12:00 CDT, Duration: 30 day , Stop date: 04/13/16 2:11:00 CDT Notes: Roll in palms of hands gently; Do not shake vigorously. (Same as: Kalpesh Meza)"single patient use only"WASTE: F/P - Black; E - Municipal Trash Bin Stable f or 28 days at room temperature.Expires in days from Date Start Date: 03/14/16 Stop Date: 03/17/16 Status: Discontinued insulin aspart 3 unit, 0.03 mL, Route: SUB-Q, Drug form: SOLN, Bedtime, Dosing Weight 81.818, k g, PRN Blood Glucose Results, Start date: 03/14/16 2:12:00 CDT, Duration: 30 day , Stop date: 04/13/16 2:11:00 CDT Notes: Roll in palms of hands gently; Do not shake vigorously. (Same as: NovoLO G)"single patient use only"WASTE: F/P - Black; E - Municipal Trash Bin Stable f or 28 days at room temperature.Expires in days from Date Start Date: 03/14/16 Stop Date: 03/17/16 Status: Discontinued insulin detemir 15 unit, 0.15 mL, Route: SUB-Q, Drug form: INJ, Daily, Dosing Weight 81.818, kg, Start date: 03/14/16 9:00:00 CDT, Duration: 30 day, Stop date: 04/12/16 9:00:00 CDT Notes: Same as Melissa not hold insulin without contacting prescriberWASTE: F/ P - Black; E - Municipal Trash Bin "single patient use only" Start Date: 03/14/16 Stop Date: 03/17/16 Status: Discontinued magnesium oxide 500 mg oral tablet 500 mg=1 tab, PO, Daily, X 7 day, # 7 tab, 0 Refill(s) Start Date: 03/17/16 Stop Date: 03/24/16 Status: Ordered magnesium sulfate 2 gm, 50 mL, Route: IVPB, Drug form: INJ, ONCE, Dosing Weight 81.818, kg, Total dose=2 gm, Start date: 03/17/16 8:29:00 CDT, Duration: 1 doses or times, Stop da te: 03/17/16 8:29:00 CDT Notes: WASTE: F/P - Sink; E - Municipal Trash Bin Start Date: 03/17/16 Stop Date: 03/17/16 Status: Completed magnesium sulfate 2 gm in Water 50 ml 2 gm, 50 mL, Route: IVPB, Drug form: INJ, ONCE, Dosing Weight 81.818, kg, Start date: 03/14/16 5:36:00 CDT, Duration: 2 hr, Stop date: 03/14/16 5:36:00 CDT Notes: WASTE: F/P - Sink; E - Municipal Trash Bin Start Date: 03/14/16 Stop Date: 03/14/16 Status: Completed metFORMIN 1000 mg oral tablet 1,000 mg=1 tab, PO, BID, 0 Refill(s) Start Date: 03/14/16 Status: Ordered methocarbamol 500 mg, 1 tab, Route: PO, Drug form: TAB, TID, Dosing Weight 81.818, kg, PRN Mus pito Spasms, Start date: 03/16/16 11:16:00 CDT, Duration: 30 day, Stop date: 04/03 11/16 11:15:00 CDT Notes: (Same as:Robaxin) Start Date: 03/16/16 Stop Date: 03/17/16 Status: Discontinued morphine Sulfate 2 mg, 1 mL, Route: IVP, Drug form: INJ, Q4H, Dosing Weight 81.818, kg, PRN Pain Score 7-10, Start date: 03/14/16 0:32:00 CDT, Duration: 30 day, Stop date: 04/13 0:31:00 CDT Notes: (Same as:MORPhine Sulfate) Start Date: 03/14/16 Stop Date: 03/14/16 Status: Discontinued Neutra-Phos 1 pkt, Route: PO, Drug Form: PDR/REC, Dosing Weight 81.818, kg, BID-Meals, Start date: 03/15/16 14:30:00 CDT, Duration: 2 day, Stop date: 03/17/16 8:00:00 CDT Notes: (Same as: Neutra-Phos) Each 1.25 gm pkt has 250mg phosphorous. Mix w/2.5 oz water and stir. Start Date: 03/15/16 Stop Date: 03/17/16 Status: Completed ondansetron 4 mg, 2 mL, Route: IVP, Drug form: INJ, Q6H, Dosing Weight 81.818, kg, PRN Nause a & Vomiting, Start date: 03/14/16 0:32:00 CDT, Duration: 30 day, Stop date: 04/13/16 0:31:00 CDT Notes: (Same as: Zofran) MEDICATION WASTE Product Size: 4 mgProduct Was casie: ___ mg Start Date: 03/14/16 Stop Date: 03/14/16 Status: Discontinued ondansetron 4 mg, 2 mL, Route: IVP, Drug form: INJ, Q6H, Dosing Weight 81.818, kg, PRN Nause a & Vomiting, Start date: 03/14/16 1:44:00 CDT, Duration: 30 day, Stop date: 04/13/16 1:43:00 CDT Notes: (Same as: Barron) MEDICATION WASTE Product Size: 4 mgProduct Was casie: ___ mg Start Date: 03/14/16 Stop Date: 03/17/16 Status: Discontinued potassium chloride 20 mEq oral tablet, extended release 40 mEq, 2 tab, Route: PO, Drug form: ERTAB, ONCE, Dosing Weight 81.818, kg, Star t date: 03/15/16 13:26:00 CDT, Stop date: 03/15/16 13:26:00 CDT Notes: (Same as: K-Dur 20)"Do Not Crush" With food and full glass of water Start Date: 03/15/16 Stop Date: 03/15/16 Status: Completed potassium chloride 20 mEq oral tablet, extended release 40 mEq, 2 tab, Route: PO, Drug form: ERTAB, ONCE, Dosing Weight 81.818, kg, Star t date: 03/16/16 11:24:00 CDT, Stop date: 03/16/16 11:24:00 CDT Notes: (Same as: K-Dur 20)"Do Not Crush" With food and full glass of water Start Date: 03/16/16 Stop Date: 03/16/16 Status: Completed potassium chloride 20 mEq oral tablet, extended release 20 mEq=1 tab, PO, Daily, # 7 tab, 0 Refill(s) Start Date: 03/17/16 Stop Date: 03/24/16 Status: Ordered potassium phosphate-sodium phosphate 155 mg-350 mg oral tablet 2 tab, Route: PO, Drug Form: PDR/REC, Dosing Weight 81.818, kg, ONCE, Start date : 03/14/16 5:36:00 CDT, Stop date: 03/14/16 5:36:00 CDT Notes: (Same as: Neutra-Phos) Each 1.25 gm pkt has 250mg phosphorous. Mix w/2.5 oz water and stir. Start Date: 03/14/16 Stop Date: 03/14/16 Status: Completed ranitidine 300 mg oral tablet 300 mg=1 tab, PO, Bedtime, 0 Refill(s) Start Date: 03/14/16 Status: Ordered Saline Flush 0.9% 10 ml, Route: IVP, Drug Form: INJ, Dosing Weight 81.818, kg, PRN, PRN Line Flush , Start date: 03/14/16 1:44:00 CDT, Duration: 30 day, Stop date: 04/13/16 1:43:0 0 CDT Notes: Same as: BD Posiflush Sterile Start Date: 03/14/16 Stop Date: 03/17/16 Status: Discontinued simvastatin 20 mg, 1 tab, Route: PO, Drug form: TAB, Bedtime, Dosing Weight 81.818, kg, Prio rity: NOW, Start date: 03/14/16 2:11:00 CDT, Duration: 30 day, Stop date: 21:00:00 CDT Notes: (Same as: Zocor) Start Date: 03/14/16 Stop Date: 03/17/16 Status: Discontinued Sodium Chloride 0.9% (Bolus) IV 1,000 mL, 1,000 ml/hr, Infuse Over: 1 hr, Route: IV, 1,000, Drug form: INJ, ONCE , Priority: STAT, Dosing Weight 81.818 kg, Start date: 03/13/16 18:49:00 CDT, Du ration: 1 doses or times, Stop date: 03/13/16 18:49:00 CDT Start Date: 03/13/16 Stop Date: 03/13/16 Status: Completed sodium chloride 0.9% 1000 ml INJ 1,000 mL 1,000 mL, Rate: 125 ml/hr, Infuse over: 8 hr, Route: IV, Dosing Weight 81.818 kg , Total Volume: 1,000, Start date: 03/14/16 1:44:00 CDT, Duration: 30 day, Stop date: 04/13/16 1:43:00 CDT Start Date: 03/14/16 Stop Date: 03/17/16 Status: Discontinued tolterodine 2 mg, PO, BID, 0 Refill(s) Start Date: 03/14/16 Status: Ordered Results ELECTROLYTES 1 2 3 Most recent to oldest [Reference Range]: 142 mEq/L (03/17/16 5:15 AM) 143 mEq/L (03/16/16 7:03 AM) 139 mEq/L (03/15/16 11:47 AM) Sodium Lvl [135-145 mEq/L] 3.7 mEq/L (03/17/16 5:15 AM) 3.4 mEq/L *LOW* (03/16/16 7:03 AM) 3.3 mEq/L *LOW* (03/15/16 11:47 AM) Potassium Lvl [3.5-5.1 mEq/L] 108 mEq/L (03/17/16 5:15 AM) 109 mEq/L (03/16/16 7:03 AM) 106 mEq/L (03/15/16 11:47 AM) Chloride Lvl [95-109 mEq/L] 26 mEq/L (03/17/16 5:15 AM) 24 mEq/L (03/16/16 7:03 AM) 23 mEq/L *LOW* (03/15/16 11:47 AM) CO2 [24-32 mEq/L] 11.7 mEq/L (03/17/16 5:15 AM) 13.4 mEq/L (03/16/16 7:03 AM) 13.3 mEq/L (03/15/16 11:47 AM) AGAP [10.0-20.0 mEq/L] CHEM PANEL 1 2 3 Most recent to oldest [Reference Range]: 0.64 mg/dL (03/17/16 5:15 AM) 0.57 mg/dL (03/16/16 7:03 AM) 0.95 mg/dL (03/15/16 11:47 AM) Creatinine Lvl [0.50-1.40 mg/dL] 90 mL/min/1.73m2 1 *NA* (03/17/16 5:15 AM) 93 mL/min/1.73m2 2 *NA* (03/16/16 7:03 AM) 60 mL/min/1.73m2 3 *NA* (03/15/16 11:47 AM) eGFR 3 mg/dL *LOW* (03/17/16 5:15 AM) 5 mg/dL *LOW* (03/16/16 7:03 AM) 6 mg/dL *LOW* (03/15/16 11:47 AM) BUN [7-22 mg/dL] 9 (03/13/16 7:13 PM) B/C Ratio [6-25] 133 mg/dL *HI* (03/17/16 5:15 AM) 166 mg/dL *HI* (03/16/16 7:03 AM) 182 mg/dL *HI* (03/15/16 11:47 AM) Glucose Lvl [70-99 mg/dL] 7.5 g/dL (03/13/16 7:13 PM) Total Protein [6.4-8.4 g/dL] 3.2 g/dL *LOW* (03/13/16 7:13 PM) Albumin Lvl [3.5-5.0 g/dL] 4.3 g/dL *HI* (03/13/16 7:13 PM) Globulin [2.0-4.0 g/dL] 0.7 (03/13/16 7:13 PM) A/G Ratio [0.7-1.6] 7.6 mg/dL *LOW* (03/17/16 5:15 AM) 7.4 mg/dL *LOW* (03/16/16 7:03 AM) 8.0 mg/dL *LOW* (03/15/16 11:47 AM) Calcium Lvl [8.5-10.5 mg/dL] 2.6 mg/dL (03/16/16 7:03 AM) 2.1 mg/dL *LOW* (03/15/16 11:47 AM) 1.1 mg/dL 4 *CRIT* (03/14/16 4:42 AM) Phosphorus [2.5-4.5 mg/dL] 1.5 mg/dL *LOW* (03/17/16 5:15 AM) 1.8 mg/dL (03/15/16 11:47 AM) 1.1 mg/dL *LOW* (03/14/16 4:42 AM) Magnesium Lvl [1.8-2.4 mg/dL] 19 unit/L (03/13/16 7:13 PM) ALT [0-65 unit/L] 17 unit/L (03/13/16 7:13 PM) AST [0-37 unit/L] 73 unit/L (03/13/16 7:13 PM) Alk Phos [39-136 unit/L] 0.5 mg/dL (03/13/16 7:13 PM) Bili Total [0.2-1.3 mg/dL] 1.3 mMol/L (03/13/16 11:03 PM) Lactic Acid Lvl [0.5-2.2 mMol/L] 1Result Comment: The eGFR is calculated using [...] be mul tiplied by the estimated BMI. 4Result Comment: Critical Result(s) called deloris Bryant at _03/14/2016 05:20 by_btd. Read back OK. CARDIAC ENZYMES 1 2 3 Most recent to oldest [Reference Range]: 47 unit/L (03/13/16 7:13 PM) Total CK [12-191 unit/L] <0.5 ng/mL (03/13/16 7:13 PM) CK MB [0.5-3.6 ng/mL] <1.1 (03/13/16 7:13 PM) CK MB Index [0.0-2.5] <0.02 ng/mL (03/13/16 7:13 PM) Troponin-I [0.00-0.40 ng/mL] URINE AND STOOL 1 2 3 Most recent to oldest [Reference Range]: Cloudy *ABN* (03/13/16 9:36 PM) UA Turbidity [Clear] Yellow *NA* (03/13/16 9:36 PM) UA Color [Yellow] 6.5 (03/13/16 9:36 PM) UA pH [5.0-8.0] 1.010 (03/13/16 9:36 PM) UA Spec Grav [<=1.030] Negative (03/13/16 9:36 PM) UA Glucose [Negative] Moderate *ABN* (03/13/16 9:36 PM) UA Blood [Negative] Negative *NA* (03/13/16 9:36 PM) UA Ketones [Negative] 100 mg/dL *ABN* (03/13/16 9:36 PM) UA Protein [Negative mg/dL] 0.2 EU/dL (03/13/16 9:36 PM) UA Urobilinogen [0.1-1.0 EU/dL] Negative *NA* (03/13/16 9:36 PM) UA Bili [Negative] Moderate *ABN* (03/13/16 9:36 PM) UA Leuk Est [Negative] Negative (03/13/16 9:36 PM) UA Nitrite [Negative] 51-100 /HPF *ABN* (03/13/16 9:36 PM) UA WBC [None Seen /HPF] 0-2 /HPF (03/13/16 9:36 PM) UA RBC [0-2 /HPF] Many /HPF (03/13/16 9:36 PM) UA Bacteria [None Seen /HPF] Rare /LPF (03/13/16 9:36 PM) UA Sq Epi [Few /LPF] None Seen (03/13/16 9:36 PM) UA Mucus [None Seen] HEMATOLOGY 1 2 3 Most recent to oldest [Reference Range]: 7.8 K/CMM (03/14/16 4:42 AM) 9.7 K/CMM (03/13/16 7:13 PM) WBC [3.7-10.4 K/CMM] 3.53 M/CMM *LOW* (03/14/16 4:42 AM) 3.91 M/CMM *LOW* (03/13/16 7:13 PM) RBC [4.20-5.40 M/CMM] 12.2 g/dL (03/14/16 4:42 AM) 13.4 g/dL (03/13/16 7:13 PM) Hgb [12.0-16.0 g/dL] 35.9 % *LOW* (03/14/16 4:42 AM) 41.0 % (03/13/16 7:13 PM) Hct [36.0-48.0 %] 101.6 fL *HI* (03/14/16 4:42 AM) 104.9 fL *HI* (03/13/16 7:13 PM) MCV [80.0-98.0 fL] 34.4 pg *HI* (03/14/16 4:42 AM) 34.2 pg *HI* (03/13/16 7:13 PM) MCH [27.0-31.0 pg] 33.9 g/dL (03/14/16 4:42 AM) 32.6 g/dL (03/13/16 7:13 PM) MCHC [32.0-36.0 g/dL] 13.1 % (03/14/16 4:42 AM) 13.2 % (03/13/16 7:13 PM) RDW [11.5-14.5 %] 138 K/CMM (03/14/16 4:42 AM) 155 K/CMM (03/13/16 7:13 PM) Platelet [133-450 K/CMM] 8.6 fL (03/14/16 4:42 AM) 8.8 fL (03/13/16 7: PM) MPV [7.4-10.4 fL] 82.3 % *HI* (03/14/16 4:42 AM) 84.5 % *HI* (03/13/16: PM) Segs [45.0-75.0 %] 8.2 % *LOW* (03/14/16 4:42 AM) 6.8 % *LOW* (03/13/16 7: PM) Lymphocytes [20.0-40.0 %] 9.1 % (03/14/16 4:42 AM) 8.5 % (03/13/16 7:13 PM) Monocytes [2.0-12.0 %] 0.1 % (03/14/16 4:42 AM) 0.1 % (03/13/16 7:13 PM) Eosinophils [0.0-4.0 %] 0.3 % (03/14/16 4:42 AM) 0.1 % (03/13/16 7:13 PM) Basophils [0.0-1.0 %] 6.4 K/CMM (03/14/16 4:42 AM) 8.2 K/CMM *HI* (03/13/16:13 PM) Segs-Bands # [1.5-8.1 K/CMM] 0.6 K/CMM *LOW* (03/14/16 4:42 AM) 0.7 K/CMM *LOW* (03/13/16 7:13 PM) Lymphocytes # [1.0-5.5 K/CMM] 0.7 K/CMM (03/14/16 4:42 AM) 0.8 K/CMM (03/13/16 7:13 PM) Monocytes # [0.0-0.8 K/CMM] 1+ *ABN* (03/14/16 4:42 AM) 2+ *ABN* (03/13/16 7:13 PM) Macrocyte [None Seen] Immunizations Given and Recorded Vaccine Date Status [...] No Assessment and Plan Extracted from: Title: discharge summary Author: Neida Moy Date: 03/17/16 Discharge Summary Date of Admission: 03/14/2016 Date of Discharge: 03/17/2016 Admitting physician: Physician at discharge: Dr. Neida Moy Admitting diagnoses: Urinary tract infection Sepsis secondary to urinary tract infection Uncontrolled diabetes mellitus Discharge diagnoses: Sepsis secondary to urinary tract infection Escherichia coli urinary tract infection Escherichia coli bacteremia Hypokalemia Hypophosphatemia Hypocalcemia Hypomagnesemia Malnutrition Uncontrolled type 2 diabetes mellitus Sinus arrhythmia Hospital course: This is a 70-year-old woman admitted with a urinary tract infection and low blood pressure consistent with sepsis. She was found to have Escherichia coli bacteremia and Escherichia coli in her urine. She was managed with appropriate antibiotics and we'll completed a two-week course. While here she was had marked electrolyte abnormalities and has had poor intake for months. She visited with snowboard instructor recommends outpatient follow-up. Electrolytes were replaced. She had frequent sinus arrhythmia and was seen by cardiology. Echocardiogram showed only mild aortic stenosis. Procedures: None Consultations: Cardiology, Dr. Ziyad Marroquin Physical examination: Gen: Resting comfortably in bed. No acute distress. CV: Regular rate and rhythm. Resp: Nonlabored respirations. Neuro: Alert. Oriented. Discharge medications: see discharge medication reconciliation form Discharge condition: Good Followup: With primary care physician in 2 weeks. Time spent on discharge: Approximately 35 minutes. This includes discussion of care with patient with information technology auditor. The patient was examined by me on day of discharge.
--- OUTSIDE RECORDS SUMMARY | 2018-06-18 11:05 | XMS REPORT | Summary of Care ---
Author Author [facility] Address Unknown Phone Unavailable Encounter [facility] Nathalie(JAMES) [id number] Date(s): 11/20/16 - 11/20/16 [facility] [address] [place] [address]- Discharge Disposition: Home or Self Care Attending [...]
--- OUTSIDE RECORDS SUMMARY | 2018-06-18 11:05 | XMS REPORT | Summary of Care ---
Author Author [facility] Organization [facility] Address Unknown Phone Unavailable Encounter HQ Nathalie(FIN) [phone] Date(s): 09/07/16 - 09/07/16 [facility] [address] [place] [address]- [phone] Discharge Disposition: Home or Self Care Attending Physician: Stewart Weems MD Referring Physician: Stewart Weems MD Vital Signs No [...]
--- OUTSIDE RECORDS SUMMARY | 2018-06-18 11:05 | XMS REPORT | CCD ---
Author Author Auto Generated Organization [facility] Address Unknown Phone Unavailable Care Team Providers Care Manager Analysis Name Role Phone Oscar Cantu CP Allergies, Adverse Reactions, Alerts Substance Reaction Status NKDA Active Problem List Condition Effective Dates Status Diabetes mellitus Active GERD - Gastro-esophageal reflux disease Active Hypercholesterolemia Active Knee replacement1 05/16/2011 Active Pain Active 1right total knee replacement Medications Medication Instructions Start Date End Date Status pneumococcal 0.5 ml, Route: IM, Drug Form: INJ, 05/16/2011 05/17/2011 Completed 23-valent vaccine ONCALL, Start date: 05/16/11 13:57:09, Stop date: 06/15/11 13:52:09 Carafate 1 g oral 1 gm, 1 tab, PO, QID-Before Meals, 08/14/2012 Ordered tablet 120 tab, Substitution Allowed Immunizations Vaccine Date Status pneumococcal 23-valent vaccine 05/17/2011 Auth (Verified)
--- OUTSIDE RECORDS SUMMARY | 2018-06-18 11:05 | XMS REPORT | CCD ---
Author Author Auto Generated Organization [facility] Address Unknown Phone Unavailable Care Team Providers Care Etiology Teacher Name Role Phone Pilar Verdin CP Allergies, Adverse Reactions, Alerts Substance Reaction [...] date: 05/16/11 13:57:09, Stop date: 06/15/11 13:52:09 acetaminophen 975 mg, 30.45 mL, Route: PO, Drug 05/19/2012 05/19/2012 Completed form: LIQ, ONCE, Dosing Weight 75.455, kg, Priority: STAT, Start date: 05/19/12 9:37:00, Stop date: 05/19/12 9:37:00 Immunizations Vaccine Date Status pneumococcal 23-valent vaccine 05/17/2011 Auth (Verified) Vital Signs Most recent to oldest [Reference Range]: 1 Height 152.40 cm (05/19/2012 08:20:00) Weight 75.455 kg (05/19/2012 08:20:00)
--- OUTSIDE RECORDS SUMMARY | 2018-06-18 11:05 | XMS REPORT | CCD ---
Author Author Auto Generated Organization [facility] Address Unknown Phone Unavailable Care Team Providers Care Employment Coach Name Role Phone CANDELARIA Martinez CP Unavailable Chandana Dorita CP Unavailable Meg Hartman CP Unavailable Varun Moreau CP Unavailable Reji Shelton CP Unavailable Leanne Connor CP Karly Zapata CP Unavailable Hodan Pina CP Unavailable Giselle Paulino CP [phone] Clarisa Menchaca CP [phone] Gayla Ruiz CP [phone] Xochilt Damon CP Wing Ravi CP Smooth Estrada CP Unavailable Kanchan Fatima CP Unavailable Gretchen Calderón CP [phone] Kaye Lopez CP [phone] Pop Reyes CP Unavailable Latha Pink CP Unavailable Keyonna Lewis CP Unavailable Vaishnavi James CP Unavailable Charley Garcia CP Unavailable Froylan Cuevas CP Unavailable Chelo Robertson CP Unavailable Chary Lopez CP Ivonne Amezquita CP Neo Mckeon CP Unavailable Noa Saez CP [phone] Arti Sky CP Unavailable Fatou Coleman CP Unavailable Orly Castillo CP Unavailable Nima Akhtar CP Unavailable Omaira Ying CP [phone] Torres Tobin CP Unavailable Jazmin Brunnerily CP [phone] Neela Garcia CP Li Jordan CP Unavailable AnishHany Mike CP Louis Moyne CP [phone] Jessica Rose CP Unavailable Gaston Jeaneth CP Unavailable Malkaris Emamil CP [phone] SYSTEM, SYSTEM CP Unavailable Stephanie Lebron CP Unavailable Nicki Eaton CP [phone] Breanna Field CP [phone] Shasta Connor CP Unavailable Dorita Cesar CP Unavailable Dinah Odonnell CP Unavailable Samanta Walden CP Unavailable Fabrice Goldsmith CP [phone] Cinthya Nevarez CP Unavailable Lawanda Knight CP [phone] Yue Dhaliwal CP Unavailable Bennie Gray CP [id number] PCP, No Patient Contact CP Unavailable Perla Cheng I CP [phone] Elke Villanueva CP [phone] Elisa Retana CP [phone] Mikayla Maldonado CP [id number] Kelly Soares CP [phone] Sam Diamond CP Unavailable Monse Villanueva CP Rama Knight CP [phone] Barrington Zurita CP Unavailable Cinthya Pfeiffer CP [phone] Allergies, Adverse Reactions, Alerts Substance Reaction Status NKDA ?? Active Problem List Condition Effective Dates Status Diabetes mellitus ?? Active GERD - Gastro-esophageal reflux disease ?? Active Hypercholesterolemia ?? Active Knee replacement1 05/16/2011 Active Pain ?? Active 1right total knee replacement Medications Medication Instructions Start Date End Date Status aspirin 81 mg 81 mg, 1 tab, Route: PO, Drug form: 05/20/2011 05/26/2011 Discontinued tablet, enteric ECTAB, Daily, Start date: 05/20/11 coated 8:00:00, Duration: 30 day, Stop date: 06/18/11 8:00:00 Restoril 15 mg, 1 cap, Route: PO, Drug form: 05/19/2011 05/26/2011 Discontinued CAP, Bedtime, PRN Sleep, Start date: 05/19/11 21:52:00, Duration: 30 day, Stop date: 06/18/11 21:51:00 bimatoprost 0.03% 1 drp, Route: BOTH EYES, Bedtime, 05/19/2011 05/26/2011 Discontinued ophthalmic solution Drug form: SOLN, Start date: 05/19/11 22:00:00, Duration: 30 day, Stop date: 06/18/11 21:00:00 ferrous sulfate 325 mg, 1 tab, Route: PO, Drug 05/21/2011 05/22/2011 Discontinued form: ECTAB, BID-Meals, Start date: 05/21/11 8:00:00, Duration: 30 day, Stop date: 06/20/11 7:00:00 acetaminophen-hydroc 2 tab, Route: PO, Drug Form: TAB, 05/22/2011 05/26/2011 Discontinued odone 325 mg-7.5 mg BID, Start date: 05/22/11 12:00:00, oral tablet Stop date: 06/21/11 7:00:00 pneumococcal 0.5 ml, Route: IM, Drug Form: INJ, 05/16/2011 05/17/2011 Completed 23-valent vaccine ONCALL, Start date: 05/16/11 13:57:09, Stop date: 06/15/11 13:52:09 Zofran ODT 4 mg, 1 tab, Route: SL, Drug form: 05/19/2011 05/26/2011 Discontinued TABDIS, Q6H, PRN Nausea, Start date: 05/19/11 21:51:00, Duration: 30 day, Stop date: 06/18/11 21:50:00 Benadryl 25 mg, 0.5 mL, Route: IV, Drug 05/19/2011 05/26/2011 Discontinued form: INJ, Q6H, PRN Itching, Start date: 05/19/11 21:50:00, Duration: 30 day, Stop date: 06/18/11 21:49:00 acetaminophen-hydroc 2 tab, Route: PO, Drug Form: TAB, 05/19/2011 05/26/2011 Discontinued odone 325 mg-7.5 mg Q4H, PRN Pain Score 4-6, Start oral tablet date: 05/19/11 21:49:00, Duration: 30 day, Stop date: 06/18/11 21:48:00 acetaminophen-hydroc 1 tab, Route: PO, Drug Form: TAB, 05/19/2011 05/26/2011 Discontinued odone 325 mg-7.5 mg Q4H, PRN Pain Score 4-6, Start oral tablet date: 05/19/11 21:48:00, Duration: 30 day, Stop date: 06/18/11 21:47:00 Dextrose 50% in 50 mL, Route: IVP, PRN, Blood 05/19/2011 05/26/2011 Discontinued Water IV Glucose Results, Start date: 05/19/11 21:47:00, Duration: 30 day, Stop date: 06/18/11 21:46:00 Dextrose 50% in 25 mL, Route: IVP, PRN, Blood 05/19/2011 05/26/2011 Discontinued Water IV Glucose Results, Start date: 05/19/11 21:47:00, Duration: 30 day, Stop date: 06/18/11 21:46:00 NovoLog FlexPen 15 unit, 0.15 mL, Route: SUB-Q, 05/19/2011 05/26/2011 Discontinued Drug form: SOLN, Sliding Scale, PRN Blood Glucose Results, Start date: 05/19/11 21:46:00, Duration: 30 day, Stop date: 06/18/11 21:45:00 NovoLog FlexPen 12 unit, 0.12 mL, Route: SUB-Q, 05/19/2011 05/26/2011 Discontinued Drug form: SOLN, Sliding Scale, PRN Blood Glucose Results, Start date: 05/19/11 21:46:00, Duration: 30 day, Stop date: 06/18/11 21:45:00 NovoLog FlexPen 9 unit, 0.09 mL, Route: SUB-Q, Drug 05/19/2011 05/26/2011 Discontinued form: SOLN, Sliding Scale, PRN Blood Glucose Results, Start date: 05/19/11 21:46:00, Duration: 30 day, Stop date: 06/18/11 21:45:00 NovoLog FlexPen 6 unit, 0.06 mL, Route: SUB-Q, Drug 05/19/2011 05/26/2011 Discontinued form: SOLN, Sliding Scale, PRN Blood Glucose Results, Start date: 05/19/11 21:46:00, Duration: 30 day, Stop date: 06/18/11 21:45:00 NovoLog FlexPen 4 unit, 0.04 mL, Route: SUB-Q, Drug 05/19/2011 05/26/2011 Discontinued form: SOLN, Sliding Scale, PRN Blood Glucose Results, Start date: 05/19/11 21:46:00, Duration: 30 day, Stop date: 06/18/11 21:45:00 Tylenol 650 mg, 2 tab, Route: PO, Drug 05/19/2011 05/26/2011 Discontinued form: TAB, Q4H, PRN Pain, Start date: 05/19/11 21:45:00, Duration: 30 day, Stop date: 06/18/11 21:44:00 Maalox Plus 30 mL, Route: PO, Drug Form: SUSP, 05/19/2011 05/26/2011 Discontinued Q4H, PRN Indigestion, Start date: 05/19/11 21:45:00, Duration: 30 day, Stop date: 06/18/11 21:44:00 Dulcolax Laxative 10 mg, 1 supp, Route: UT, Drug 05/19/2011 05/26/2011 Discontinued form: SUPP, PRN, PRN Constipation, Start date: 05/19/11 21:45:00, Duration: 30 day, Stop date: 06/18/11 21:44:00 Milk of Magnesia 30 mL, Route: PO, Drug Form: SUSP, 05/19/2011 05/26/2011 Discontinued Bedtime, PRN Constipation, Start date: 05/19/11 21:45:00, Duration: 30 day, Stop date: 06/18/11 21:44:00 Dulcolax Laxative 5 mg, 1 tab, Route: PO, Drug form: 05/19/2011 05/26/2011 Discontinued ECTAB, PRN, PRN Constipation, Start date: 05/19/11 21:45:00, Duration: 30 day, Stop date: 06/18/11 21:44:00 Dulcolax Laxative 10 mg, 2 tab, Route: PO, Drug form: 05/19/2011 05/26/2011 Discontinued ECTAB, PRN, PRN Constipation, Start date: 05/19/11 21:45:00, Duration: 30 day, Stop date: 06/18/11 21:44:00 DiaBeta 10 mg, 2 tab, Route: PO, Drug form: 05/20/2011 05/26/2011 Discontinued TAB, Daily, Start date: 05/20/11 8:00:00, Duration: 30 day, Stop date: 06/18/11 8:00:00 Zocor 10 mg, 1 tab, Route: PO, Drug form: 05/19/2011 05/26/2011 Discontinued TAB, Bedtime, Start date: 05/19/11 22:00:00, Duration: 30 day, Stop date: 06/18/11 21:00:00 Actos 30 mg, 1 tab, Route: PO, Drug form: 05/20/2011 05/26/2011 Discontinued TAB, Daily, Start date: 05/20/11 8:00:00, Duration: 30 day, Stop date: 06/18/11 8:00:00 ketorolac 30 mg/mL 15 mg, 0.5 mL, Route: IV, Drug 05/20/2011 05/20/2011 Discontinued injectable solution form: INJ, Q6H, Start date: 05/20/11 0:00:00, Stop date: 05/22/11 6:00:00 Protonix 40 mg, 1 tab, Route: PO, Drug form: 05/20/2011 05/26/2011 Discontinued ECTAB, Before Dinner, Start date: 05/20/11 16:30:00, Duration: 30 day, Stop date: 06/18/11 16:30:00 Glucophage 1,000 mg, 2 tab, Route: PO, Drug 05/20/2011 05/24/2011 Discontinued form: TAB, Daily, Start date: 05/20/11 8:00:00, Duration: 30 day, Stop date: 06/18/11 8:00:00 Neurontin 300 mg, 1 cap, Route: PO, Drug 05/20/2011 05/26/2011 Discontinued form: CAP, TID, Start date: 05/20/11 8:00:00, Duration: 30 day, Stop date: 06/18/11 17:00:00 TriCor 145 mg, 1 tab, Route: PO, Drug 05/20/2011 05/26/2011 Discontinued form: TAB, Daily, Start date: 05/20/11 8:00:00, Duration: 30 day, Stop date: 06/18/11 8:00:00 Lovenox 40 mg, 0.4 mL, Route: SUB-Q, Drug 05/20/2011 05/26/2011 Discontinued form: INJ, [id number], Start date: 05/20/11 8:00:00, Duration: 30 day, Stop date: 06/18/11 8:00:00 Glucophage 1,000 mg, 2 tab, Route: PO, Drug 05/24/2011 05/26/2011 Discontinued form: TAB, BID, Start date: 05/24/11 8:00:00, Duration: 30 day, Stop date: 06/22/11 20:00:00 Senokot S 2 tab, Route: PO, Drug Form: TAB, 05/20/2011 05/26/2011 Discontinued Bedtime, Start date: 05/20/11 21:00:00, Duration: 30 day, Stop date: 06/18/11 21:00:00 docusate sodium 100 100 mg, 1 cap, Route: PO, Drug 05/20/2011 05/26/2011 Discontinued mg oral capsule form: CAP, Daily, Start date: 05/20/11 8:00:00, Duration: 30 day, Stop date: 06/18/11 8:00:00 Immunizations Vaccine Date Status pneumococcal 23-valent vaccine 05/17/2011 Auth (Verified) Vital Signs Most recent to oldest [Reference Range]: 1 2 3 Height 152.40 cm (05/19/2011 19:26:00) ?? 152.40 cm (05/19/2011 18:46:00) ? Current Weight 74.545 kg (05/21/2011 12:06:00) ?? 74.545 kg (05/21/2011 07:00:00) ?? 79.099 kg (05/19/2011 19:38:00) ?? Temperature Oral [96.4-99.1 DegF] 98.2 DegF (05/26/2011 07:45:00) ?? 98.1 DegF (05/25/2011 16:51:00) ?? 97.5 DegF (05/25/2011 06:00:00) ?? Systolic Blood Pressure [90-140 mmHg] 102 mmHg (05/26/2011 07:45:00) ?? 123 mmHg (05/25/2011 16:51:00) ?? 126 mmHg (05/25/2011 06:00:00) ?? Diastolic Blood Pressure [60-90 mmHg] 46 mmHg *LOW* (05/26/2011 07:45:00) ?? 66 mmHg (05/25/2011 16:51:00) ?? 58 mmHg *LOW* (05/25/2011 06:00:00) ?? Respiratory Rate [14-20 BRMIN] 18 BRMIN (05/26/2011 07:45:00) ?? 20 BRMIN (05/25/2011 16:51:00) ?? 18 BRMIN (05/25/2011 06:00:00) ?? Peripheral Pulse Rate [60-100 bpm] 75 bpm (05/26/2011 07:45:00) ?? 91 bpm (05/25/2011 16:51:00) ?? 75 bpm (05/25/2011 06:00:00) ?? Weight 79.099 kg (05/19/2011 19:26:00) ?? 79.176 kg (05/19/2011 18:46:00) ? Results BEDSIDE GLUCOSE TESTING Most recent to oldest [Reference Range]: 1 2 3 Gluc POC Lifscn [65-110 mg/dL] 214 mg/dL 1 *HI* (05/26/2011 11:04:00) ?? 207 mg/dL 2 *HI* (05/26/2011 05:42:00) ?? 280 mg/dL 3 *HI* (05/25/2011 20:47:00) ?? Comment1 Notify RN/MD *NA* (05/26/2011 11:04:00) ?? Notify RN/MD *NA* (05/26/2011 05:42:00) ?? Notify RN/MD *NA* (05/25/2011 16:35:00) ?? Comment2 Assess patient *NA* (05/26/2011 11:04:00) ?? Assess patient *NA* (05/24/2011 15:44:00) ?? Assess patient *NA* (05/24/2011 08:07:00) ?? 1Interpretive Data: Upper Reportable Limit: 200 mg/dL. 2Interpretive Data: Upper Reportable Limit: 200 mg/dL. 3Interpretive Data: Upper Reportable Limit: 200 mg/dL. CHEMISTRY Most recent to oldest [Reference Range]: 1 2 3 Sodium Lvl [135-145 mEq/L] 139 mEq/L (05/22/2011 04:15:00) ? Potassium Lvl [3.5-5.1 mEq/L] 4.8 mEq/L (05/22/2011 04:15:00) ? Chloride Lvl [95-109 mEq/L] 101 mEq/L (05/22/2011 04:15:00) ? CO2 [24-32 mEq/L] 28 mEq/L (05/22/2011 04:15:00) ? AGAP [10.0-20.0 mEq/L] 14.8 mEq/L (05/22/2011 04:15:00) ? Creatinine Lvl [0.5-1.4 mg/dL] 0.9 mg/dL (05/22/2011 04:15:00) ? BUN [7-22 mg/dL] 14 mg/dL (05/22/2011 04:15:00) ? Glucose Lvl 147 mg/dL 4 *NA* (05/22/2011 04:15:00) ? Calcium Lvl [8.5-10.5 mg/dL] 8.9 mg/dL (05/22/2011 04:15:00) ? CHD Risk [3.90-5.80] 2.15 *LOW* (05/21/2011 03:20:00) ? Chol [120-200 mg/dL] 129 mg/dL (05/21/2011 03:20:00) ? Trig [0-200 mg/dL] 115 mg/dL (05/21/2011 03:20:00) ? HDL [>>=35 mg/dL] 60 mg/dL (05/21/2011 03:20:00) ? LDL [0-129 mg/dL] 46 mg/dL (05/21/2011 03:20:00) ? Hgb A1C 6.9 % 5 *NA* (05/21/2011 03:20:00) ? 4Interpretive Data: Reference Ranges : 0 - 7 days : 41 - 90 mg/dL7 days - 150 yrs : 70 - 99 mg/dL (fasting), based on the clinical recommendations of the [place] [employer]. 5Interpretive Data: HbA1C% eAG(mg/dL) Interpretation 6.0 126 Very good control 6.5 140 Very good control 7.0 154 Good Control 7.5 169 Good Control 8.0 183 Marginal Control, take action to lower 8.5 197 Marginal Control, take action to lower 9.0 212 Poor Control, take action to lower 9.5 226 Poor Control, take action to lower10.0 240 Poor Control, take action to lower HEMATOLOGY Most recent to oldest [Reference Range]: 1 2 3 WBC [3.7-10.4 K/CMM] 6.9 K/CMM (05/25/2011 03:30:00) ?? 4.9 K/CMM (05/22/2011 04:15:00) ?? 5.1 K/CMM (05/21/2011 03:20:00) ?? RBC [4.20-5.40 M/CMM] 2.96 M/CMM *LOW* (05/25/2011 03:30:00) ?? 3.06 M/CMM *LOW* (05/22/2011 04:15:00) ?? 2.80 M/CMM *LOW* (05/21/2011 03:20:00) ?? Hgb [12.0-16.0 g/dL] 9.0 g/dL *LOW* (05/25/2011 03:30:00) ?? 9.2 g/dL *LOW* (05/22/2011 04:15:00) ?? 8.5 g/dL *LOW* (05/21/2011 03:20:00) ?? Hct [36.0-48.0 %] 27.6 % *LOW* (05/25/2011 03:30:00) ?? 27.9 % *LOW* (05/22/2011 04:15:00) ?? 25.6 % *LOW* (05/21/2011 03:20:00) ?? MCV [81.0-99.0 fL] 93.2 fL (05/25/2011 03:30:00) ?? 91.2 fL (05/22/2011 04:15:00) ?? 91.5 fL (05/21/2011 03:20:00) ?? MCH [27.0-31.0 pg] 30.3 pg (05/25/2011 03:30:00) ?? 30.0 pg (05/22/2011 04:15:00) ?? 30.4 pg (05/21/2011 03:20:00) ?? MCHC [32.0-36.0 g/dL] 32.6 g/dL (05/25/2011 03:30:00) ?? 32.9 g/dL (05/22/2011 04:15:00) ?? 33.2 g/dL (05/21/2011 03:20:00) ?? RDW [11.5-14.5 %] 15.3 % *HI* (05/25/2011 03:30:00) ?? 14.1 % (05/22/2011 04:15:00) ?? 15.0 % *HI* (05/21/2011 03:20:00) ?? Platelet [133-450 K/CMM] 468 K/CMM *HI* (05/25/2011 03:30:00) ?? 317 K/CMM (05/22/2011 04:15:00) ?? 262 K/CMM (05/21/2011 03:20:00) ?? MPV [7.4-10.4 fL] 7.6 fL (05/25/2011 03:30:00) ?? 7.9 fL (05/22/2011 04:15:00) ?? 8.1 fL (05/21/2011 03:20:00) ?? Segs [45.0-75.0 %] 50.0 % (05/25/2011 03:30:00) ?? 49.5 % (05/22/2011 04:15:00) ?? 46.9 % (05/21/2011 03:20:00) ?? Lymphocytes [20.0-40.0 %] 31.1 % (05/25/2011 03:30:00) ?? 32.5 % (05/22/2011 04:15:00) ?? 35.4 % (05/21/2011 03:20:00) ?? Monocytes [2.0-12.0 %] 12.3 % *HI* (05/25/2011 03:30:00) ?? 10.3 % (05/22/2011 04:15:00) ?? 11.1 % (05/21/2011 03:20:00) ?? Eosinophils [0.0-4.0 %] 6.0 % *HI* (05/25/2011 03:30:00) ?? 7.4 % *HI* (05/22/2011 04:15:00) ?? 6.1 % *HI* (05/21/2011 03:20:00) ?? Basophils [0.0-1.0 %] 0.6 % (05/25/2011 03:30:00) ?? 0.3 % (05/22/2011 04:15:00) ?? 0.5 % (05/21/2011 03:20:00) ?? Segs-Bands # [1.5-8.1 K/CMM] 3.4 K/CMM (05/25/2011 03:30:00) ?? 2.4 K/CMM (05/22/2011 04:15:00) ?? 2.4 K/CMM (05/21/2011 03:20:00) ?? Lymphocytes # [1.0-5.5 K/CMM] 2.1 K/CMM (05/25/2011 03:30:00) ?? 1.6 K/CMM (05/22/2011 04:15:00) ?? 1.8 K/CMM (05/21/2011 03:20:00) ?? Monocytes # [0.0-0.8 K/CMM] 0.8 K/CMM (05/25/2011 03:30:00) ?? 0.5 K/CMM (05/22/2011 04:15:00) ?? 0.6 K/CMM (05/21/2011 03:20:00) ?? Eosinophils # [0.0-0.5 K/CMM] 0.4 K/CMM (05/25/2011 03:30:00) ?? 0.4 K/CMM (05/22/2011 04:15:00) ?? 0.3 K/CMM (05/21/2011 03:20:00) ?? Basophils # [0.0-0.2 K/CMM] 0.0 K/CMM (05/25/2011 03:30:00) ?? 0.0 K/CMM (05/22/2011 04:15:00) ?? 0.0 K/CMM (05/21/2011 03:20:00) ??
--- OUTSIDE RECORDS SUMMARY | 2018-06-18 11:06 | XMS REPORT ---
Author Author Elizabeth Lopez [facility] [employer] Address Unknown Phone Unavailable Care Team Providers Care Industry Segment Specialist Name Role Phone Elizabeth Lopez CP Unavailable Allergies, Adverse Reactions, Alerts Substance Reaction Event Type N.K.D.A. Info Not Available Non Drug Allergy Problems Problem Type Condition Code Onset Dates Condition Status Assessment Obesity (BMI 30.0-34.9) E66.9 Active Assessment Hypercholesterolemia E78.00 Active Assessment Preop cardiovascular exam Z01.810 Active Assessment Nonrheumatic mitral valve regurgitation I34.0 Active Assessment Type 2 diabetes mellitus without complication, without long-term current use of insulin E11.9 Active Problem Obesity (BMI 30.0-34.9) E66.9 Active Problem Type 2 diabetes mellitus without complication, without long-term current use of insulin E11.9 Active Problem Nonrheumatic mitral valve regurgitation I34.0 Active Assessment Abnormal ECG R94.31 Active Assessment PVD (peripheral vascular disease) I73.9 Active Problem Hypercholesterolemia E78.00 Active Problem PVD (peripheral vascular disease) I73.9 Active Medications Medication Code System Code Instructions Start Date End Date Status Dosage Vitamin D (Ergocalciferol) [facility] [address]-72 93329 UNIT Orally Active 1 capsule Gabapentin [facility] [address]-47 300 MG Orally Once a day Active 1 capsule Atorvastatin Calcium [facility] [address]-62 40 MG Orally Once a day Active 1 tablet B Complete [facility] [address] - Orally Active not defined Janumet XR [facility] [address]-85 50-1000 MG Orally twice a day Active 1 tablet with evening meal Glimepiride [facility] [address]-89 4 MG Orally Twice a day Active 1 tablet with breakfast or the first main meal of the day Pantoprazole Sodium [facility] [address]-36 40 MG Orally Once a day Active 1 tablet Vital Signs Date/Time: February 20, 2017 BMI 30.85 Index Weight 158 lbs Height 60 in Cardiac Monitoring Heart Rate 80 /min Blood Pressure Diastolic 70 mm Hg Blood Pressure Systolic 108 mm Hg Results No Known Results Summary Purpose [employer] Submission
--- OUTSIDE RECORDS SUMMARY | 2018-06-18 11:06 | XMS REPORT ---
Author Author [facility] Address Unknown Phone Unavailable Care Team Providers Care Outsole Rounder Name Role Phone YUE PIMENTEL Unavailable Unavailable Problems This patient has no known problems. Allergies, Adverse Reactions, Alerts This patient has no known allergies or adverse reactions. Medications This patient has no known medications. Results Test Description Test Time Test Comments Text Results Atomic Results Result Comments CHEST 2 VIEWS 2018-06-05 11:17:00 [place] [address] Patient Name: CARLITO NEWSOME MR #: [id number] : 1945 Age/Sex: 72/F Req #: [id number] Adm Physician: Ordered by: YUE PIMENTEL MD Report #: [id number] Location: OR Room/Bed: Procedure: [id number] DX/CHEST 2 VIEWS Exam Date: Exam Time: REPORT STATUS: Signed EXAMINATION: PA and lateral views of the chest. COMPARISON: None CLINICAL HISTORY: Preoperative evaluation, urologic surgery DISCUSSION: Lines/tubes: None. Lungs: The lungs are well inflated and clear. No pneumonia or pulmonary edema. Pleura: No pleural effusion or pneumothorax. Heart and mediastinum: The cardiomediastinal silhouette is normal. Bones and soft tissues: No acute bony abnormalities. IMPRESSION: No acute cardiopulmonary abnormalities. Signed by: Dr. Nichole Cano M.D. on 06/05/2018 11:18 AM Dictated By: NICHOLE CANO MD [id number] Transcribed By: FEI on 06/05/18 1118 COPY TO: YUE PIMENTEL MD
--- OUTSIDE RECORDS SUMMARY | 2018-06-18 11:06 | XMS REPORT ---
Author Author Elizabeth Lopez Organization [employer] Address Unknown Phone Unavailable Care Team Providers Care Repair Specialist Name Role Phone Elizabeth Lopez CP Unavailable Allergies No Known Allergies Problems Problem Type Condition Code Onset Dates Condition Status Problem Type 2 diabetes mellitus without complication, without long-term current use of insulin E11.9 Active Problem Hypercholesterolemia E78.00 Active Problem Obesity (BMI 30.0-34.9) E66.9 Active Problem PVD (peripheral vascular disease) I73.9 Active Assessment Abnormal ECG R94.31 Active Medications No Known Medications Results No Known Results Summary Purpose eClinical[employer] Submission
== END | disposition home or self-care (01) ==
LOC: OR 05:34
PROVIDERS: ATTEND Urology
DX: N30.80 Other cystitis without hematuria (principal); N81.10 Cystocele, unspecified; N39.46 Mixed incontinence; R35.1 Nocturia; N95.2 Postmenopausal atrophic vaginitis; E11.22 Type 2 diabetes mellitus with diabetic chronic kidney disease; I12.9 Hypertensive chronic kidney disease with stage 1 through stage 4 chronic kidney disease, or unspecified chronic kidney disease; N18.9 Chronic kidney disease, unspecified; Z01.810 Encounter for preprocedural cardiovascular examination; Z01.812 Encounter for preprocedural laboratory examination; Z01.818 Encounter for other preprocedural examination; Z79.4 Long term (current) use of insulin; Z68.30 Body mass index [BMI] 30.0-30.9, adult
CPT/HCPCS: 36415 ×2; 52005; 71046; 74420; 80048; 82948; 85025; 93005; C1758; J0696; Q9967